=== PATIENT | male | born 1945 | race Caucasian/White ===

== ENCOUNTER → 2019-09-17 11:13 | Outpatient (BNVA) | payer MEDICARE, OTHER, SELFPAY | PROVIDERS: Family Provider Internal Medicine; PCP Internal Medicine; Visit Provider Internal Medicine Cardiovascular Disease | DX: I48.91 Unspecified atrial fibrillation (principal) | CPT/HCPCS: 85610 ==

== ENCOUNTER → 2019-10-14 09:42 | Outpatient (BNVA) | payer MEDICARE, OTHER, SELFPAY | PROVIDERS: Family Provider Internal Medicine; PCP Internal Medicine; Visit Provider Internal Medicine Cardiovascular Disease | DX: I48.91 Unspecified atrial fibrillation (principal) | CPT/HCPCS: 85610 ==

== ENCOUNTER → 2019-11-09 11:27 | Outpatient (BNVA) | payer MEDICARE, OTHER, SELFPAY | PROVIDERS: Family Provider Internal Medicine; PCP Internal Medicine; Visit Provider Urology | DX: N13.8 Other obstructive and reflux uropathy (principal); N40.1 Benign prostatic hyperplasia with lower urinary tract symptoms; C61 Malignant neoplasm of prostate; R30.0 Dysuria; R31.0 Gross hematuria | CPT/HCPCS: 80053; 81001; 84153 ==

== ENCOUNTER → 2019-11-11 10:10 | Outpatient (BNVA) | payer MEDICARE, OTHER, SELFPAY | PROVIDERS: Family Provider Internal Medicine; PCP Internal Medicine; Visit Provider Internal Medicine Cardiovascular Disease | DX: I48.91 Unspecified atrial fibrillation (principal) | CPT/HCPCS: 85610 ==

== ENCOUNTER → 2019-11-18 08:55 | Outpatient (BNVA) | payer MEDICARE, OTHER, SELFPAY | PROVIDERS: Family Provider Internal Medicine; PCP Internal Medicine; Visit Provider Internal Medicine Cardiovascular Disease | DX: I48.91 Unspecified atrial fibrillation (principal) | CPT/HCPCS: 85610 ==

== ENCOUNTER → 2020-01-19 08:02 | Outpatient (BNVA) | payer MEDICARE, OTHER, SELFPAY | PROVIDERS: Family Provider Internal Medicine; PCP Internal Medicine; Visit Provider Urology | DX: R31.0 Gross hematuria (principal); C61 Malignant neoplasm of prostate | CPT/HCPCS: 81001 ==

== ENCOUNTER → 2020-07-24 08:37 | Outpatient (BNVA) | payer MEDICARE, OTHER, SELFPAY | PROVIDERS: PCP Internal Medicine; Visit Provider Urology | DX: N40.1 Benign prostatic hyperplasia with lower urinary tract symptoms (principal); C61 Malignant neoplasm of prostate; R31.0 Gross hematuria | CPT/HCPCS: 81003; 84153 ==

== ENCOUNTER 2020-10-27 08:20 | Outpatient (CLI) | payer MEDICARE, OTHER, SELFPAY ==
--- NOTE | 2020-10-27 08:31 | USCV_ITS ---
Deacon Allred Age: 75 Gender: M : 1945 Exam Date: 10/27/2020 08:49 Ordering Phys: Rios Rosales MD Technologist: Navid Arevalo [place] [facility] [place]: AV PROS BP: 150 / 87 HR: 112 Rhythm: Sinus Technical Quality: FAIR MEASUREMENTS (Male / Female) Normal Values 2D ECHO LV Diastolic Diameter PLAX 5.8 cm 4.2 - 5.9 / 3.9 - 5.3 cm LV Systolic Diameter PLAX 4.5 cm IVS Diastolic Thickness 1.1 cm 0.6 - 1.0 / 0.6 - 0.9 cm IVS Systolic Thickness 1.5 cm LVPW Diastolic Thickness 1.2 cm 0.6 - 1.0 / 0.6 - 0.9 cm LVPW Systolic Thickness 1.0 cm LVOT Diameter 2.2 cm LV Ejection Fraction 2D Teich 43.7 % LV Ejection Fraction MOD 2C 50.5 % LV Ejection Fraction 2C AL 47.1 % LA Diameter 5.9 cm LA Width 5.2 cm LA Height 6.7 cm RA Width 4.5 cm RA Height 5.4 cm Aorta at Sinotubular Diameter 2.3 cm M-MODE LV Diastolic Diameter MM 5.0 cm 4.2 - 5.9 / 3.9 - 5.3 cm LV Systolic Diameter MM 3.5 cm LV Ejection Fraction MM Teich 57.1 % IVS Diastolic Thickness MM 1.1 cm 0.6 - 1.0 / 0.6 - 0.9 cm IVS Systolic Thickness MM 1.5 cm LVPW Diastolic Thickness MM 1.4 cm 0.6 - 1.0 / 0.6 - 0.9 cm LVPW Systolic Thickness MM 2.0 cm RV Diastolic Diameter MM 2.9 cm MV E Point Septal Separation 1.6 cm DOPPLER AV Peak Velocity 167.3 cm/s LVOT Peak Velocity 82.0 cm/s AV Area Cont Eq vti 1.9 cm squared AV Area Cont Eq pk 1.8 cm squared MV Area PHT 5.0 cm squared Mitral E to A Ratio 1.3 MV E' Velocity 54.8 cm/s Mitral E to MV E' Ratio 40.9 Mitral E to LV E' Lateral Ratio 31.3 Mitral E to LV E' Septal Ratio 58.8 TR Peak Velocity 230.7 cm/s TR Peak Gradient 21.3 mmHg Right Atrial Pressure 3.0 mmHg Pulmonary Artery Systolic Pressu 24.3 mmHg PV Peak Velocity 113.0 cm/s FINDINGS Left Ventricle Left ventricle not well visualized. Probably mildly drcreased left ventricular function. This study is inadequate for estimation of regional wall motion abnormality. Right Ventricle Probably mildly reduced right ventricular function. Right ventricular systolic pressure 28 mmHg. Right Atrium Mildly increased right atrial size. Left Atrium Severely increased left atrial size. Mitral Valve Thickened mitral valve. No mitral valve stenosis. Aortic Valve s/p 29 mm Manpreet 3 TAVR valve . TAVR valve is well seated and normally functioning. Aortic valve peak velocity 1.7 m/s and mean gradient 5 mm Hg. No significant valvular or hanna-valvular regurgitation noted. Tricuspid Valve Tricuspid valve not well visualized. Pulmonic Valve Pulmonic valve not well visualized. Pericardium No pericardial effusion. Aorta Aorta not well visualized. CONCLUSIONS 1. This is a technically very difficult study. 2. Probably mildly drcreased left ventricular function. This study is inadequate for estimation of regional wall motion abnormality. 3. TAVR valve is well seated and normally functioning. Aortic valve peak velocity 1.7 m/s and mean gradient 5 mm Hg. No significant valvular or hanna-valvular regurgitation noted. 4. Repeat study with ultrasound enhancing agent is recommended. Sonia Woodson MD (Electronically Signed) Final Date: 31 October 2020 07:54 S
== END 2020-10-27 08:21 | disposition home or self-care (01) ==
PROVIDERS: PCP Internal Medicine; Visit Provider Internal Medicine Cardiovascular Disease
DX: Z95.2 Presence of prosthetic heart valve (principal)
CPT/HCPCS: 93306

== ENCOUNTER 2020-11-02 14:00 | Outpatient (CLI) | payer MEDICARE, OTHER, SELFPAY ==
--- NOTE | 2020-11-02 14:12 | USCV_ITS ---
Deacon Allred Age: 75 Gender: M : 1945 Exam Date: 11/02/2020 14:24 Ordering Phys: Sonia Woodson MD ([email or web address]) Technologist: Navid Arevalo [place]am [place] [facility] [place] Indication: S/p transcatheter aortic valve replacement BP: 143 / 83 HR: 74 Rhythm: Sinus Technical Quality: Adequate MEASUREMENTS (Male / Female) Normal Values 2D ECHO LVOT Diameter 2.0 cm LV Ejection Fraction MOD 2C 59.0 % LV Ejection Fraction 2C AL 60.4 % DOPPLER AV Peak Velocity 182.0 cm/s LVOT Peak Velocity 88.0 cm/s AV Area Cont Eq vti 1.4 cm squared AV Area Cont Eq pk 1.5 cm squared FINDINGS Left Ventricle Normal left ventricular cavity size. Normal left ventricular systolic function. Left ventricular ejection fraction is estimated at 60 %. No regional wall motion abnormalities. Abnormal (paradoxical) septal motion consistent with postoperative status. Right Ventricle Normal right ventricular size and systolic function. Right Atrium Right atrium not well visualized. Left Atrium Left atrium not well visualized. Mitral Valve Mitral valve not well visualized. Aortic Valve Aortic valve not well visualized. Tricuspid Valve Tricuspid valve not well visualized. Pulmonic Valve Pulmonic valve not well visualized. Pericardium No pericardial effusion. Aorta CONCLUSIONS 1. This is a limited echocardiogram with ultrasound enhancing agent Optison. 2. Normal left ventricular cavity size and systolic function. Left ventricular ejection fraction is estimated at 60 %. No regional wall motion abnormalities. 3. S/p Transcatheter aortic valve in situ. Peak velocity 1.8 m second and peak gradient 13 mmHg. Dimensionless valve index of 0.48. Sonia Woodson MD (Electronically Signed) Final Date: 06 November 2020 18:17 S
[2020-11-02] MEDS: perflutren protein-a microsphr 0.22 mg/mL SDV 3 mL IV (16:07)
== END 2020-11-02 14:01 | disposition home or self-care (01) ==
LOC: RAD 14:04
PROVIDERS: PCP Internal Medicine; Visit Provider Internal Medicine Cardiovascular Disease
DX: Z95.4 Presence of other heart-valve replacement (principal)
CPT/HCPCS: C8924; Q9956

== ENCOUNTER 2020-11-08 08:14 | Outpatient (CLI) | payer MEDICARE, OTHER, SELFPAY ==
--- NOTE | 2020-11-08 08:34 | CT_ITS ---
WS: [id number] CT scan of the thoracic and abdominal aorta with and without IV contrast. Additional two-dimensional coronal and sagittal reconstruction was performed. MIP images were also performed. 11/08/2020 Clinical Data: ASSESS ABDOMINAL AORTIC ANEURYSM Comparison: CTA of the abdominal aorta, 11/07/2016. DLP: 2104.[address] scans at [facility] use at least one of these dose optimization techniques: automat ed exposure control; mA and/or kV adjustment per patient size (includes targeted exams where dose is matched to clinical indication); or iterative reconstruction. Findings: Vascular findings of the chest and abdomen: The thoracic aorta is normal in size with calcification in the wall. There is an artificial aortic va lve. The pulmonary arterial system is normal in size. The abdominal aortic aneurysm has been repaired with an aortic stent graft. No endoleak is seen on the delayed films. The branches of the abdominal aorta including the renal, celiac and SMA remain patent. The aortic bifurcation into the common iliac arteries is seen and again there is no endoleak from the iliac portion of the graft. The abdominal a ortic aneurysm itself remains unchanged in size with calcification in the wall. Nonvascular findings of the chest and abdomen. The lungs show no nodules, masses or effusions. No pneumonia or pneumothorax is noted. There is coron cathy artery calcification. The heart is normal with no pericardial effusion. Midline sternotomy suture s are seen. The trachea bifurcates normally into the bronchi. The bones of the thorax show osteoarthr itic change of the thoracic vertebral bodies. The liver, spleen, pancreas and adrenal glands are not remarkable. There are gallbladder is absent. T he kidneys are normal with normal excretion and no masses or hydronephrosis. There are small left re nal cortical cysts. The stomach, small bowel and visualized colon are unremarkable. No appendicitis i s seen. No abscess, adenopathy, ascites, mass, obstruction or free air is seen. The lumbar vertebral bodies show moderate osteoarthritic change and Schmorl's nodes. CT/CT angio chest abdomen Impression: 1. Aortic endograft extending from the infrarenal region into both common iliac arteries with no evidence of endoleak. 2. No change in size of tribe aortic aneurysm. 3. Artificial aortic valve in good position. 4. Negative for acute cardiopulmonary or intra-abdominal abnormalities.
[2020-11-08] MEDS: iohexol 350 mg/mL 100 mL Btl IV (10:18)
== END 2020-11-08 08:15 | disposition home or self-care (01) ==
LOC: RADWPI 08:17
PROVIDERS: PCP Internal Medicine; Visit Provider Internal Medicine Cardiovascular Disease
DX: I71.4 Abdominal aortic aneurysm, without rupture (principal); Z95.2 Presence of prosthetic heart valve
CPT/HCPCS: 71275; 74175; Q9967

== ENCOUNTER → 2020-12-19 10:03 | Outpatient (BNVA) | payer MEDICARE, OTHER, SELFPAY | PROVIDERS: PCP Internal Medicine; Visit Provider Internal Medicine Cardiovascular Disease | DX: I48.91 Unspecified atrial fibrillation (principal) | CPT/HCPCS: 85610 ==

== ENCOUNTER → 2021-01-02 10:09 | Outpatient (BNVA) | payer MEDICARE, OTHER, SELFPAY | PROVIDERS: PCP Internal Medicine; Visit Provider Internal Medicine Cardiovascular Disease | DX: I48.91 Unspecified atrial fibrillation (principal) | CPT/HCPCS: 85610 ==

== ENCOUNTER → 2021-01-23 09:21 | Outpatient (BNVA) | payer MEDICARE, OTHER, SELFPAY | PROVIDERS: PCP Internal Medicine; Visit Provider Urology | DX: C61 Malignant neoplasm of prostate (principal); N40.1 Benign prostatic hyperplasia with lower urinary tract symptoms | CPT/HCPCS: 81003; G0103 ==

== ENCOUNTER → 2021-01-30 10:04 | Outpatient (BNVA) | payer MEDICARE, OTHER, SELFPAY | PROVIDERS: PCP Internal Medicine; Visit Provider Internal Medicine Cardiovascular Disease | DX: I48.91 Unspecified atrial fibrillation (principal) | CPT/HCPCS: 85610 ==

== ENCOUNTER → 2021-02-27 10:12 | Outpatient (BNVA) | payer MEDICARE, OTHER, SELFPAY | PROVIDERS: PCP Internal Medicine; Visit Provider Internal Medicine Cardiovascular Disease | DX: I48.91 Unspecified atrial fibrillation (principal); Z79.01 Long term (current) use of anticoagulants | CPT/HCPCS: 85610 ==

== ENCOUNTER → 2021-03-06 10:30 | Outpatient (BNVA) | payer MEDICARE, OTHER, SELFPAY | PROVIDERS: PCP Internal Medicine; Visit Provider Internal Medicine Cardiovascular Disease | DX: I48.91 Unspecified atrial fibrillation (principal); Z79.01 Long term (current) use of anticoagulants | CPT/HCPCS: 85610 ==

== ENCOUNTER → 2021-04-03 10:10 | Outpatient (BNVA) | payer MEDICARE, OTHER, SELFPAY | PROVIDERS: PCP Internal Medicine; Visit Provider Internal Medicine Cardiovascular Disease | DX: I48.91 Unspecified atrial fibrillation (principal); Z79.01 Long term (current) use of anticoagulants | CPT/HCPCS: 85610 ==

== ENCOUNTER → 2021-05-01 10:58 | Outpatient (BNVA) | payer MEDICARE, OTHER, SELFPAY | PROVIDERS: PCP Internal Medicine; Visit Provider Internal Medicine Cardiovascular Disease | DX: I48.91 Unspecified atrial fibrillation (principal); Z79.01 Long term (current) use of anticoagulants | CPT/HCPCS: 85610 ==

== ENCOUNTER → 2021-05-29 08:27 | Outpatient (BNVA) | payer MEDICARE, OTHER, SELFPAY | PROVIDERS: PCP Internal Medicine; Visit Provider Internal Medicine Cardiovascular Disease | DX: I48.91 Unspecified atrial fibrillation (principal); Z79.01 Long term (current) use of anticoagulants | CPT/HCPCS: 85610 ==

== ENCOUNTER → 2021-06-26 11:10 | Outpatient (BNVA) | payer MEDICARE, OTHER, SELFPAY | PROVIDERS: PCP Internal Medicine; Visit Provider Internal Medicine Cardiovascular Disease | DX: I48.91 Unspecified atrial fibrillation (principal); Z79.01 Long term (current) use of anticoagulants | CPT/HCPCS: 85610 ==

== ENCOUNTER → 2021-08-14 08:55 | Outpatient (BNVA) | payer MEDICARE, OTHER, SELFPAY | PROVIDERS: PCP Internal Medicine; Visit Provider Internal Medicine Cardiovascular Disease | DX: I48.91 Unspecified atrial fibrillation (principal); Z79.01 Long term (current) use of anticoagulants | CPT/HCPCS: 85610 ==

== ENCOUNTER → 2021-08-21 08:40 | Outpatient (BNVA) | payer MEDICARE, OTHER, SELFPAY | PROVIDERS: PCP Internal Medicine; Visit Provider Internal Medicine Cardiovascular Disease | DX: I48.91 Unspecified atrial fibrillation (principal) | CPT/HCPCS: 85610 ==

== ENCOUNTER → 2021-08-28 10:56 | Outpatient (BNVA) | payer MEDICARE, OTHER, SELFPAY | PROVIDERS: PCP Internal Medicine; Visit Provider Urology | DX: N40.1 Benign prostatic hyperplasia with lower urinary tract symptoms (principal) | CPT/HCPCS: 81003 ==

== ENCOUNTER → 2021-09-18 09:05 | Outpatient (BNVA) | payer MEDICARE, OTHER, SELFPAY | PROVIDERS: PCP Internal Medicine; Visit Provider Internal Medicine Cardiovascular Disease | DX: I48.91 Unspecified atrial fibrillation (principal); Z79.01 Long term (current) use of anticoagulants | CPT/HCPCS: 85610 ==

== ENCOUNTER → 2021-10-02 09:17 | Outpatient (BNVA) | payer MEDICARE, OTHER, SELFPAY | PROVIDERS: PCP Internal Medicine; Visit Provider Internal Medicine Cardiovascular Disease | DX: I48.91 Unspecified atrial fibrillation (principal); Z79.01 Long term (current) use of anticoagulants | CPT/HCPCS: 85610 ==

== ENCOUNTER → 2021-10-09 08:34 | Outpatient (BNVA) | payer MEDICARE, OTHER, SELFPAY | PROVIDERS: PCP Internal Medicine; Visit Provider Internal Medicine Cardiovascular Disease | DX: I48.91 Unspecified atrial fibrillation (principal); Z79.01 Long term (current) use of anticoagulants | CPT/HCPCS: 85610 ==

== ENCOUNTER → 2021-11-06 12:37 | Outpatient (BNVA) | payer MEDICARE, OTHER, SELFPAY | PROVIDERS: PCP Internal Medicine; Visit Provider Nurse Practitioner Family | DX: I25.10 Atherosclerotic heart disease of native coronary artery without angina pectoris (principal); Z87.891 Personal history of nicotine dependence; I48.91 Unspecified atrial fibrillation; Z79.01 Long term (current) use of anticoagulants; Z95.1 Presence of aortocoronary bypass graft | CPT/HCPCS: 99214 ==

== ENCOUNTER → 2021-12-04 09:22 | Outpatient (BNVA) | payer MEDICARE, OTHER, SELFPAY | PROVIDERS: PCP Internal Medicine; Visit Provider Internal Medicine Cardiovascular Disease | DX: I48.91 Unspecified atrial fibrillation (principal) | CPT/HCPCS: 85610 ==

== ENCOUNTER 2021-12-14 07:25 | Outpatient (CLI) | payer MEDICARE, OTHER, SELFPAY ==
[2021-12-14 07:35] VITALS: BMI 22.8
--- NOTE | 2021-12-14 08:00 | NMCV_ITS ---
NM goyo perf SPECT r/s* [id number] [place] Deacon Age: 76 Gender: M : 1945 Exam Date: 12/14/2021 08:00 Ordering Phys: Larisa Duran Technologist: SANTI Taylor Exam Location: [facility] Indications: ATHEROSCLEROTIC HEART DISEASE STRESS TEST Please [facility] for [facility] IMAGE PROTOCOL Rest/Stress 1 Exercise Day Radiopharmaceutical Dose (mCi) Administration Site Administered by Rest: Tc-99m 11.0 IV SANTI Taylor Sestamibi Stress:Tc-99m 32.7 IV SANTI Finn Sestamibi Rest: 14-Dec-2021 60 Discovery 630 Stress: 14-Dec-2021 15 Discovery 630 Radiopharmaceutical was injected at 85 % maximum heart rate. Supine position only as patient was unable to lay prone. SPECT RESULTS Technical Quality: Excellent Raw Data Analysis: Normal Image Corrections: No attenuation or motion correction applied Summed Stress Score: 3 Summed Rest Score: 2 Summed Difference Score: 3 PERFUSION FINDINGS Small to moderate area of moderately decreased tracer uptake in the basal and mid inferolateral region with some reversibility FUNCTIONAL RESULTS (calculated via Gated SPECT) Stress Image LV EF (%): 54 Stress EDV (mL):136 TID: 1.17 Stress ESV (mL):62 FUNCTIONAL FINDINGS: Segmental wall motion analysis revealing no gross wall motion abnormalities IMPRESSIONS 1. Myocardial perfusion imaging revealing small to moderate area of decreased tracer uptake in the inferolateral region, with significant reversibility suggesting myocardial scarring with ischemia in the distribution of the left circumflex artery. 2. Normal LV ejection fraction 54%. 3. LV wall motion analysis revealing no gross wall motion abnormalities. 4. Mildly dilated LV cavity with an end-systolic volume of 62 mL. 5. Slightly elevated transient ischemic dilatation ratio of 1.17, also may suggest endocardial ischemia. Compared to the study from 04/30/2019, the elevated transient ischemic dilatation ratio appears to be new Dr Chet Hartman MD [facility] (Electronically Signed) Final Date: 14 December 2021 13:39 S
--- NOTE | 2021-12-14 08:00 | ECG_ITS ---
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 Interpretive Statements NAME OF STUDY: EXERCISE SESTAMIBI STRESS TEST INDICATION: Angina, PROCEDURE: The baseline electrocardiogram showed sinus tachycardia with a nonspecific ST-T changes in the anterolateral and inferior leads. At the baseline, the patient's blood pressure was 143/106 mm Hg with a heart rate of 103/min. The patient exercised for 2 minutes and 50 seconds on a standard Boogie protocol. Patient attained a maximum heart rate of 152 beats per minute(106% of the maximum predicted heart rate) with a blood pressure at the peak exercise of 179/93 mm Hg. The EKG at the peak exercise revealed [address]ressions in lead II, III, aVF, V4, V5 and V6. . Patient did not have any chest pain or any significant arrhythmis with the exercise Sestamibi was injected 1 minute prior to the peak exercise During the recovery phase, there were no new changes. Blood pressure at the end of the recovery phase was 160/78 mm Hg with a heart rate of 106 per minute. The EKG during the recovery phase, reported almost back to the baseline CONCLUSION: 1. Abnormal EKG response to [treadmill exercise suggesting inferolateral wall ischemia 2. No exercise-induced chest pain or cardiac arrhythmia 3. Markedly impaired exercise tolerance, attained a maximum of 4.6 METs 4. Sestamibi/Sestamibi perfusion results pending; see separate report. Electronically Signed On 12-14-2021 23:46:32 CDT by Chet Hartman M.D. [id number]
[2021-12-14 09:55] VITALS: BP 160/78; PULSE 104
== END 2021-12-14 07:26 | disposition home or self-care (01) ==
PROVIDERS: PCP Internal Medicine; Visit Provider Nurse Practitioner Family
DX: I25.10 Atherosclerotic heart disease of native coronary artery without angina pectoris (principal)
CPT/HCPCS: 78452; 93017; A9500

== ENCOUNTER → 2022-01-01 10:24 | Outpatient (BNVA) | payer MEDICARE, OTHER, SELFPAY | PROVIDERS: PCP Internal Medicine; Visit Provider Internal Medicine Cardiovascular Disease | DX: Z79.01 Long term (current) use of anticoagulants (principal) | CPT/HCPCS: 85610 ==

== ENCOUNTER → 2022-01-15 10:05 | Outpatient (BNVA) | payer MEDICARE, OTHER, SELFPAY | PROVIDERS: PCP Internal Medicine; Visit Provider Internal Medicine Cardiovascular Disease | DX: Z79.01 Long term (current) use of anticoagulants (principal) | CPT/HCPCS: 85610 ==

== ENCOUNTER → 2022-01-28 13:21 | Outpatient (BNVA) | payer MEDICARE, OTHER, SELFPAY | PROVIDERS: PCP Internal Medicine; Visit Provider Internal Medicine Cardiovascular Disease | DX: I25.10 Atherosclerotic heart disease of native coronary artery without angina pectoris (principal); I48.91 Unspecified atrial fibrillation; I10 Essential (primary) hypertension; I35.0 Nonrheumatic aortic (valve) stenosis; Z79.01 Long term (current) use of anticoagulants; Z87.891 Personal history of nicotine dependence | CPT/HCPCS: 99214 ==

== ENCOUNTER → 2022-02-19 10:09 | Outpatient (BNVA) | payer MEDICARE, OTHER, SELFPAY | PROVIDERS: PCP Internal Medicine; Visit Provider Internal Medicine Cardiovascular Disease | DX: Z79.01 Long term (current) use of anticoagulants (principal) | CPT/HCPCS: 85610 ==

== ENCOUNTER → 2022-03-21 14:05 | Outpatient (BNVA) | payer MEDICARE, OTHER, SELFPAY | PROVIDERS: PCP Internal Medicine; Visit Provider Internal Medicine Cardiovascular Disease | DX: I48.91 Unspecified atrial fibrillation (principal); Z51.81 Encounter for therapeutic drug level monitoring; Z79.01 Long term (current) use of anticoagulants | CPT/HCPCS: 85610 ==

== ENCOUNTER 2022-04-01 13:58 | Outpatient (CLI) | payer MEDICARE, OTHER, SELFPAY | END 2022-04-01 13:59 | disposition home or self-care (01) | PROVIDERS: PCP Internal Medicine; Visit Provider Urology | DX: C61 Malignant neoplasm of prostate (principal) | CPT/HCPCS: 36415; 84153 ==

== ENCOUNTER → 2022-04-04 13:02 | Outpatient (BNVA) | payer MEDICARE, OTHER, SELFPAY | PROVIDERS: PCP Internal Medicine; Visit Provider Urology | DX: C61 Malignant neoplasm of prostate (principal); N40.1 Benign prostatic hyperplasia with lower urinary tract symptoms | CPT/HCPCS: 81003; 99213 ==

== ENCOUNTER → 2022-04-16 10:39 | Outpatient (BNVA) | payer MEDICARE, OTHER, SELFPAY | PROVIDERS: PCP Internal Medicine; Visit Provider Internal Medicine Cardiovascular Disease | DX: I48.91 Unspecified atrial fibrillation (principal); Z51.81 Encounter for therapeutic drug level monitoring; Z79.01 Long term (current) use of anticoagulants | CPT/HCPCS: 85610 ==

== ENCOUNTER → 2022-05-14 10:34 | Outpatient (BNVA) | payer MEDICARE, OTHER, SELFPAY | PROVIDERS: PCP Internal Medicine; Visit Provider Internal Medicine Cardiovascular Disease | DX: I48.91 Unspecified atrial fibrillation (principal); Z79.01 Long term (current) use of anticoagulants | CPT/HCPCS: 85610 ==

== ENCOUNTER → 2022-06-11 10:08 | Outpatient (BNVA) | payer MEDICARE, OTHER, SELFPAY | PROVIDERS: PCP Internal Medicine; Visit Provider Internal Medicine Cardiovascular Disease | DX: I48.91 Unspecified atrial fibrillation (principal); Z79.01 Long term (current) use of anticoagulants | CPT/HCPCS: 85610 ==

== ENCOUNTER → 2022-06-25 10:22 | Outpatient (BNVA) | payer MEDICARE, OTHER, SELFPAY | PROVIDERS: PCP Internal Medicine; Visit Provider Internal Medicine Cardiovascular Disease | DX: I48.91 Unspecified atrial fibrillation (principal); Z79.01 Long term (current) use of anticoagulants | CPT/HCPCS: 85610 ==

== ENCOUNTER → 2022-07-01 13:25 | Outpatient (BNVA) | payer MEDICARE, OTHER, SELFPAY | PROVIDERS: PCP Internal Medicine; Visit Provider Podiatrist Foot & Ankle Surgery | DX: M25.472 Effusion, left ankle (principal); M25.471 Effusion, right ankle; M54.16 Radiculopathy, lumbar region; B35.3 Tinea pedis; B35.1 Tinea unguium | CPT/HCPCS: 73630; 99204 ==

== ENCOUNTER 2022-07-11 08:20 | Outpatient (CLI) | payer MEDICARE, OTHER, SELFPAY ==
[2022-07-11 09:42] LABS: Prostate Specific AG Urology 0.74 ng/mL (0-4)
== END 2022-07-11 08:21 | disposition home or self-care (01) ==
LOC: LAB 08:25
PROVIDERS: PCP Internal Medicine; Visit Provider Urology
DX: C61 Malignant neoplasm of prostate (principal)
CPT/HCPCS: 36415; 84153

== ENCOUNTER → 2022-07-15 14:29 | Outpatient (BNVA) | payer MEDICARE, OTHER, SELFPAY | PROVIDERS: PCP Internal Medicine; Visit Provider Urology | DX: C61 Malignant neoplasm of prostate (principal); N40.1 Benign prostatic hyperplasia with lower urinary tract symptoms | CPT/HCPCS: 81003; 99213 ==

== ENCOUNTER → 2022-07-25 10:21 | Outpatient (BNVA) | payer MEDICARE, OTHER, SELFPAY | PROVIDERS: PCP Internal Medicine; Visit Provider Internal Medicine Cardiovascular Disease | DX: I48.91 Unspecified atrial fibrillation (principal); Z79.01 Long term (current) use of anticoagulants | CPT/HCPCS: 85610 ==

== ENCOUNTER → 2022-07-31 13:07 | Outpatient (BNVA) | payer MEDICARE, OTHER, SELFPAY | PROVIDERS: PCP Internal Medicine; Visit Provider Podiatrist Foot & Ankle Surgery | DX: B35.1 Tinea unguium (principal); M25.472 Effusion, left ankle; M25.471 Effusion, right ankle; B35.3 Tinea pedis; M54.16 Radiculopathy, lumbar region | CPT/HCPCS: 99213 ==

== ENCOUNTER → 2022-08-27 10:12 | Outpatient (BNVA) | payer MEDICARE, OTHER, SELFPAY | PROVIDERS: PCP Internal Medicine; Visit Provider Internal Medicine Cardiovascular Disease | DX: I48.91 Unspecified atrial fibrillation (principal); Z79.01 Long term (current) use of anticoagulants | CPT/HCPCS: 85610 ==

== ENCOUNTER → 2022-08-28 14:09 | Outpatient (BNVA) | payer MEDICARE, OTHER, SELFPAY | PROVIDERS: PCP Internal Medicine; Visit Provider Podiatrist Foot & Ankle Surgery | DX: R21 Rash and other nonspecific skin eruption (principal); M25.472 Effusion, left ankle; M25.471 Effusion, right ankle; M54.16 Radiculopathy, lumbar region; B35.3 Tinea pedis; B35.1 Tinea unguium | CPT/HCPCS: 11721 ==

== ENCOUNTER → 2022-09-03 13:28 | Outpatient (BNVA) | payer MEDICARE, OTHER, SELFPAY | PROVIDERS: PCP Internal Medicine; Visit Provider Internal Medicine Cardiovascular Disease | DX: I48.91 Unspecified atrial fibrillation (principal) | CPT/HCPCS: 85610 ==

== ENCOUNTER → 2022-09-10 16:06 | Outpatient (BNVA) | payer MEDICARE, OTHER, SELFPAY | PROVIDERS: PCP Internal Medicine; Visit Provider Internal Medicine Cardiovascular Disease | DX: I35.0 Nonrheumatic aortic (valve) stenosis (principal); Z79.01 Long term (current) use of anticoagulants | CPT/HCPCS: 85610 ==

== ENCOUNTER → 2022-09-17 11:55 | Outpatient (BNVA) | payer MEDICARE, OTHER, SELFPAY | PROVIDERS: PCP Internal Medicine; Visit Provider Internal Medicine Cardiovascular Disease | DX: I35.0 Nonrheumatic aortic (valve) stenosis (principal); I48.91 Unspecified atrial fibrillation | CPT/HCPCS: 85610 ==

== ENCOUNTER → 2022-09-19 15:05 | Outpatient (BNVA) | payer MEDICARE, OTHER, SELFPAY | PROVIDERS: PCP Internal Medicine; Visit Provider Internal Medicine Cardiovascular Disease | DX: I48.91 Unspecified atrial fibrillation (principal); Z79.01 Long term (current) use of anticoagulants; I10 Essential (primary) hypertension; I25.10 Atherosclerotic heart disease of native coronary artery without angina pectoris; Z95.1 Presence of aortocoronary bypass graft; I35.0 Nonrheumatic aortic (valve) stenosis; Z87.891 Personal history of nicotine dependence | CPT/HCPCS: 99214; Q3014 ==

== ENCOUNTER → 2022-10-15 14:30 | Outpatient (BNVA) | payer MEDICARE, OTHER, SELFPAY | PROVIDERS: PCP Internal Medicine; Visit Provider Internal Medicine Cardiovascular Disease | DX: I48.91 Unspecified atrial fibrillation (principal) | CPT/HCPCS: 85610 ==

== ENCOUNTER → 2022-11-11 09:07 | Outpatient (BNVA) | payer MEDICARE, OTHER, SELFPAY | PROVIDERS: PCP Internal Medicine; Visit Provider Podiatrist Foot & Ankle Surgery | DX: B35.1 Tinea unguium (principal); M25.472 Effusion, left ankle | CPT/HCPCS: 11721 ==

== ENCOUNTER → 2022-11-12 10:27 | Outpatient (BNVA) | payer MEDICARE, OTHER, SELFPAY | PROVIDERS: PCP Internal Medicine; Visit Provider Internal Medicine Cardiovascular Disease | DX: I35.0 Nonrheumatic aortic (valve) stenosis (principal) | CPT/HCPCS: 85610 ==

== ENCOUNTER → 2022-11-26 10:17 | Outpatient (BNVA) | payer MEDICARE, OTHER, SELFPAY | PROVIDERS: PCP Internal Medicine; Visit Provider Internal Medicine Cardiovascular Disease | DX: I48.91 Unspecified atrial fibrillation (principal) | CPT/HCPCS: 85610 ==

== ENCOUNTER → 2022-12-24 10:31 | Outpatient (BNVA) | payer MEDICARE, OTHER, SELFPAY | PROVIDERS: PCP Internal Medicine; Visit Provider Internal Medicine Cardiovascular Disease | DX: I48.91 Unspecified atrial fibrillation (principal) | CPT/HCPCS: 85610 ==

== ENCOUNTER → 2023-01-22 10:45 | Outpatient (BNVA) | payer MEDICARE, OTHER, SELFPAY | PROVIDERS: PCP Internal Medicine; Visit Provider Internal Medicine Cardiovascular Disease | DX: I48.91 Unspecified atrial fibrillation (principal) | CPT/HCPCS: 85610 ==

== ENCOUNTER → 2023-02-19 11:07 | Outpatient (BNVA) | payer MEDICARE, OTHER, SELFPAY | PROVIDERS: PCP Internal Medicine; Visit Provider Internal Medicine Cardiovascular Disease | DX: I48.91 Unspecified atrial fibrillation (principal) | CPT/HCPCS: 85610 ==

== ENCOUNTER → 2023-03-04 10:50 | Outpatient (BNVA) | payer MEDICARE, OTHER, SELFPAY | PROVIDERS: PCP Internal Medicine; Visit Provider Internal Medicine Cardiovascular Disease | DX: I48.91 Unspecified atrial fibrillation (principal) | CPT/HCPCS: 85610 ==

== ENCOUNTER → 2023-04-01 10:48 | Outpatient (BNVA) | payer MEDICARE, OTHER, SELFPAY | PROVIDERS: PCP Internal Medicine; Visit Provider Internal Medicine Cardiovascular Disease | DX: I48.91 Unspecified atrial fibrillation (principal) | CPT/HCPCS: 85610 ==

== ENCOUNTER 2023-04-13 09:25 | Emergency (ER) | payer MEDICARE, OTHER, SELFPAY ==
[2023-04-13 09:37] VITALS: BP 175/87; PULSE 87; RESP 15; O2SAT 94
--- NOTE | 2023-04-13 09:41 | ECG_ITS ---
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 Measurements Intervals [place] Rate: 78 P: 0 OK: 0 QRS: 42 QRSD: 110 T: 37 QT: 397 QTc: 455 Interpretive Statements ATRIAL FIBRILLATION POSSIBLE LEFT VENTRICULAR HYPERTROPHY [VOLTAGE CRITERIA PLUS LAE OR QRS WIDENING] Compared to ECG 04/29/2019 16:31:49 ST (T wave) deviation no longer present Electronically Signed On 04-13-2023 11:06:06 CDT by Sonia Woodson M.D. [id number]
[2023-04-13 09:44] LABS: Glucose Point of Care 185 mg/dL (70-110)
--- NOTE | 2023-04-13 10:05 | MRR_ITS ---
PROCEDURE INFORMATION: Exam: MR Head Without Contrast Exam date and time: 04/13/2023 10:26 AM Age: 77 years old Clinical indication: Other: Vertigo; Additional info: Vertigo, nausea TECHNIQUE: Imaging protocol: Magnetic resonance imaging of the head without contrast. COMPARISON: CT head wo con* [id number] 04/29/2019 3:39 PM FINDINGS: Brain: No areas of restricted diffusion concerning for infarct. No signs of intracranial hemorrhage. Minimal subcortical and periventricular white matter hyperintensities on axial T2 FLAIR imaging most likely consistent with chronic microvascular ischemic disease. A few focal areas of encephalomalacia measuring up to 5 mm in the bilateral basal ganglia likely consistent with old lacunar infarcts. No significant cerebral edema identified. No mass effect. No midline shift. Normal intracranial T2 flow voids identified in the anterior and posterior arterial circulation. Cerebral ventricles: Normal. No ventriculomegaly. Bones/joints: Unremarkable. Paranasal sinuses: Normal as visualized. No acute sinusitis. Mastoid air cells: Normal as visualized. No mastoid effusion. Orbital cavities: Unremarkable. Soft tissues: Unremarkable. MR/MR head wo con* [id number] IMPRESSION: 1. No acute intracranial abnormality identified. 2. Chronic microvascular ischemic disease.
--- NOTE | 2023-04-13 10:05 | W.ED.NEUROSD ---
HPI - Neuro Symptoms/Deficit General: Chief Complaint: Dizziness Stated Complaint: V/dizziness Time Seen by Provider: 04/13/23 09:35 Source: patient and family Mode of arrival: ambulatory Limitations: no limitations History of Present Illness: This patient was brought to the emergency part by his son because of episodes of dizziness. He states that he noted earlier this morning after he had gotten out of bed. He had an episode which was very brief but then was able to make his way to the bathroom. He states he then had coffee in his recliner and felt a little funny and then tried to get out of recliner and lost his balance but did not fall. His son collaborates that he seems to be unsteady on his feet and having some balance issues when he is moving around. No headache, difficulty with speech, focal numbness or weakness noted. He does get nauseated when these episodes occur. They seem to be provoked by change in position or head movement. The patient's not had any recent upper respiratory infections, recent falls traumas, change in his medications etc. Denies any change in his hearing, tinnitus etc. He has a history of having prior four-vessel bypass, abdominal aortic aneurysm graft, aortic valve repair. He takes warfarin. He also had increasing dyspnea with exertion recently but no associated chest pain, palpitations etc. Timing confirmed by: family member Associated symptoms: Reports nausea and vomiting; Deny chest pain, headache(s) or syncope Review of Systems Const: Denies: fever(s) or chills Eyes: Denies: change in vision or blurry vision ENMT: Denies: throat pain or odynophagia Card: Denies: chest pain, palpitations, syncope or pre-syncope Resp: Denies: productive cough, non-productive cough or wheezing GI: Reports: nausea and vomiting; Denies: abdominal pain : Denies: difficulty urinating, dysuria or urinary frequency Musc: Denies: neck pain, back pain, extremity pain or extremity swelling Skin/Breast: Denies: rash or pruritus Neuro: Reports: dizziness; Denies: headache(s), numbness in extremities, weakness in extremities, sensory changes or Slurred speech present Psych: Denies: anxiety or depression Anatoliy/Lymph: Denies: easy bruising or easy bleeding PFS ED PFSH: Medical History Aortic stenosis Atrial fibrillation BPH loc w urin obs/LUTS CAD (coronary artery disease) History of stomach ulcers SURGERY Hyperlipidemia LDL goal <70 Prostate cancer Surgical History H/O abdominal aortic aneurysm repair H/O cataract extraction H/O endovascular stent graft for abdominal aortic aneurysm H/O left knee surgery H/O left wrist surgery H/O shoulder surgery RIGHT History of surgery of liver Hx of cholecystectomy S/P appendectomy S/P CABG x 4 S/P TAVR (transcatheter aortic valve replacement) Family History Grandfather Cancer Paternal, lung Father , AT AGE 79 Asthma Mother , AT AGE 26 MVA No problems noted. Social History Smoking and tobacco status: former smoker Quit status (tobacco): has quit using tobacco Year quit tobacco: 1976 Alcohol intake: never Substance/Drug Use: unknown Adopted: No Caregiver/support person: No Lives independently: No Household members: spouse Marital status: Current occupational status: retired Current gender identity: Male NIH stroke score NIHSS: Level Of Consciousness - 1a: 0 Level Of Consciousness Questions - 1b: Both Correct Level Of Consciousness Commands - 1c: Both Correct Best Gaze - 2: Normal Visual Aleman - 3: No Visual Loss Facial Palsy - 4: Normal Motor Arm Right - 5: No Drift Motor Arm Left - 5: No Drift Motor Leg Right - 6: No Drift Motor Leg Left - 6: No Drift Limb Ataxia - 7: Absent Sensory - 8: Normal Best Language - 9: No Aphasia Dysarthia - 10: Normal Extinction And Inattention - 11: 0 Score: Total Score: 0 Physical Exam Narrative: EXAM NARRATIVE: The patient appears to be in no acute distress. He answers questions appropriately in a goal-directed fashion. Appears to be in good spirits. Const: COMMON NORMALS: no acute distress, patient oriented x3, no limitations and alert GENERAL APPEARANCE: cooperative NUTRITIONAL APPEARANCE: overweight HENMT: COMMON NORMALS: normocephalic, atraumatic, EAC's normal, TM's normal bilaterally, moist oral mucous membranes and oropharynx normal HEAD & SCALP: normocephalic and atraumatic FACE & SINUS: face symmetric EXTERNAL AUDITORY CANAL: EAC's normal TYMPANIC MEMBRANE: TM's normal bilaterally Eye: COMMON NORMALS: Equal, round and reactive pupils present, EOMs intact bilaterally and conjunctivae normal ALIGNMENT: Yes alignment normal CONJUNCTIVA: Yes conjunctivae normal PUPIL: Yes Equal, round and reactive pupils present Neck/C-Spine: COMMON NORMALS: full ROM, supple, no JVD, Thyroid normal and No carotid bruits THYROID: Thyroid normal Chest: COMMONS NORMALS: normal inspection of the chest and normal palpation of entire chest wall Resp: COMMON NORMALS: normal respiratory effort, No retractions, No use of accessory muscles and clear to auscultation bilaterally AUSCULTATION: clear to auscultation bilaterally Cardio: COMMON NORMALS: no JVD, No murmurs present (Cardio) and Peripheral pulses 2+ throughout RHYTHM: abnormal rhythm irregularly irregular PERIPHERAL PULSES: Peripheral pulses 2+ throughout GI: COMMON NORMALS: Normal to inspection, nondistended, normoactive bowel sounds present, Soft to palpation and non-tender INSPECTION: Yes Abdominal wall edema PALPATION: Yes Soft to palpation : COMMON NORMALS: Yes no CVA tenderness BLADDER/KIDNEY EXAM: Yes no CVA tenderness Back/Pelvis: COMMON NORMALS: no CVA tenderness, thoracic and lumbar spine normal to inspection, no thoracic nor lumbar tenderness, thoraco-lumbar ROM normal and straight leg raise negative bilaterally Extremity: COMMON NORMALS: normal to inspection, full ROM, capillary refill normal, no calf tenderness and no pedal edema Neuro: COMMON NORMALS: patient oriented x3, moves all extremities, no focal motor deficits, no sensory deficits noted and deep tendon reflexes 2+ bilaterally SENSORIUM/ORIENTATION: Yes alert CRANIAL NERVES: Yes CN normal except as noted COORDINATION/BALANCE: [id number] test normal, ymfj-mi-whos test normal and does not sway with eyes open COORDINATION: [id number]-om-[id number] test normal, [id number]-tw-[id number] test normal, Romberg test normal and does not sway with eyes open OTHER: Hints exam performed. Does not appear to have abnormal findings with head impulse, no evidence of direction changing nystagmus, no evidence of vertical skew with cover uncover Psych: COMMON NORMALS: mental status grossly normal Skin: COMMON NORMALS: no rashes or lesions noted and turgor normal GENERAL SKIN EXAM: no rashes or lesions noted and turgor normal Course Reevaluation(s): Reevaluation #1: Patient states he feels much better. He states he is able to move around does not feel vertiginous or lightheaded or nauseous anymore. He denies any other concurrent symptoms at this time. No new or focal findings on reevaluation. Time: 12:16 Vital Signs: Vital signs: Vital Signs Pulse Rate 79 04/13/23 10:55 Respiratory Rate 15 04/13/23 10:55 Blood Pressure 175/87 04/13/23 09:37 Pulse Oximetry 94 04/13/23 10:55 Oxygen Delivery Me thod Room Air 04/13/23 10:55 MDM - Neuro Symptoms/Deficit Medical Decision Making Patient with acute onset of intermittent dizziness and discoordination today. No associated focal findings. No history of trauma. Patient is on anticoagulants for both atrial fibrillation with stroke reduction as well as history of a aortic valve replacement. Initial neurologic examination found that his symptoms could be provoked with changing of position however his hints exam was reassuring. We will proceed with additional work-up to include imaging. Evaluation in the emergency department revealed MRI to be reassuring. Other laboratories were also reassuring including chest x-ray, BNP, sed rate etc. No evidence to suggest a central etiology to his symptoms at this time but we did discuss the limitations of current evaluation with both he and his son present. Certainly no evidence to suggest intracranial hemorrhage acute cerebellar infarction etc. based on clinical examination and imaging studies. He had some complaints of increasing dyspnea with exertion over the past few weeks but his EKG, and pro BNP, chest x-ray were reassuring. We will accelerate his cardiology follow-up appointment to later this month. At this point he is stable to be discharged we will provide him with Valium to help with any recurrent symptoms as well as discussed return precautions. Medical Records I reviewed the patient's medical records. Lab Data I reviewed the patient's lab results. 04/13/23 10:12 04/13/23 10:12 Radiology Impressions Head MRI 04/13/23 10:05 IMPRESSION: 1. No acute intracranial abnormality identified. 2. Chronic microvascular ischemic disease. Chest X-Ray 04/13/23 10:29 IMPRESSION: No acute cardiopulmonary abnormality identified. Laboratory Results WBC 9.8 10^3/uL (4.0-10.0) 04/13/23 10:12 RBC 4.60 10^6/uL (4.1-5.3) 04/13/23 10:12 Hgb 13.4 g/dL (11.7-16.6) 04/13/23 10:12 Hct 40.9 % (42.0-52.0) L 04/13/23 10:12 MCV 88.9 fl (80-94) 04/13/23 10:12 MCH 29.1 pg (28.0-34.0) 04/13/23 10:12 MCHC 32.8 g/dL (30.0-36.0) 04/13/23 10:12 RDW 14.6 % (12.1-15.1) 04/13/23 10:12 Plt Count 170 10^3/cmm (130-400) 04/13/23 10:12 MPV 10.6 fL (7.4-10.4) H 04/13/23 10:12 Neut % (Auto) 86.6 % 04/13/23 10:12 Lymph % (Auto) 7.2 % 04/13/23 10:12 [place] % (Auto) 5.0 % 04/13/23 10:12 Eos % (Auto) 0.7 % 04/13/23 10:12 Baso % (Auto) 0.1 % 04/13/23 10:12 Neut # (Auto) 8.45 10^3/uL (1.8-7.7) H 04/13/23 10:12 Lymph # (Auto) 0.7 10^3/uL (0.8-4.8) L 04/13/23 10:12 [place] # (Auto) 0.5 10^3/uL (0.2-0.9) 04/13/23 10:12 Eos # (Auto) 0.1 10^3/uL (0.0-0.8) 04/13/23 10:12 Baso # (Auto) 0.0 10^3/uL (0.0-0.1) 04/13/23 10:12 Nucleated RBC % (auto) 0 % 04/13/23 10:12 Nucleated RBCs # 0.0 /100WBC 04/13/23 10:12 ESR 9 mm/hr (0-10) 04/13/23 10:12 PT 23.60 SECONDS (12.1-14.9) H 04/13/23 10:12 INR 2.02 (0.8-1.2) H 04/13/23 10:12 Sodium 141 mmol/L (136-145) 04/13/23 10:12 Potassium 4.4 mmol/L (3.5-5.1) 04/13/23 10:12 Chloride 100 mmol/L (98-107) 04/13/23 10:12 Carbon Dioxide 31 mmol/L (22-29) H 04/13/23 10:12 Anion Gap 14.4 (5-19) 04/13/23 10:12 BUN 15 mg/dL (8-23) 04/13/23 10:12 Creatinine 0.9 mg/dL (0.7-1.2) 04/13/23 10:12 GFR Calculation Not Reportable 04/13/23 10:12 Glucose 179 mg/dL (65-115) H 04/13/23 10:12 POC Glucose 185 mg/dL (70-110) H 04/13/23 09:41 Calculated Osmolality 297 mOsm/kg (285-295) H 04/13/23 10:12 Calcium 9.3 mg/dL (8.5-10.5) 04/13/23 10:12 Total Bilirubin 0.9 mg/dL (0.15-1.2) 04/13/23 10:12 AST 21 U/L (0-40) 04/13/23 10:12 ALT 24 U/L (0-41) 04/13/23 10:12 Alkaline Phosphatase 137 U/L (40-130) H 04/13/23 10:12 NT-Pro-B Natriuret Pep 431 pg/mL (0-450) 04/13/23 10:12 Total Protein 7.7 g/dL (6.6-8.7) 04/13/23 10:12 Albumin 4.6 g/dL (3.5-5.2) 04/13/23 10:12 Globulin 3.1 g/dL (1.3-4.6) 04/13/23 10:12 EKG Data EKG 1: I personally reviewed and interpreted this EKG as follows: Interpretation: Contemporaneous review of resting EKG reveals a ventricular rate of 78 bpm. Rhythm is consistent with atrial fibrillation. QRS duration is normal, corrected QT intervals normal. [place] of the R and T waves are normal. No acute ST-T wave changes noted. Discharge Plan Discharge Patient Disposition: Home Clinical Impression: Acute vestibular neuronitis Condition: Stable Prescriptions: New Valium 5 mg tablet 5 mg PO BID PRN (Reason: vertigo) Qty: 10 0RF No Action aspirin [Adult Low Dose Aspirin] 81 mg tablet,delayed release (DR/EC) 81 mg PO DAILY atorvastatin 40 mg tablet 40 mg PO DAILY multivitamin Tablet 1 tab PO DAILY furosemide 20 mg tablet 20 mg PO DAILY tamsulosin 0.4 mg capsule 0.4 mg PO BID clotrimazole-betamethasone 1-0.05 % cream 1 applic topical BID 28 Days Qty: 45 2RF Rx Instructions: Apply small amount to bottoms of both feet twice daily isosorbide mononitrate 30 mg tablet extended release 24 hr See Rx Instructions .ROUTE .COMPLEX Qty: 270 2RF Dose Instruction: TAKE 3 TABLETS BY MOUTH EVERY MORNING Rx Instructions: TAKE 60MG (2 TABS) PO QAM AND 30MG (1 TAB) AT BEDTIME diltiazem HCl 240 mg capsule,extended release 24 hr 240 mg PO DAILY Qty: 90 2RF carvedilol 25 mg tablet 25 mg PO BID Qty: 180 2RF losartan 50 mg tablet 50 mg PO DAILY Nitrostat 0.4 mg Tablet, Sublingual 0.4 mg SUBLINGUAL Q5M PRN (Reason: Chest Pain) Rx Instructions: do not exceed 3 doses per episode Fungi-Nail 25 % Solution 1 applic TOPICAL DAILY [place] Cinnamon 2400mg 2,400 mg PO BID warfarin 1 mg tablet See Rx Instructions .ROUTE .COMPLEX Protocol: Dose Management Condition: Friday Dose/Route: 6 mg Instruction: 1 x 1 mg tablet, 1 x 5 mg tablet Condition: Friday Dose/Route: 6 mg Instruction: 1 x 1 mg tablet, 1 x 5 mg tablet Condition: Friday Dose/Route: 7 mg Instruction: 2 x 1 mg tablets, 1 x 5 mg tablet Condition: Friday Dose/Route: 6 mg Instruction: 1 x 1 mg tablet, 1 x 5 mg tablet Condition: Dose/Route: 7 mg Instruction: 2 x 1 mg tablets, 1 x 5 mg tablet Condition: Friday Dose/Route: 6 mg Instruction: 1 x 1 mg tablet, 1 x 5 mg tablet Condition: Friday Dose/Route: 6 mg Instruction: 1 x 1 mg tablet, 1 x 5 mg tablet Protocol Text: Adjustment Start Date: Friday04/01/23 INR Value: 26.6 Seconds INR Date: 04/01/23 Recheck Date: 04/29/23 Rx Instructions: TAKE 6MG PO DAILY EXCEPT ON AND TAKE 7MG DAILY [facility] 40-10-5-3.3 mg Tablet 1 tab PO DAILY Discharge Orders: Discharge ED (Routine); Ordered 04/13/23 Ordered By: Winston Lantigua Referrals: Myles Ford DO [Primary Care Provider] - Discharge Diet: Usual diet Discharge Activity: Increase activity as tolerated Patient Instructions: Benign Paroxysmal Positional Vertigo (ED), Opioid Safety, Pain Management Activity Restrictions/Additional Instructions: As we discussed think your dizziness is related to a temporary inflammation or abnormality of your inner ear. The symptoms may come and go periodically over the next few days or weeks. If they are persistent, worsening or associated with other symptoms return to the emergency department immediately for reevaluation. We have provided a medication that you may use up to 2 times daily to help with your symptoms. We have also placed a consultation with case management to speed up your cardiology appointment for later this month. Coding Level of Care Code ED Adult Services Librarian for Jud Brand
[2023-04-13 10:25] LABS: Basophils % 0.1 %; Eosinophils # 0.1 10^3/uL (0.0-0.8); Eosinophils % 0.7 %; Hematocrit 40.9 % (42.0-52.0); Hemoglobin 13.4 g/dL (11.7-16.6); Lymphocytes # 0.7 10^3/uL (0.8-4.8); Lymphocytes % 7.2 %; Mean Corpuscular HGB Conc 32.8 g/dL (30.0-36.0); Mean Corpuscular Hemoglobin 29.1 pg (28.0-34.0); Mean Corpuscular Volume 88.9 fl (80-94); Mean Platelet Volume 10.6 fL (7.4-10.4); Monocytes # 0.5 10^3/uL (0.2-0.9); Neutrophils # 8.45 10^3/uL (1.8-7.7); Neutrophils % 86.6 %; Nucleated Red Blood Cells % 0 %; Platelet Count 170 10^3/cmm (130-400); Red Cell Distribution Width 14.6 % (12.1-15.1); White Blood Count 9.8 10^3/uL (4.0-10.0)
--- NOTE | 2023-04-13 10:29 | XRR_ITS ---
PROCEDURE INFORMATION: Exam: XR Chest Exam date and time: 04/13/2023 11:40 AM Age: 77 years old Clinical indication: Shortness of breath; Additional info: SOB TECHNIQUE: Imaging protocol: Radiologic exam of the chest. Views: 1 view. COMPARISON: 1. CT angio chest abdomen 11/08/2020 10:05 AM 2. CR XR chest 1V [id number] 04/29/2019 4:39 PM FINDINGS: Lungs: The lung parenchyma is clear. Pleural spaces: No pneumothorax. No pleural effusion. Heart/Mediastinum: The heart is enlarged for size, similar to prior exam. Postsurgical changes in the mediastinum. Prosthetic aortic valve poorly visualized. Bones/joints: Median sternotomy wires noted. XR/XR chest 1V portable [id number] IMPRESSION: No acute cardiopulmonary abnormality identified.
[2023-04-13 10:34] LABS: INR 2.02 (0.8-1.2)
[2023-04-13 10:45] LABS: Erythrocyte Sedimentation Rate 9 mm/hr (0-10)
[2023-04-13] MEDS: ondansetron 2 mg/ML SDV 2 mL 4 MG IVP (10:53)
[2023-04-13 10:54] LABS: Alanine Aminotransferase 24 U/L (0-41); Albumin Level 4.6 g/dL (3.5-5.2); Alkaline Phosphatase 137 U/L (40-130); Anion Gap 14.4 (5-19); Aspartate Amino Transferase 21 U/L (0-40); Blood Urea Nitrogen 15 mg/dL (8-23); Calcium 9.3 mg/dL (8.5-10.5); Carbon Dioxide 31 mmol/L (22-29); Chloride 100 mmol/L (98-107); Globulin 3.1 g/dL (1.3-4.6); Glucose 179 mg/dL (65-115); NT Pro B Type Natriuretic Pept 431 pg/mL (0-450); Osmolality Calculated 297 mOsm/kg (285-295); Potassium 4.4 mmol/L (3.5-5.1); Sodium 141 mmol/L (136-145); Total Bilirubin 0.9 mg/dL (0.15-1.2); Total Protein 7.7 g/dL (6.6-8.7)
[2023-04-13 10:55] VITALS: PULSE 79; RESP 15; O2SAT 94
[2023-04-13] MEDS: diazePAM 5 mg Tablet PO (10:55)
[2023-04-13 12:27] VITALS: BP 175/87; PULSE 80; O2SAT 95
--- NOTE | 2023-04-14 08:31 | DCPLANNER ---
Addendum entered by Batool Diamond 04/14/23 14:07: Patient has a follow up appointment scheduled for April at 2:[address] Woodson at [facility]. Original Note: software asset manager had message to schedule a follow up appointment for patient with cardiology. software asset manager sent patients information to the front office staff at [facility]. Patients information will be printed and reviewed. Clinic will call patient with appointment information.
== END 2023-04-13 12:28 | disposition home or self-care (01) ==
PROVIDERS: Emergency Provider Emergency Medicine; PCP Internal Medicine
DX: H81.20 Vestibular neuronitis, unspecified ear (principal)
CPT/HCPCS: 36416; 70551; 71045; 80053; 82962; 83880; 85025; 85610; 85651; 93005; 96374; 99285; J2405

== ENCOUNTER → 2023-04-15 10:59 | Outpatient (BNVA) | payer MEDICARE, OTHER, SELFPAY | PROVIDERS: PCP Internal Medicine; Visit Provider Internal Medicine Cardiovascular Disease | DX: R06.02 Shortness of breath (principal); I48.91 Unspecified atrial fibrillation; Z79.01 Long term (current) use of anticoagulants; Z79.82 Long term (current) use of aspirin; I10 Essential (primary) hypertension; I25.10 Atherosclerotic heart disease of native coronary artery without angina pectoris; Z95.1 Presence of aortocoronary bypass graft; Z95.2 Presence of prosthetic heart valve; Z87.891 Personal history of nicotine dependence | CPT/HCPCS: 99214 ==

== ENCOUNTER 2023-04-29 09:11 | Outpatient (CLI) | payer MEDICARE, OTHER, SELFPAY ==
--- NOTE | 2023-04-29 09:30 | USCV_ITS ---
Deacon Allred Age: 77 Gender: M : 1945 Exam Date: 04/29/2023 10:06 Ordering Phys: Sonia Woodson MD ([email or web address]) Technologist: OLIVER Exam Location: [facility] Indication: ERVIN, CAD, SOB BP: 146 / 90 HR: 69 Rhythm: Atrial fibrillation Technical Quality: Adequate MEASUREMENTS (Male / Female) Normal Values 2D ECHO LVOT Diameter 2.0 cm LV Ejection Fraction MOD 2C 53.3 % LV Ejection Fraction 2C AL 54.6 % LA Diameter 5.3 cm LA Width 4.1 cm LA Height 6.2 cm RA Width 4.3 cm RA Height 4.6 cm Aorta at Sinotubular Diameter 2.2 cm M-MODE Aortic Annulus Diameter 3.2 cm LA Ao Ratio MM 1.5 MV E Point Septal Separation 1.6 cm DOPPLER AV Peak Velocity 167.3 cm/s LVOT Peak Velocity 137.0 cm/s AV Area Cont Eq vti 2.6 cm squared AV Area Cont Eq pk 2.6 cm squared MV Peak Velocity 125.0 cm/s MV Area PHT 3.6 cm squared MV E' Velocity 62.5 cm/s Mitral E to MV E' Ratio 15.6 Mitral E to LV E' Lateral Ratio 12.4 Mitral E to LV E' Septal Ratio 21.0 TR Peak Velocity 189.0 cm/s TR Peak Gradient 14.3 mmHg TR Mean Velocity 135.0 cm/s TR Mean Gradient 8.5 mmHg TR Velocity Time Integral 47.8 cm TV Peak E Velocity 68.0 cm/s Right Atrial Pressure 8.0 mmHg Pulmonary Artery Systolic Pressu 22.3 mmHg PV Peak Velocity 85.0 cm/s RV Acceleration Time 0.1 s RV Ejection Time 0.3 s RV AcT/ET 0.4 FINDINGS Left Ventricle Normal left ventricular size, systolic function and moderately increased wall thickness. Left ventricular ejection fraction is estimated at 50-55 %. There is mild hypokinesis of basal to mid inferior, septal and apical anterior bhatti. Abnormal (paradoxical) septal motion consistent with postoperative status. Right Ventricle Normal right ventricular size and systolic function. Right ventricular systolic pressure 22.3 mmHg. Right Atrium Normal right atrial size. Left Atrium Moderately increased left atrial size. Mitral Valve Mild mitral annular calcification. Mildly thickened mitral valve. No mitral valve stenosis. Trace mitral valve regurgitation. Aortic Valve S/p transcatheter aortic valve replacement. Aortic valve peak velocity 1.7 m/s, mean gradient 7 mm Hg and aortic valve area 2.5 cm2. Mild aortic valve regurgitation. Tricuspid Valve Structurally normal tricuspid valve. Trace to mild tricuspid valve regurgitation. Pulmonic Valve Pulmonic valve not well visualized. No pulmonary valve stenosis. No significant pulmonary valve regurgitation. Pericardium No pericardial effusion. Aorta Normal size aortic root and proximal ascending aorta. IVC Inferior vena cava not visualized. CONCLUSIONS 1. Normal left ventricular size, systolic function and moderately increased wall thickness. Left ventricular ejection fraction is estimated at 50-55 %. There is mild hypokinesis of basal to mid inferior, septal and apical anterior bhatti. 2. S/p transcatheter aortic valve replacement. Aortic valve peak velocity 1.7 m/s, mean gradient 7 mm Hg and aortic valve area 2.5 cm2. Mild aortic valve regurgitation. 3. Trace to mild tricuspid valve regurgitation. 4. Direct comparison to previous study dated 11/02/2020, is not possible due to difficult study. Sonia Woodson MD (Electronically Signed) Final Date: 06 May 2023 17:25 S
[2023-04-29] MEDS: perflutren protein-a microsphr 0.22 mg/mL SDV 3 mL IV (10:31)
== END 2023-04-29 09:12 | disposition home or self-care (01) ==
LOC: RAD 09:13
PROVIDERS: PCP Internal Medicine; Visit Provider Internal Medicine Cardiovascular Disease
DX: I08.2 Rheumatic disorders of both aortic and tricuspid valves (principal); R06.09 Other forms of dyspnea; I25.10 Atherosclerotic heart disease of native coronary artery without angina pectoris
CPT/HCPCS: 85610; C8929; Q9956

== ENCOUNTER 2023-05-02 07:07 | Outpatient (CLI) | payer MEDICARE, OTHER, SELFPAY ==
--- NOTE | 2023-05-02 | ECG_ITS ---
[facility] Test Date: 2023-05-02 Pat Name: Deacon Allred Department: Room: Gender: Male Investor Relations Specialist: : 1945 Requested By: Sonia Woodson Order Number: [id number] Clemencia MD: Sonia Woodson M.D. Interpretive Statements NAME OF STUDY: LEXISCAN SESTAMIBI STRESS TEST INDICATION: Dyspnea on Exertion PROCEDURE: At the baseline, the blood pressure was 206/115 mmHg, oxygen saturation 92% with a heart rate of 84 bpm. The electrocardiogram showed atrial fibrillation, normal axis with ST depression in lead II, 3, aVF, V3 to V6. The Lexiscan was infused over a period of 20 seconds. A total of 0.4 milligrams of Lexiscan was infused. The stress phase was continued for a total of 5 minutes. Heart rate at the end of the stress phase was 95 bpm, oxygen saturation 96% with a blood pressure 193/113 mmHg. The EKG at the peak infusion revealed more pronounced ST depression in inferior and anterolateral leads. Sestamibi was injected 20 seconds after the Lexiscan infusion. Blood pressure at the end of the recovery phase was 184/110 mmHg, oxygen saturation 95% with a heart rate of 80 beats per minute. CONCLUSION: 1. Equivocal EKG response to LexiScan infusion given baseline ST-T wave changes. 2. No LexiScan induced chest pain or cardiac arrhythmia. 3. Normal blood pressure and heart rate response. 4. Sestamibi/sestamibi perfusion scan pending; see separate report. Electronically Signed On 05-06-2023 17:32:46 CDT by Sonia Woodson M.D. [id number]
[2023-05-02 07:22] VITALS: BMI 36.9
--- NOTE | 2023-05-02 07:23 | NMCV_ITS ---
NM goyo perf SPECT r/s* [id number] Deacon Allred Age: 77 Gender: M : 1945 Exam Date: 05/02/2023 08:10 Ordering Phys: Sonia Woodson MD ([email or web address]) Technologist: SANTI Taylor Exam Location: [facility] Indications: ATHEROSCLEROTIC HEART DISEASE, SHORTNESS OF BREATH STRESS TEST Please [facility] IMAGE PROTOCOL Rest/Stress 1 Lexiscan Day Radiopharmaceutical Dose (mCi) Administration Site Administered by Rest: Tc-99m 10.8 IV SANTI Barkley Sestamibi Stress:Tc-99m 33.0 IV SANTI Taylor Sestamibi Rest: 02-May-2023 60 Discovery 630 Stress: 02-May-2023 30 Discovery 630 0.4mg Lexiscan. Images obtained in supine and prone position. SPECT RESULTS Technical Quality: Excellent Raw Data Analysis: Normal Image Corrections: No attenuation or motion correction applied Summed Stress Score: 9 Summed Rest Score: 5 Summed Difference Score: 5 PERFUSION FINDINGS Small size perfusion abnormality of mild to moderate severity of basal inferior and basal to mid inferolateral bhatti on rest images with reversibility in basal to mid inferolateral and apical lateral mid to apical anterior bhatti on stress images. FUNCTIONAL RESULTS (calculated via Gated SPECT) Stress Image LV EF (%): 48 Stress EDV (mL):126 TID: 0.98 Stress ESV (mL):65 FUNCTIONAL FINDINGS: The left ventricle is normal in size. Transient Ischemia Dilatation of 0.98. The left ventricular ejection fraction is mildly reduced with a value of 48%. Moderate hypokinesis of basal to mid inferior and mid to apical anterior bhatti. Normal end-diastolic end-systolic volumes. IMPRESSIONS 1. Medium sized perfusion abnormality of mild to moderate severity of basal inferior and basal to mid inferolateral bhatti with reversibility in basal to mid inferolateral and apical lateral mid to apical anterior bhatti. 2. This may represent small area of ischemia in LAD artery territory with old myocardial infarction in diagonal/circumflex artery territory with mild hanna- infarct ischemia. 3. The left ventricular ejection fraction is mildly reduced with a value of 48%. 4. Moderate hypokinesis of basal to mid inferior and mid to apical anterior bhatti. 5. EKG portion of the study will be reported separately. Sonia Woodson MD (Electronically Signed) Final Date: 06 May 2023 17:52 S
[2023-05-02] MEDS: regadenoson 0.4 Mg/5 ml Syringe IVP (08:47)
[2023-05-02 09:03] VITALS: BP 184/110; PULSE 85
== END 2023-05-02 07:08 | disposition home or self-care (01) ==
LOC: CDL 07:09
PROVIDERS: PCP Internal Medicine; Visit Provider Internal Medicine Cardiovascular Disease
DX: R06.09 Other forms of dyspnea (principal); I25.10 Atherosclerotic heart disease of native coronary artery without angina pectoris; Z95.1 Presence of aortocoronary bypass graft
CPT/HCPCS: 36415; 78452; 93017; 96374; A9500; J2785

== ENCOUNTER → 2023-05-13 11:27 | Outpatient (BNVA) | payer MEDICARE, OTHER, SELFPAY | PROVIDERS: PCP Internal Medicine; Visit Provider Internal Medicine Cardiovascular Disease | DX: I48.91 Unspecified atrial fibrillation (principal) | CPT/HCPCS: 85610 ==

== ENCOUNTER → 2023-05-28 12:08 | Outpatient (BNVA) | payer MEDICARE, OTHER, SELFPAY | PROVIDERS: PCP Internal Medicine; Visit Provider Internal Medicine Cardiovascular Disease | DX: I48.91 Unspecified atrial fibrillation (principal); I35.0 Nonrheumatic aortic (valve) stenosis; Z01.812 Encounter for preprocedural laboratory examination | CPT/HCPCS: 36415; 80048; 85025; 85610 ==

== ENCOUNTER 2023-06-04 07:22 | Outpatient (CLI) | payer MEDICARE, OTHER, SELFPAY ==
[2023-06-04] VITALS (35 sets, daily range): BP systolic 127–169; BP diastolic 71–100; PULSE 62–105; RESP 6–26; TEMP 36.6–37.2; O2SAT 91–97; BMI 36.4
--- NOTE | 2023-06-04 07:30 | XACV_ITS ---
Exam Room: 2 Ht: 183 cm Wt: 122 kg BSA: 2.53 m2 Gender: Male : 1945 Any Known Allergies: No known allergies Exam Priority: Routine Procedure(s): Procedure Description: Diagnostic procedure Procedure Description: PCI procedure Procedure Description: Venous Graft Catheterization Procedure Description: PA Graft Catheterization Procedure Description: Drug Eluting Coronary Stent Procedure Description: PTCA Procedure Description: Coronary Angiography Diagnostic Cath Status: Elective Diagnostic Findings * The patient was scheduled for outpatient coronary angiography due to an abnormal stress test and chest discomfort. He has multiple vascular anomalies having had a TAVR, AAA repair among others. He is also had bypass surgery. Access was not achieved initially by the physician doing the procedure. I was able to place a sheath in the right common femoral artery. I was unable to advance the wire to the central aorta. Angiography of the lower extremity, specifically the iliac artery, revealed the distal limb of the AAA stent graft to be occluded on the right. I then switched to the left groin. Due to a significant amount of scar tissue in both groins from previous placement of the stent graft and previous TAVR and previous angiograms the access was nearly impossible. It took exchanges over multiple wires and multiple vessel dilators to place a sheath in the left common femoral artery. Additionally, it was difficult to place a wire through the AAA stent graft. Finally, after a lengthy period of time the wire was advanced into the central aorta. * Patient has 3 bypass grafts. There is a saphenous vein graft from the aorta to the marginal branch. It is difficult to tell which marginal branch since his yuhaaviatam's are largely occluded. There is an 80 to 90% discrete lesion at the insertion point from the graft to the yuhaaviatam artery. Otherwise, the graft contains mild to moderate diffuse disease. Tortuosity in the aorta as well as the left subclavian made it impossible to select the left internal mammary artery. Subselective angiography was done and reveals the internal mammary artery to the LAD is likely patent. The right coronary artery is grafted using a single vein graft to the distal right coronary artery prior to the bifurcation of the PDA and posterior left ventricular branch. Graft is essentially widely patent without any obstruction.. * The yuhaaviatam right coronary artery is a small artery and is occluded a couple centimeters into its course. There is a small marginal branch which emanates. There is no collateral flow. The left main coronary artery contains a 70% lesion in the ostium followed by a 80% napkin ring lesion more distally. The circumflex is obscured somewhat by the TAVR valve. It appears the grafted vessel is the first marginal branch. It is essentially occluded. There is some flow into the second marginal branch. This branch contains a 90% stenosis in the proximal portion. There is also disease of the ostial circumflex but it is obscured and difficult to see. The left anterior descending is occluded in the midportion past the first diagonal and first septal branch. Distal flow is via the GERSON graft.. PCI Status: Elective PCI LVEF Assessed: No PCI Indication: NSTE - ACS Interventional Findings * The only new finding on today's angiogram from previously is the lesion in the distal circumflex graft. This lesion is at the insertion point. It is at a 90 degree angle with the yuhaaviatam vessel. A wire was easily placed through the lesion and into the yuhaaviatam vessel. A stent would not pass due to the acute angle. Balloon angioplasty was performed of the lesion which revealed a reasonable result. After the angioplasty I made another attempt to pass a stent which was simply impossible due to the 90 degree angle. Decision for PCI with Surgical Consult: No PCI for Multi-vessel Disease: No Conclusions 1. Patent coronary bypass grafts with significant lesion in the distal circumflex graft. Angioplasty without stenting of the distal circumflex graft. Severe three-vessel yuhaaviatam disease with all 3 yuhaaviatam coronary arteries occluded. Recommendations * Medical therapy. Interventional RX Recommendation: PCI w/o planned CABG Diagnostic RX Recommendation: PCI w/o planned CABG Anticoagulation: Heparin Pressures Phase:Rest AO : 102 / 74 ( 86 ) @ 11:45:00 AM 116 / 63 ( 85 ) @ 11:57:00 AM 102 / 66 ( 83 ) @ 12:04:00 PM 105 / 60 ( 81 ) @ 12:07:00 PM 94 / 62 ( 72 ) @ 12:10:00 PM 121 / 58 ( 83 ) @ 12:15:00 PM 108 / 56 ( 77 ) @ 12:19:00 PM 119 / 62 ( 87 ) @ 12:27:00 PM Clinical Evaluation EBL: 5mL-10mL Procedural Details Pre-Procedure Time Out. Identified patient by full name and date of as verbalized by the patient/guarantor. Does the consent match the physician's order: Yes. Accurate & Complete Informed Consent: Yes. Inpatient/Outpatient History & Physical on Chart: Yes. If H&P is completed, is and addenduem needed: No; If yes, is the addendum complete: N/A. Visualize and Verify Site with Patient/Guarantor: N/A. Relevant Radiology Images available: Yes. Pre-op teaching completed and patient verbalized understanding. The risks, benefits, and alternatives of sedation and/or procedure were discussed by physician. The patient agrees to continue. Procedure started. [facility] Clinical Fraility Score: 3: Managing Well. Physician arrived. Barrel Brander Indications: Worsening Angina. Chest Pain Symptom Assessment: Atypical Angina. Correct patient, site and procedure confirmed by cath team. Current diagnosis: Chest Pain. PERRLA. Strong, equal hand occ therapist bilaterally. Lungs clear x 5 lobes. IV Site on Arrival: 20 gauge in the right anticubital. IV Fluids: 0.9% NaCl at KVO. 0 mL infused prior to medical laboratory specialist. Pre Procedural Pulses: bilateral dorsalis pedis was 3+. Pre Procedural Pulses: bilateral posterior tibial was 3+. Pre Procedural Pulses: bilateral radial was 3+. Oxygen started at 2liters/min via nasal canula. bilateral groins was prepped with chloroprep then draped in the usual sterile fashion. Baseline sample Acquired. HR: 76 BPM. Physician scrubbed in. Immediate Pre-Procedure Time Out. Correct Patient: Yes; Correct Procedure: Yes; Correct Site: Yes; Correct Patient Position: Yes; Correct Supplies: Yes; Dried Flammable Prep: Yes; Blood Products Available: N/A;. Lidocaine 1% infiltrated to the right groin. Current Diagnosis : Chest Pain. Arterial access obtained with micropuncture set. Wire unable to advance. Wire and needle removed. Arterial access obtained with micropuncture set. The 6Fr glidesheath was unable to advance. Wire and sheath removed. Manual pressure applied to access site. Lidocaine 1% infiltrated to the left groin. Arterial access obtained with micropuncture set. The regular sheath was exchanged for a glidesheath. Glidesheath unable to advance. 6FR [place] sheath inserted OTW. Sheath unable to advance. Wire and sheath removed OTW. Manual pressure applied to access site. Patient's family updated. Arterial access obtained with micropuncture set. Wire unable to advance. Wire and needle out. Manual pressure applied to access site. Arterial access obtained with micropuncture set. Wire unable to advance. Wire and needle out. Manual pressure applied to access site. Patient's family updated. Dr. Woodson scrubbed out. Waiting on Dr. Cerrato for assistance. Dr. Cerrato arrived. Dr. Cerrato scrubbed in. Lidocaine 1% infiltrated to the right groin. Arterial access obtained. glidewire inserted through the access needle. A 5 belizean JR4 catheter in over wire. Wire out. A Right femoral angiogram was performed. Standard wire inserted through the catheter. Family updated by Dr. Woodson. wire and catheter out. Lidocaine 1% infiltrated to the left groin. Arterial access obtained. The 6Fr dilator inserted OTW. Dilator out OTW. 6Fr glidesheath inserted OTW. Glidesheath unable to advance. Removed OTW. Microdilator inserted OTW. Sheath wire removed. Amplatz Extra Stiff wire inserted through the dilator. Amplatz wire out. Sheath wire inserted. A 5 belizean JR4 catheter in over glidewire. SVG's to OM visualized and patent. Exchange wire inserted. Wire out. Exchange wire inserted. A 6 belizean IM catheter in over wire. Exchange wire inserted. PA to LAD visualized. Catheter removed over the exchange wire. A 6 belizean MPA1 catheter in over wire. SVG's to RCA visualized and patent. Catheter removed over the exchange wire. A 5 belizean JR4 catheter in over wire. Multiple views taken of right coronary artery. Catheter removed over the exchange wire. A 5 belizean JL4 catheter in over wire. Multiple views taken of left coronary artery. Catheter removed over the exchange wire. 6 belizean JR 4 guide catheter was inserted over the wire. Guide catheter out. 6 belizean LCB guide catheter was inserted over the wire. Excel guidewire was advanced through the guide catheter to lesion in the OM SVG. 3.5x8 [place] Stent inserted to lesion in the SVG to the OM. Intact stent out OTW. Inflation number : 1 A AB TREK 3.50X8 RX BALLOON was prepped and advanced across the Aorta Left -> 1st Ob Amber , then inflated to 8 DUANE for 0:10 seconds. Inflation number: 2 The AB TREK 3.50X8 RX BALLOON was reinflated across the Aorta Left -> 1st Ob Amber, to 8 DUANE for 0:10 seconds. Inflation number: 3 The AB TREK 3.50X8 RX BALLOON was reinflated across the Aorta Left -> 1st Ob Amber, to 8 DUANE for 0:10 seconds. Inflation number: 4 The AB TREK 3.50X8 RX BALLOON was reinflated across the Aorta Left -> 1st Ob Amber, to 8 DUANE for 0:30 seconds. Balloon out. Results checked. 3.5x8 [place] Stent inserted to lesion in the SVG to the OM. Intact stent out OTW. Wire out. Guide catheter out. A Suture was successful obtaining hemostatsis at the Left Femoral artery insertion site. Arterial sheath flushed and connected to tranducer and pressure bag with heparinized saline. Post Procedure: Pulses reassessed and unchanged. PERRLA. Strong, equal hand occ therapist bilaterally. No VTE prophylaxis required. Vital chart was stopped. Medication's Wasted: Lidocaine 1% = 4 mL. Medication's Wasted: Other = Fentanyl 50mcg Versed 1 mg. Total IV fluids: 237 mL. Post-op diagnosis: CAD. Complications: None. Estimated blood loss: 5mL-10mL. Responsiveness - Normal response to verbal stimuli; alert and oriented, PERRLA. Airway - Unaffected, no intervention required; spontaneous ventilation. Circulation: W/N/L, pulses unchanged. Nausea/Vomiting: No. Procedure completed. Patient transferred by bed to 1st floor. Access Site Site: Right Femoral artery Sheath Size: 6 Fr Hemostasis Success: Unsuccessful Site: Left Femoral artery Sheath Size: 6 Fr Hemostasis Success: Unsuccessful Site: Right Femoral artery Sheath Size: 6 Fr Hemostasis Success: Unsuccessful Site: Left Femoral artery Sheath Size: 6 Fr Hemostasis Method: Suture Hemostasis Success: Successful Procedure Medications Start: 8:32 AM Stop: 8:32 AM Medication: Aspirin Amount: 243 mg Route: P.O. Start: 8:32 AM Stop: 8:32 AM Medication: Versed Amount: 1 mg Route: I.V. Start: 8:32 AM Stop: 8:32 AM Medication: Fentanyl Amount: 50 mcg Route: I.V. Start: 8:41 AM Stop: 8:41 AM Medication: Versed Amount: 1 mg Route: I.V. Start: 8:41 AM Stop: 8:41 AM Medication: Fentanyl Amount: 50 mcg Route: I.V. Start: 9:59 AM Stop: 9:59 AM Medication: Fentanyl Amount: 25 mcg Route: I.V. Start: 10:10 AM Stop: 10:10 AM Medication: Versed 1 mg and Fentanyl 25 mcg Amount: 1 Route: I.V. Start: 11:04 AM Stop: 11:04 AM Medication: Heparin Amount: 5000 units Route: I.V. I, the attending physician, have reviewed and verified all procedure medications. Yes, all medications given per verbal order History/Risk Factors Hypertension: No Dyslipidemia: Yes Peripheral Arterial Disease (PAD): No Myocardial Infarction (NE): No Obesity: No Renal Disease: No Tobacco Use: Former Prior Interventions PCI: No CABG: Yes Valve Surgery: No Report Signatures Finalized by Dr. Barrett Cerrato MD on 06/04/2023 03:17 PM
[2023-06-04] MEDS: diphenhydrAMINE 50 mg Capsule PO (07:50)
--- NOTE | 2023-06-04 08:24 | P.HP_ITS ---
Same Day Surgery H&P Indication for Procedure/HPI DATE OF PROCEDURE: June 04, 2023 CHIEF COMPLAINT/INDICATIONFOR SURGICAL PROCEDURE: Worsening exertional SOB, abnormal stress test PREOP DIAGNOSIS: Worsening exertional SOB, abnormal stress test PLANNED PROCEDURE: Operation Date: 06/04/23 08:30 Proposed Procedures p [facility] w/ -w/o 00424,R94.39,R06.02(Left) - Sonia Woodson MD 78 yo man with PMhx of CAD s/p CABG x 4 in 1998 for abnormal stress test,? HTN, infrarenal aortic aneurysm s/p percutaneous endocvascular stent placement by Dr. Miller in January,, chronic atrial fibrillation on coumadin and severe aortic stenosis. He is s/p TAVR on 08/05/2019. He had stress test recently that showed mostly lateral wall ischemia. His echo showed normally functioning bioprosthetic AV. He tells me his exertional SOB is worsening. No chest pains. Medications/Allergies* Home Medications Medication Instructions Recorded Confirmed Type aspirin 81 mg tablet,delayed 81 mg PO DAILY 08/26/19 06/03/23 History release (Adult Low Dose Aspirin) atorvastatin 40 mg tablet 40 mg PO DAILY 08/26/19 06/03/23 History multivitamin 1 tab PO DAILY 08/26/19 06/04/23 History furosemide 20 mg tablet 20 mg PO DAILY 11/09/19 06/03/23 History tamsulosin 0.4 mg capsule 0.4 mg PO BID 04/25/20 06/03/23 History [place] Cinnamon 2400mg 2,400 mg PO BID 04/13/23 06/03/23 History cartilage 40 mg-collagen II 10 1 tab PO DAILY 04/13/23 06/03/23 History mg-boron 5 mg-hyaluronate 3.3 mg tablet ([facility]) losartan 50 mg tablet 50 mg PO DAILY 04/13/23 06/03/23 History warfarin 1 mg tablet See Rx Instructions .Route .COMPLEX 04/13/23 06/03/23 Histo ry Allergies/Adverse Reactions Allergy/AdvReac Type Severity Reaction Status Date / Time No Known Allergies Allergy Verified 06/04/23 07:52 Current Medications: Generic Name Dose Route Start Last Admin Trade Name Freq PRN Reason Stop Dose Admin Sodium Chloride 1,000 mls @ 50 mls/hr 06/04/23 07:30 06/04/23 08:11 Sodium Chloride 0.9% IV 06/05/23 03:29 Not Given .Q20H ONE Pertinent History/Comorbid Conditions* Medical History (Updated 04/22/23 @ 16:45 by Sonia Woodson MD) Aortic stenosis Atrial fibrillation BPH loc w urin obs/LUTS CAD (coronary artery disease) History of stomach ulcers SURGERY Hyperlipidemia LDL goal <70 Prostate cancer Surgical History (Updated 07/24/20 @ 08:53 by Paul Marrero MD) H/O abdominal aortic aneurysm repair H/O cataract extraction H/O endovascular stent graft for abdominal aortic aneurysm H/O left knee surgery H/O left wrist surgery H/O shoulder surgery RIGHT History of surgery of liver Hx of cholecystectomy S/P appendectomy S/P CABG x 4 S/P TAVR (transcatheter aortic valve replacement) Family History (Updated 11/08/19 @ 15:24 by Larisa Ramirez LPN) Father, AT AGE 79 Mother, AT AGE 26 MVA Cancer Grandfather Paternal, lung Asthma Father Social History Smoking and tobacco status: former smoker Quit status (tobacco): has quit using tobacco Year quit tobacco: 1976 Alcohol intake: never Substance/Drug Use: unknown Adopted: No Caregiver/support person: No Lives independently: No Household members: spouse Marital status: Current occupational status: retired Current gender identity: Male Pertinent Exam Findings alert, oriented x 3, clear to auscultation bilaterally and rate & rhythm not regular (irregular rate and rhythm) Conscious Sedation Assessment PATIENT ASSESSED PRIOR TO SEDATION, WITH NO CHANGE NOTED: Yes AIRWAY EVAL/ANESTHESIA PLAN: normal airway, ASA III, Monitored Anesthesia, Local Anesthesia, Risks, benefits & alternatives of sedation and/or procedure discussed and Patient agrees to continue as planned Recommendations Surgery/Procedure today Coding Level of Care Code Acute Code for Chg Fwd Diagnoses
[2023-06-04] MEDS: sodium chloride 0.9% 1,000 ML 100 ML IV ×2 (12:00→20:42)
[2023-06-04 14:19] LABS: Partial Thromboplastin Time 35.4 SECONDS (23.9-36.7)
[2023-06-04] MEDS: isosorbide mononitrate ER 30 mg Tablet PO (17:57)
[2023-06-04] MEDS: carvedilol 25 mg Tablet PO (17:57)
[2023-06-05] VITALS: BP 181/108; PULSE 103; RESP 24; TEMP 37; O2SAT 96
[2023-06-05 04:00] VITALS: BP 155/100; PULSE 88; RESP 26; TEMP 37.1; O2SAT 94
[2023-06-05 06:00] VITALS: PULSE 87
[2023-06-05 08:06] LABS: Basophils % 0.3 %; Eosinophils # 0.1 10^3/uL (0.0-0.8); Eosinophils % 1.5 %; Hematocrit 40.4 % (37-53); Lymphocytes # 0.9 10^3/uL (0.8-4.8); Lymphocytes % 10.8 %; Mean Corpuscular HGB Conc 32.2 g/dL (30-55); Mean Corpuscular Hemoglobin 28.8 pg (27-33); Mean Corpuscular Volume 89.6 fl (82-101); Mean Platelet Volume 10.7 fL (7.4-10.4); Monocytes # 0.7 10^3/uL (0.2-0.9); Monocytes % 8.5 %; Neutrophils # 6.26 10^3/uL (1.8-7.7); Neutrophils % 78.6 %; Nucleated Red Blood Cells % 0 %; Platelet Count 142 10^3/cmm (157-399); Red Blood Count 4.51 10^6/uL (3.85-5.65); Red Cell Distribution Width 14.1 % (12.1-15.1); White Blood Count 7.96 10^3/uL (3.29-11.43)
[2023-06-05 08:37] VITALS: BP 157/84; PULSE 89; RESP 14; TEMP 36.6; O2SAT 92
[2023-06-05 08:47] LABS: Blood Urea Nitrogen 11 mg/dL (8-23); Carbon Dioxide 26 mmol/L (22-29); Chloride 100 mmol/L (98-107); Glucose 161 mg/dL (65-115); Osmolality Calculated 285 mOsm/kg (285-295); Sodium 136 mmol/L (136-145)
[2023-06-05 09:01] VITALS: BP 157/84
[2023-06-05] MEDS: losartan 50 mg Tablet PO (09:01)
[2023-06-05] MEDS: isosorbide mononitrate ER 30 mg Tablet PO (09:01)
[2023-06-05] MEDS: aspirin 81 mg EC Tablet PO (09:01)
[2023-06-05] MEDS: atorvastatin 40 mg Tablet PO (09:01)
[2023-06-05] MEDS: dilTIAZem ER (24HR) 300 mg Capsule PO (09:01)
[2023-06-05] MEDS: FUROsemide 20 mg Tablet PO (09:01)
[2023-06-05] MEDS: carvedilol 25 mg Tablet PO (09:01)
[2023-06-05] MEDS: warfarin 1 mg Tablet PO (10:20)
[2023-06-05] MEDS: warfarin 6 mg Tablet PO (10:20)
--- NOTE | 2023-06-05 11:03 | PC.NURSE ---
Discharge Note Patient discharged to [home] via [w/c to POV] accompanied by [spouse]. Discharge instructions reviewed with patient and/or traveling sales representative. Mobile pharmacy medications and/or prescriptions provided. Belongings/home medications returned.
--- NOTE | 2023-06-05 13:45 | PM.DCS ---
Discharge Providers Date of Admission: Jun 04, 2023 Date of Discharge: June 05, 2023 Attending Provider at Discharge: Sonia Woodson MD Primary Care Provider: Myles Ford DO Reason for Visit Reason for Visit: R94.39 Brief History: Elective LHC for abnormal stress test and worsening chest pain Hospital Course Hospital Course 78 yo man with PMhx of CAD s/p CABG x 3 in 1998 for abnormal stress test,? HTN, infrarenal aortic aneurysm s/p percutaneous endocvascular stent placement by Dr. Miller in January,, chronic atrial fibrillation on coumadin and severe aortic stenosis. He is s/p TAVR on 08/05/2019. He had stress test recently that showed mostly nas-lateral wall ischemia. His echo showed normally functioning bioprosthetic AV. He tells me his exertional SOB is worsening. No chest pains.He underwent LHC with very difficult access and underwent balloon angioplasty of SVG to OM. He did well overnight and was discharged home on stable state. No medication changes were made. Physical Exam Const: COMMON NORMALS: no acute distress, patient oriented x3 and alert GENERAL APPEARANCE: cooperative, comfortable, well kempt and well hydrated HENMT: COMMON NORMALS: hearing grossly normal bilaterally and external ears normal FACE & SINUS: normal facial exam EXTERNAL EAR: Yes external ears normal Eye: COMMON NORMALS: EOMs intact bilaterally and no scleral icterus GENERAL EYE: appearance normal, both eyes and all related structures ALIGNMENT: Yes alignment normal Neck/C-Spine: COMMON NORMALS: no lymphadenopathy, supple and no JVD GENERAL: Yes normal visual inspection CAROTIDS: Yes normal carotid upstroke Chest: COMMONS NORMALS: normal inspection of the chest and normal palpation of entire chest wall CHEST: Yes Symmetrical chest wall rise and No tenderness Resp: COMMON NORMALS: clear to auscultation bilaterally AUSCULTATION: clear to auscultation bilaterally, no crackles, no rales, no rhonchi and no wheezes Cardio: COMMON NORMALS: no JVD, regular rate, S1 normal heart sound present, S2 normal heart sound present and Peripheral pulses 2+ throughout; negative for regular rhythm (irregularly irregular) PALPATION: normal PMI RATE: regular rate RHYTHM: abnormal rhythm (irregularly irregular) HEART SOUNDS: S1 normal heart sound present, S2 normal heart sound present, no gallops and no murmurs BRUITS: no carotid bruits PERIPHERAL PULSES: Peripheral pulses 2+ throughout, radial pulses present, posterior tibial pulses present and dorsalis pedis present GI: COMMON NORMALS: Soft to palpation AUSCULTATION: Yes normoactive bowel sounds PALPATION: Yes Soft to palpation, No Tenderness to palpation present (GI), No Guarding due to palpation present (GI) and No Rigid due to palpation PERCUSSION: tympanic to percussion Extremity: NARRATIVE EXTREMITY EXAM: B/L groin with no significant bruising or hematoma. 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 Routine Exams 06/04/23 07:30 Completed Laboratory Results WBC 7.96 10^3/uL (3.29-11.43) 06/05/23 07:59 RBC 4.51 10^6/uL (3.85-5.65) 06/05/23 07:59 Hgb 13.00 g/dL (11.27-16.99) 06/05/23 07:59 Hct 40.4 % (37-53) 06/05/23 07:59 MCV 89.6 fl (82-101) 06/05/23 07:59 MCH 28.8 pg (27-33) 06/05/23 07:59 MCHC 32.2 g/dL (30-55) 06/05/23 07:59 RDW 14.1 % (12.1-15.1) 06/05/23 07:59 Plt Count 142 10^3/cmm (157-399) L 06/05/23 07:59 MPV 10.7 fL (7.4-10.4) H 06/05/23 07:59 Neut % (Auto) 78.6 % 06/05/23 07:59 Lymph % (Auto) 10.8 % 06/05/23 07:59 [place] % (Auto) 8.5 % 06/05/23 07:59 Eos % (Auto) 1.5 % 06/05/23 07:59 Baso % (Auto) 0.3 % 06/05/23 07:59 Neut # (Auto) 6.26 10^3/uL (1.8-7.7) 06/05/23 07:59 Lymph # (Auto) 0.9 10^3/uL (0.8-4.8) 06/05/23 07:59 [place] # (Auto) 0.7 10^3/uL (0.2-0.9) 06/05/23 07:59 Eos # (Auto) 0.1 10^3/uL (0.0-0.8) 06/05/23 07:59 Baso # (Auto) 0.0 10^3/uL (0.0-0.1) 06/05/23 07:59 Nucleated RBC % (auto) 0 % 06/05/23 07:59 Nucleated RBCs # 0.0 /100WBC 06/05/23 07:59 APTT 35.4 SECONDS (23.9-36.7) 06/04/23 13:53 Sodium 136 mmol/L (136-145) 06/05/23 07:59 Potassium 4.0 mmol/L (3.5-5.1) 06/05/23 07:59 Chloride 100 mmol/L (98-107) 06/05/23 07:59 Carbon Dioxide 26 mmol/L (22-29) 06/05/23 07:59 Anion Gap 14.0 (5-19) 06/05/23 07:59 BUN 11 mg/dL (8-23) 06/05/23 07:59 Creatinine 0.8 mg/dL (0.7-1.2) 06/05/23 07:59 GFR Calculation Not Reportable 06/05/23 07:59 Glucose 161 mg/dL (65-115) H 06/05/23 07:59 Calculated Osmolality 285 mOsm/kg (285-295) 06/05/23 07:59 Calcium 9.0 mg/dL (8.5-10.5) 06/05/23 07:59 Procedures Performed [facility] (06/04/23) Diagnostic Cath Status: ? ? Elective Diagnostic Findings ? * The patient was scheduled for outpatient coronary angiography due to an abnormal stress test and chest discomfort.? He has multiple vascular anomalies having had a TAVR, AAA repair among others.? He is also had bypass surgery. Access was not achieved initially by the physician doing the procedure.? I was able to place a sheath in the right common femoral artery.? I was unable to advance the wire to the central aorta.? Angiography of the lower extremity, specifically the iliac artery, revealed the distal limb of the AAA stent graft to be occluded on the right.? I then switched to the left groin.? Due to a significant amount of scar tissue in both groins from previous placement of the stent graft and previous TAVR and previous angiograms the access was nearly impossible.? It took exchanges over multiple wires and multiple vessel dilators to place a sheath in the left common femoral artery.? Additionally, it was difficult to place a wire through the AAA stent graft.? Finally, after a lengthy period of time the wire was advanced into the central aorta. ? * Patient has 3 bypass grafts.? There is a saphenous vein graft from the aorta to the marginal branch.? It is difficult to tell which marginal branch since his burns paiute's are largely occluded.? There is an 80 to 90% discrete lesion at the insertion point from the graft to the burns [place] artery.? Otherwise, the graft contains mild to moderate diffuse disease.? Tortuosity in the aorta as well as the left subclavian made it impossible to select the left internal mammary artery. Subselective angiography was done and reveals the internal mammary artery to the LAD is likely patent. The right coronary artery is grafted using a single vein graft to the distal right coronary artery prior to the bifurcation of the PDA and posterior left ventricular branch. Graft is essentially widely patent without any obstruction.. ? * The burns [place] right coronary artery is a small artery and is occluded a couple centimeters into its course.? There is a small marginal branch which emanates.? There is no collateral flow.? The left main coronary artery contains a 70% lesion in the ostium followed by a 80% napkin ring lesion more distally. The circumflex is obscured somewhat by the TAVR valve. It appears the grafted vessel is the first marginal branch. It is essentially occluded. There is some flow into the second marginal branch. This branch contains a 90% stenosis in the proximal portion. There is also disease of the ostial circumflex but it is obscured and difficult to see.? The left anterior descending is occluded in the midportion past the first diagonal and first septal branch. Distal flow is via the GERSON graft.. Vitals Last Vital Signs Temp 97.9 F 06/05/23 08:37 Pulse 89 06/05/23 08:37 Resp 14 06/05/23 08:37 BP 157/84 06/05/23 09:01 Pulse Ox 92 06/05/23 08:37 O2 Del Method Room Air 06/05/23 04:00 Discharge Plan Discharge Patient Disposition: Home Prescriptions: Continued aspirin [Adult Low Dose Aspirin] 81 mg tablet,delayed release (DR/EC) 81 mg PO DAILY atorvastatin 40 mg tablet 40 mg PO DAILY multivitamin Tablet 1 tab PO DAILY furosemide 20 mg tablet 20 mg PO DAILY tamsulosin 0.4 mg capsule 0.4 mg PO BID diltiazem HCl 300 mg capsule,extended release 24hr 300 mg PO DAILY Qty: 90 1RF isosorbide mononitrate 30 mg tablet extended release 24 hr 30 mg PO BID Qty: 180 2RF Rx Instructions: 30 mg orally twice a day; carvedilol 25 mg tablet 25 mg PO BID Qty: 180 2RF Nitrostat 0.4 mg tablet, sublingual 0.4 mg SUBLINGUAL Q5M PRN (Reason: Chest Pain) Qty: 25 3RF Rx Instructions: do not exceed 3 doses per episode losartan 50 mg tablet 50 mg PO DAILY [place] Cinnamon 2400mg 2,400 mg PO BID warfarin 1 mg tablet See Rx Instructions .ROUTE .COMPLEX Protocol: Dose Management Condition: Friday Dose/Route: 0 mg Instruction: 0 tablets Condition: Friday Dose/Route: 0 mg Instruction: 0 tablets Condition: Friday Dose/Route: 0 mg Instruction: 0 tablets Condition: Friday Dose/Route: 6 mg Instruction: 6 x 1 mg tablets Condition: Dose/Route: 7 mg Instruction: 7 x 1 mg tablets Condition: Friday Dose/Route: 6 mg Instruction: 6 x 1 mg tablets Condition: Friday Dose/Route: 0 mg Instruction: 0 tablets Protocol Text: Adjustment Start Date: Friday05/28/23 INR Value: Pending INR Date: 05/28/23 Rx Instructions: TAKE 6MG PO DAILY EXCEPT ON AND TAKE 7MG DAILY [facility] 40-10-5-3.3 mg Tablet 1 tab PO DAILY diazepam [Valium] 5 mg tablet 5 mg PO BID PRN (Reason: vertigo) Qty: 10 0RF Discharge Orders: Discharge Order (Routine); Ordered 06/05/23 Ordered By: Sonia Woodson Referrals: Larisa Duran FNP [Nurse Practitioner] - 06/11/23 11:00 am Sonia Woodson MD [Physician] - 2 months (Your Dr. Woodson follow up appointment will be scheduled during your Larisa Duran appointment. Thank you.) Diet: Cardiac Activity: Limit activity as instructed Patient Instructions: Coronary Angioplasty (DC), Post Angiogram Home Care Instructions Activity Restrictions/Additional Instructions: Do not lift anything more than 5 lbs for 1 week. Keep the site dry and clean Take medications as prescribed and follow up as scheduled. Discharge Date/Time: 06/05/23 10:30 Discharge Attestations Time Spent in Discharge Care*: greater than 30 min Quality Metrics Clinical Quality Measures [ No reported AMI, CVA or VTE this stay] Coding Level of Care Code Acute Code for Chg Fwd Diagnoses
== END 2023-06-05 10:30 | disposition home or self-care (01) ==
LOC: CCL 07:23 → CSU 12:00
PROVIDERS: Internal Medicine Cardiovascular Disease; PCP Internal Medicine; Visit Provider Internal Medicine Cardiovascular Disease
DX: I25.10 Atherosclerotic heart disease of native coronary artery without angina pectoris (principal); Z95.1 Presence of aortocoronary bypass graft; I10 Essential (primary) hypertension; I48.20 Chronic atrial fibrillation, unspecified; Z79.82 Long term (current) use of aspirin; Z79.01 Long term (current) use of anticoagulants; N40.1 Benign prostatic hyperplasia with lower urinary tract symptoms; N13.8 Other obstructive and reflux uropathy; E78.5 Hyperlipidemia, unspecified; Z85.46 Personal history of malignant neoplasm of prostate; Z87.891 Personal history of nicotine dependence
CPT/HCPCS: 36415; 80048; 85025; 85730; 92920; 93455; 96361; 96365; 96367; 99152; 99153; C1725; C1769; C1874; C1887; C1894; J1644; J2250; J3010; J7030; Q0163; Q9967

== ENCOUNTER → 2023-06-11 12:00 | Outpatient (BNVA) | payer MEDICARE, OTHER, SELFPAY | PROVIDERS: PCP Internal Medicine; Visit Provider Nurse Practitioner Family | DX: I25.10 Atherosclerotic heart disease of native coronary artery without angina pectoris (principal) | CPT/HCPCS: 36415; 80048; 85610; 99214 ==

== ENCOUNTER → 2023-06-18 11:14 | Outpatient (BNVA) | payer MEDICARE, OTHER, SELFPAY | PROVIDERS: PCP Internal Medicine; Visit Provider Internal Medicine Cardiovascular Disease | DX: I48.91 Unspecified atrial fibrillation (principal) | CPT/HCPCS: 85610 ==

== ENCOUNTER → 2023-06-25 10:38 | Outpatient (BNVA) | payer MEDICARE, OTHER, SELFPAY | PROVIDERS: PCP Internal Medicine; Visit Provider Internal Medicine Cardiovascular Disease | DX: I48.91 Unspecified atrial fibrillation (principal) | CPT/HCPCS: 85610 ==

== ENCOUNTER → 2023-07-23 11:21 | Outpatient (BNVA) | payer MEDICARE, OTHER, SELFPAY | PROVIDERS: PCP Internal Medicine; Visit Provider Internal Medicine Cardiovascular Disease | DX: I48.91 Unspecified atrial fibrillation (principal) | CPT/HCPCS: 85610 ==

== ENCOUNTER → 2023-08-04 12:47 | Outpatient (BNVA) | payer MEDICARE, OTHER, SELFPAY | PROVIDERS: PCP Internal Medicine; Visit Provider Internal Medicine Cardiovascular Disease | DX: R06.02 Shortness of breath (principal); I25.10 Atherosclerotic heart disease of native coronary artery without angina pectoris; I48.91 Unspecified atrial fibrillation; I10 Essential (primary) hypertension; E78.5 Hyperlipidemia, unspecified; N40.1 Benign prostatic hyperplasia with lower urinary tract symptoms; Z95.1 Presence of aortocoronary bypass graft; Z98.890 Other specified postprocedural states; Z95.2 Presence of prosthetic heart valve; Z95.828 Presence of other vascular implants and grafts; Z87.891 Personal history of nicotine dependence; Z79.01 Long term (current) use of anticoagulants | CPT/HCPCS: 99214 ==

== ENCOUNTER → 2023-08-28 10:34 | Outpatient (BNVA) | payer MEDICARE, OTHER, SELFPAY | PROVIDERS: PCP Internal Medicine; Visit Provider Internal Medicine Cardiovascular Disease | DX: I25.10 Atherosclerotic heart disease of native coronary artery without angina pectoris (principal); I48.91 Unspecified atrial fibrillation | CPT/HCPCS: 85610 ==

== ENCOUNTER → 2023-09-25 13:24 | Outpatient (BNVA) | payer MEDICARE, OTHER, SELFPAY | PROVIDERS: PCP Internal Medicine; Visit Provider Internal Medicine Cardiovascular Disease | DX: I25.10 Atherosclerotic heart disease of native coronary artery without angina pectoris (principal); Z95.2 Presence of prosthetic heart valve | CPT/HCPCS: 85610 ==

== ENCOUNTER → 2023-09-27 16:44 | Outpatient (BNVA) | payer MEDICARE, OTHER, SELFPAY | PROVIDERS: PCP Internal Medicine; Visit Provider Emergency Medicine | DX: I25.10 Atherosclerotic heart disease of native coronary artery without angina pectoris (principal) | CPT/HCPCS: 85610 ==

== ENCOUNTER 2023-10-03 23:09 | Observation (INO) | payer MEDICARE, OTHER, SELFPAY ==
[2023-10-03 23:14] VITALS: BP 206/108; PULSE 127; RESP 129; TEMP 37.3; O2SAT 88
[2023-10-03 23:17] VITALS: BP 206/108; PULSE 146; RESP 19; O2SAT 85
--- NOTE | 2023-10-03 23:22 | XRR_ITS ---
PROCEDURE INFORMATION: Exam: XR Chest Exam date and time: 10/04/2023 12:14 AM Age: 78 years old Clinical indication: Pain; Shortness of breath and wheezing; Chest pressure; Prior surgery; Surgery date: 6+ months; Surgery type: Cabg. Tavr; Patient HX: Chest discomfort with SOB and wheezing; Additional info: Dyspnea tachycardia TECHNIQUE: Imaging protocol: Radiologic exam of the chest. Views: 1 view. COMPARISON: CR (CHEST, ) 04/13/2023 11:40 AM FINDINGS: Lungs: No CHF/pulmonary edema. Visible lungs appear essentially clear. Pleural spaces: No visible pneumothorax. No definite pleural fluid. Heart/Mediastinum: Heart size appears upper normal/mildly prominent. Bones/joints: Prior median sternotomy. XR/XR chest 1V portable [id number] IMPRESSION: 1. No definite CHF or pneumonia. 2. Other findings discussed above.
--- NOTE | 2023-10-03 23:22 | ECG_ITS ---
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 Measurements Intervals [place] Rate: 136 P: 0 MA: 0 QRS: 59 QRSD: 107 T: 240 QT: 253 QTc: 381 Interpretive Statements ATRIAL FIBRILLATION WITH RAPID VENTRICULAR RESPONSE MARKED ST DEPRESSION Compared to ECG 04/13/2023 09:49:22 ST (T wave) deviation now present Electronically Signed On 10-04-2023 5:54:23 AIR DUCT MECHANIC by Santi Candelario M.D. [email or web address]/store/[id number] f
--- NOTE | 2023-10-03 23:24 | ED_ITS ---
HPI - SOB/Dyspnea 2 General: Chief Complaint: Shortness of Breath/Dyspnea Stated Complaint: sob wheezy pain right shoulder front left back Time Seen by Provider: 10/03/23 23:17 History of Present Illness: HPI Narrative: Patient presents to the ER with complaints of shortness of breath wheezy. Fatigue. patient does have a history of A-fib. Upon arrival patient was in A- fib with RVR with a rate of about 130 to 140 bpm. Patient takes warfarin has a history of CHF patient denies chest pain but does say that his right shoulder hurts from the frontal way through the back. Patient denies any diaphoresis, nausea vomiting, did say he was just had chills all day today. Patient denies ever having a heart attack but did admit that he has a four-vessel CABG history and has had a stent of his AAA Review of Systems 2 General: Reports: 10 or more systems reviewed and unremarkable except in HPI and below PFSH ED 2 PFSH: Medical History Lumbar radiculopathy BPH loc w urin obs/LUTS Gross hematuria Prostate cancer History of stomach ulcers SURGERY Hyperlipidemia LDL goal <70 Atrial fibrillation CAD (coronary artery disease) Aortic stenosis Surgical History S/P appendectomy History of surgery of liver H/O left wrist surgery H/O left knee surgery Hx of cholecystectomy H/O cataract extraction H/O shoulder surgery RIGHT H/O abdominal aortic aneurysm repair S/P CABG x 4 H/O endovascular stent graft for abdominal aortic aneurysm S/P TAVR (transcatheter aortic valve replacement) Family History Grandfather Cancer Paternal, lung Father , AT AGE 79 Asthma Mother , AT AGE 26 MVA No problems noted. Social History Smoking and tobacco/nicotine status: former use of tobacco/nicotine Quit status (tobacco/nicotine): has quit using Year quit tobacco: 1976 Alcohol intake: never Substance/Drug Use: unknown Adopted: No Caregiver/support person: No Lives independently: No Household members: spouse Marital status: Current occupational status: retired Current gender identity: Male Physical Exam 2 Const: COMMON NORMALS: no acute distress, average body habitus, patient oriented x3, no limitations, healthy appearing, alert and well nourished HENMT: COMMON NORMALS: normocephalic, atraumatic, hearing grossly normal bilaterally, external ears normal, moist oral mucous membranes and oropharynx normal HEAD & SCALP: normocephalic and atraumatic EXTERNAL EAR: Yes external ears normal Neck/C-Spine: COMMON NORMALS: full ROM, no lymphadenopathy, supple, no meningeal signs, no JVD and Thyroid normal THYROID: Thyroid normal Chest: COMMONS NORMALS: normal inspection of the chest and normal palpation of entire chest wall Resp: COMMON NORMALS: normal respiratory effort, No retractions, No use of accessory muscles, clear to auscultation bilaterally and percussion normal A USCULTATION: clear to auscultation bilaterally PERCUSSION: percussion normal Cardio: COMMON NORMALS: no JVD, S1 normal heart sound present, S2 normal heart sound present, No gallops present (Cardio), No clicks present (Cardio), No murmurs present (Cardio) and No rub (Cardio); negative for regular rhythm (Irregularly irregular tachycardic rhythm) R HYTHM: abnormal rhythm (Irregularly irregular tachycardic rhythm) HEART SOUNDS: S1 normal heart sound present and S2 normal heart sound present GI: COMMON NORMALS: Normal to inspection, nondistended, normoactive bowel sounds present, Soft to palpation, non-tender, No hepatosplenomegaly present and no masses PALPATION: Yes Soft to palpation and Yes No hepatosplenomegaly present Extremity: NARRATIVE EXTREMITY EXAM: Negative bilateral lower extremity edema Neuro: COMMON NORMALS: patient oriented x3 SENSORIUM/ORIENTATION: Yes alert MENINGEAL SIGNS: Yes no meningeal signs Course 2 Vital Signs: Vital signs: Vital Signs Temperature 99.2 F 10/03/23 23:14 Pulse Rate 126 H 10/04/23 00:45 Respiratory Rate 21 H 10/04/23 00:45 Blood Pressure 140/79 10/04/23 00:45 Pulse Oximetry 96 10/04/23 00:45 Oxygen Delivery Me thod Nasal Cannula 10/04/23 00:45 Oxygen Flow Rate 2.5 10/04/23 00:45 MDM - SOB/Dyspnea Medical Decision Making EKGs were sent to Dr. Cerrato who said LVH with right heart strain secondary to rate. Patient presents to the ER with main complaints of shortness of breath and wheezing. Upon arrival he had a heart rate of about 140 beats a minute. EKG showed he was in A-fib with RVR. Patien does have A-fib and is on Coumadin. Patient was given 20 mg bolus of Cardizem with slowed his heart rate down to about 120. Patient was then put on a Cardizem drip which was titrated up to 15 mg and this only improved his heart rate down to about 110. Lab work was obtained that included CBC CMP mag TSH cardiac enzymes urinalysis all of which was essentially unremarkable, chest x-ray was no CHF or pneumonia. Patient was given 20 mg of hydralazine for his blood pressure approximately 200/100 this improved to 137/87. Dr. Galvez was consulted who agreed to place the patient in CSU obs Differential Diagnosis Unlikely acute exacerbation of chronic obstructive airways disease, congestive heart failure, community acquired pneumonia, asthma with exacerbation or pulmonary embolism Medical Records I reviewed the patient's medical records. Lab Data I reviewed the patient's lab results. 10/03/23 23:26 10/04/23 00:10 Labs/Radiology: Radiology Impressions Chest X-Ray 10/03/23 23:22 IMPRESSION: 1. No definite CHF or pneumonia. 2. Other findings discussed above. Laboratory Results WBC 13.90 10^3/uL (3.29-11.43) H 10/03/23 23: RBC 4.80 10^6/uL (3.85-5.65) 10/03/23 23:26 Hgb 14.00 g/dL (11.27-16.99) 10/03/23 23:26 Hct 42.5 % (37-53) 10/03/23 23: MCV 88.5 fl (82-101) 10/03/23 23: MCH 29.2 pg (27-33) 10/03/23 23: MCHC 32.9 g/dL (30-55) 10/03/23 23: RDW 14.6 % (12.1-15.1) 10/03/23 23:26 Plt Count 172 10^3/cmm (157-399) 10/03/23 23:26 MPV 10.6 fL (7.4-10.4) H 10/03/23 23:26 Neut % (Auto) 92.9 % 10/03/23 23:26 Lymph % (Auto) 3.1 % 10/03/23 23:26 [place] % (Auto) 3.2 % 10/03/23 23:26 Eos % (Auto) 0.2 % 10/03/23 23:26 Baso % (Auto) 0.2 % 10/03/23 23:26 Neut # (Auto) 12.90 10^3/uL (1.8-7.7) H 10/03/23 23:26 Lymph # (Auto) 0.4 10^3/uL (0.8-4.8) L 10/03/23 23:26 [place] # (Auto) 0.5 10^3/uL (0.2-0.9) 10/03/23 23:26 Eos # (Auto) 0.0 10^3/uL (0.0-0.8) 10/03/23 23: Baso # (Auto) 0.0 10^3/uL (0.0-0.1) 10/03/23 23:26 Nucleated RBC % (auto) 0 % 10/03/23 23: Nucleated RBCs # 0.0 /100WBC 10/03/23 23: PT 25.80 SECONDS (12.1-14.9) H 10/04/23 00:10 INR 2.27 (0.8-1.2) H 10/04/23 00:10 Sodium 138 mmol/L (136-145) 10/04/23 00:10 Potassium 3.4 mmol/L (3.5-5.1) L 10/04/23 00:10 Chloride 100 mmol/L (98-107) 10/04/23 00:10 Carbon Dioxide 25 mmol/L (22-29) 10/04/23 00:10 Anion Gap 16.4 (5-19) 10/04/23 00:10 BUN 18 mg/dL (8-23) 10/04/23 00:10 Creatinine 0.7 mg/dL (0.7-1.2) 10/04/23 00:10 GFR Calculation Not Reportable 10/04/23 00:10 Glucose 146 mg/dL (65-115) H 10/04/23 00:10 Calculated Osmolality 291 mOsm/kg (285-295) 10/04/23 00:10 Calcium 8.5 mg/dL (8.5-10.5) 10/04/23 00:10 Magnesium 1.7 mg/dL (1.7-2.3) 10/04/23 00:10 Total Bilirubin 1.1 mg/dL (0.15-1.2) 10/04/23 00:10 AST 23 U/L (0-40) 10/04/23 00:10 ALT 26 U/L (0-41) 10/04/23 00:10 Alkaline Phosphatase 124 U/L (40-130) 10/04/23 00:10 Troponin T Baseline 13 ng/L (0-15) 10/04/23 00:10 Total Protein 6.9 g/dL (6.6-8.7) 10/04/23 00:10 Albumin 4.1 g/dL (3.5-5.2) 10/04/23 00:10 Globulin 2.8 g/dL (1.3-4.6) 10/04/23 00:10 TSH 1.81 uIU/mL (0.27-4.20) 10/04/23 00:10 Urine Color Yellow (Yellow) 10/04/23 00:12 Urine Appearance Clear (CLEAR) 10/04/23 00:12 Urine pH 6.5 (5-7) 10/04/23 00:12 Ur Specific [place] 1.015 (1.005-1.030) 10/04/23 00:12 Urine Protein Neg (Negative) 10/04/23 00:12 Urine Glucose (UA) Norm (Normal) 10/04/23 00:12 Urine Ketones 1+ (Negative) H 10/04/23 00:12 Urine Blood Neg (Negative) 10/04/23 00:12 Urine Nitrate Negative (Negative) 10/04/23 00:12 Urine Bilirubin Neg (Negative) 10/04/23 00:12 Urine Urobilinogen 1 mg/dL (Negative) H 10/04/23 00:12 Ur Leukocyte Esterase Negative (Negative) 10/04/23 00:12 All radiology interpretation(s) finalized by discharge Discharge Plan Discharge Patient Disposition: Placed in Observation Clinical Impression: Atrial fibrillation with rapid ventricular response Coding Level of Care Code ED Position Classifier for Chg Cathie
[2023-10-03] MEDS: dilTIAZem 5 mg/mL SDV 5 mL 20 MG IVP (23:29)
[2023-10-03 23:30] VITALS: PULSE 122; RESP 18; O2SAT 94
[2023-10-03 23:33] LABS: Basophils % 0.2 %; Eosinophils % 0.2 %; Hematocrit 42.5 % (37-53); Lymphocytes # 0.4 10^3/uL (0.8-4.8); Lymphocytes % 3.1 %; Mean Corpuscular HGB Conc 32.9 g/dL (30-55); Mean Corpuscular Hemoglobin 29.2 pg (27-33); Mean Corpuscular Volume 88.5 fl (82-101); Mean Platelet Volume 10.6 fL (7.4-10.4); Monocytes # 0.5 10^3/uL (0.2-0.9); Monocytes % 3.2 %; Neutrophils % 92.9 %; Nucleated Red Blood Cells % 0 %; Platelet Count 172 10^3/cmm (157-399); Red Cell Distribution Width 14.6 % (12.1-15.1)
[2023-10-03] MEDS: aspirin 325 mg Tablet PO (23:36)
[2023-10-03 23:45] VITALS: PULSE 117; RESP 19; O2SAT 92
[2023-10-03 23:55] VITALS: PULSE 105; RESP 18; O2SAT 93
[2023-10-03] MEDS: metoprolol tartrate 1 mg/1 mL SDV 5 mL 5 MG IVP (23:55)
[2023-10-03] MEDS: dilTIAZem 100 MG in sodium chloride 0.9% (add-van) 100 ML IV (23:55)
[2023-10-04] VITALS (17 sets, daily range): BP systolic 125–165; BP diastolic 69–116; PULSE 80–126; RESP 17–25; TEMP 36.4–37; O2SAT 93–97
[2023-10-04 00:19] LABS: Add Urine Microscopic? NO; Charge for UA Resulting for Rev
[2023-10-04] MEDS: hyDRALAzine 20 mg/mL INJ 1 mL IVP (00:19)
[2023-10-04 00:25] LABS: Protein Urine Neg (Negative); Specific Gravity, Urine 1.015 (1.005-1.030); Urine Appearance Clear (CLEAR); Urine Color Yellow (Yellow); pH Urine 6.5 (5-7)
[2023-10-04 00:26] LABS: Bilirubin Urine Neg (Negative); Blood Urine Neg (Negative); Glucose Urine UA Norm (Normal); Ketones Urine 1+ (Negative); Leukocyte Esterase Urine Negative (Negative); Nitrate Urine Negative (Negative); Urobilinogen Urine 1 mg/dL (Negative)
[2023-10-04 00:27] LABS: INR 2.27 (0.8-1.2)
[2023-10-04 00:37] LABS: Troponin(5th) Baseline 13 ng/L (0-15)
[2023-10-04 00:49] LABS: Alanine Aminotransferase 26 U/L (0-41); Albumin Level 4.1 g/dL (3.5-5.2); Alkaline Phosphatase 124 U/L (40-130); Anion Gap 16.4 (5-19); Aspartate Amino Transferase 23 U/L (0-40); Blood Urea Nitrogen 18 mg/dL (8-23); Calcium 8.5 mg/dL (8.5-10.5); Carbon Dioxide 25 mmol/L (22-29); Chloride 100 mmol/L (98-107); Globulin 2.8 g/dL (1.3-4.6); Glucose 146 mg/dL (65-115); Magnesium 1.7 mg/dL (1.7-2.3); Osmolality Calculated 291 mOsm/kg (285-295); Potassium 3.4 mmol/L (3.5-5.1); Sodium 138 mmol/L (136-145); Thyroid Stimulating Hormone 1.81 uIU/mL (0.27-4.20); Total Bilirubin 1.1 mg/dL (0.15-1.2); Total Protein 6.9 g/dL (6.6-8.7)
--- NOTE | 2023-10-04 01:22 | ECG_ITS ---
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 Measurements Intervals [place] Rate: 117 P: 0 ID: 0 QRS: 59 QRSD: 106 T: 0 QT: 282 QTc: 394 Interpretive Statements ATRIAL FIBRILLATION WITH RAPID VENTRICULAR RESPONSE MARKED ST DEPRESSION, CONSIDER SUBENDOCARDIAL INJURY [0.2+ mV ST DEPRESSION] ACUTE NH Compared to ECG 10/03/2023 23:16:51 No significant changes Electronically Signed On 10-04-2023 5:59:39 AIRCRAFT SYSTEMS REPAIRER by Santi Candelario M.D. [id number]
--- NOTE | 2023-10-04 01:31 | PM.HP ---
Providers/Chief Complaint Primary Care Provider: Myles Ford DO Chief Complaint: sob wheezy pain right shoulder front left back History of Present Illness Deacon Allred is a 78 year old male with past medical history significant for AAA, aortic stenosis status post TAVR, coronary artery disease with history of four-vessel CABG, hypertension, dyslipidemia, prostate cancer, and BPH who presents to the emergency department with shortness of breath x 2 days. Patient reports chronic shortness of breath which is changed in the past 2 days. The shortness of breath is getting markedly worse in the past 48 hours. Reports exertion worsens symptoms. Rest improves symptoms. Endorses associated symptoms of initially a productive cough with became dry cough 2 days ago. He attributes his symptomatology to not being able to produce sputum. He denies chest pains, fevers, chills, nausea or emesis. In the emergency department, he was found to have atrial fibrillation with rapid ventricular rate. He has a known history of atrial fibrillation. He is on Coreg, diltiazem, and warfarin. He was started on a diltiazem drip in the ED without significant improvement. He follows with cardiology clinic. Dr. Cerrato was reportedly contacted by ED provider. Review of Systems Narrative: A complete review of systems was obtained and is negative except as stated in HPI. Medications/Allergies Home Medications Medication Instructions Recorded Confirmed Last Taken Type aspirin 81 mg tablet,delayed 81 mg PO DAILY 08/26/19 09/27/23 06/04/23 06:00 History release (Adult Low Dose Aspirin) atorvastatin 40 mg tablet 40 mg PO DAILY 08/26/19 09/27/23 06/04/23 06:00 History multivitamin 1 tab PO DAILY 08/26/19 09/27/23 06/03/23 20:00 History furosemide 20 mg tablet 20 mg PO DAILY 11/09/19 09/27/23 06/04/23 06:00 History tamsulosin 0.4 mg capsule 0.4 mg PO BID 04/25/20 09/27/23 06/04/23 06:00 History carvedilol 25 mg tablet 25 mg PO BID #180 tabs 02/26/23 09/27/23 06/04/23 06:00 Rx [place] Cinnamon 2400mg 2,400 mg PO BID 04/13/23 09/27/23 06/04/23 06:00 History cartilage 40 mg-collagen II 10 1 tab PO DAILY 04/13/23 09/27/23 06/04/23 06:00 History mg-boron 5 mg-hyaluronate 3.3 mg tablet (5 Minutes) diazepam 5 mg tablet (Valium) 5 mg PO BID PRN vertigo #10 tabs 04/13/23 09/27/23 06/03/23 22:00 Rx losartan 50 mg tablet 50 mg PO DAILY 04/13/23 09/27/23 06/04/23 06:00 History nitroglycerin 0.4 mg sublingual See Rx Instructions .Route 06/13/23 09/27/23 Unknown Rx tablet .COMPLEX #25 tabs diltiazem HCl 300 mg 300 mg PO DAILY #90 caps 07/15/23 09/27/23 Unknown Rx capsule,extended release 24 hr warfarin 1 mg tablet See Rx Instructions .Route 07/15/23 09/27/23 Unknown Rx .COMPLEX #90 tabs isosorbide mononitrate 30 mg 30 mg PO BID #180 tabs 08/07/23 09/27/23 Unknown Rx tablet,extended release 24 hr warfarin 5 mg tablet 5 mg PO DAILY #90 tabs 09/02/23 09/27/23 Unknown Rx Allergies Allergy/AdvReac Type Severity Reaction Status Date / Time No Known Allergies Allergy Verified 10/03/23 23:18 PFSH Acute PFSH: Medical History Lumbar radiculopathy BPH loc w urin obs/LUTS Gross hematuria Prostate cancer History of stomach ulcers SURGERY Hyperlipidemia LDL goal <70 Atrial fibrillation CAD (coronary artery disease) Aortic stenosis Surgical History S/P appendectomy History of surgery of liver H/O left wrist surgery H/O left knee surgery Hx of cholecystectomy H/O cataract extraction H/O shoulder surgery RIGHT H/O abdominal aortic aneurysm repair S/P CABG x 4 H/O endovascular stent graft for abdominal aortic aneurysm S/P TAVR (transcatheter aortic valve replacement) Family History Grandfather Cancer Paternal, lung Father , AT AGE 79 Asthma Mother , AT AGE 26 MVA No problems noted. Social History Smoking and tobacco/nicotine status: former use of tobacco/nicotine Quit status (tobacco/nicotine): has quit using Year quit tobacco: 1976 Alcohol intake: never Substance/Drug Use: unknown Adopted: No Caregiver/support person: No Lives independently: No Household members: spouse Marital status: Current occupational status: retired Current gender identity: Male Vitals/I&O/Wt Last Vital Signs Temp 99.2 F 10/03/23 23:14 Pulse 126 H 10/04/23 00:45 Resp 21 H 10/04/23 00:45 BP 140/79 10/04/23 00:45 Pulse Ox 96 10/04/23 00:45 O2 Del Method Nasal Cannula 10/04/23 00:45 O2 Flow Rate 2.5 10/04/23 00:45 10/03/23 10/03/23 10/04/23 14:59 22:59 06:59 Intake Total 4.083 / 4.083 Balance 4.083 / 4.083 Weight last 48 hrs Weight 118.841 kg Physical Exam Narrative: General: Patient is awake and alert. Pleasant. Winded at times. Head: Normocephalic. Atraumatic. EOM intact. Neck: No JVD. Cardiovascular: Irregularly irregular. Heart rate in the 130s. No gallops. No murmurs. Lungs: Tachypnea. Increased work of breathing and difficulty finishing sentences while speaking. No rhonchi's. No rales. Nonproductive cough is present. Skin: No jaundice. No rashes. Abdomen: Normal bowel sounds, abdomen soft and nontender. Genito Urinary: Genital exam not performed since complaints not related. Rectal: Rectal exam not performed since no symptoms indicated blood loss. Extremities: No cyanosis or clubbing. Musculoskeletal: No swollen or erythematous joints. Neurological: Moves all 4 extremities. No myoclonus. Data 10/03/23 23:26 10/04/23 00:10 A&P Assessment and plan (1) Atrial fibrillation with rapid ventricular response: Patient started on Cardizem drip, will continue Cardizem drip for now Hold home Cardizem 300 mg ER daily Continue home Coreg 25 mg twice daily Continue warfarin for anticoagulation, pharmacy to dose Telemetry monitoring Monitor electrolytes Cardiology has been consulted, appreciate recommendations (2) Cough: Recent productive cough which has become nonproductive Suspect URI Chest x-ray negative for evidence of pneumonia Leukocytosis noted Check procalcitonin Low threshold for antibiotics if further workup reveals evidence of potential pneumonia Supportive care Qualifiers: Cough type: acute Qualified Code(s): R05.1 - Acute cough (3) Hypertension: Continue home Coreg Continue home losartan Qualifiers: Hypertension type: essential hypertension Qualified Code(s): I10 - Essential (primary) hypertension (4) CAD (coronary artery disease): Denies chest pain Continue beta-nika Continue high intensity statin Continue aspirin Telemetry monitoring Qualifiers: Coronary Disease-Associated Artery/Lesion type: nome artery [place] vs. transplanted heart: nome heart Associated angina: unspecified whether angina present Qualified Code(s): I25.10 - Atherosclerotic heart disease of nome coronary artery without angina pectoris (5) Hyperlipidemia LDL goal <70: Continue statin (6) BPH loc w urin obs/LUTS: Continue Flomax Plan DVT prophylaxis: Warfarin CODE STATUS: Assume full code Attestations Medical Necessity Statement*: Patient presents with acute on chronic shortness of breath in the setting of cough, found to have atrial fibrillation with rapid ventricular rate with expected hospitalization not to cross 2 midnights for titration of rate control medications. Admit to observation status. Coding Level of Care Code Acute Code for [facility] Diagnoses Atrial fibrillation with rapid ventricular response I48.91 Acute cough R05.1 Cough type: acute Essential hypertension I10 Hypertension type: essential hypertension Coronary artery disease involving nome coronary artery of nome heart, unspecified whether angina present I25.10 Coronary Disease-Associated Artery/Lesion type: nome artery [place] vs. transplanted heart: nome heart Associated angina: unspecified whether angina present Hyperlipidemia LDL goal <70 E78.5 BPH loc w urin obs/LUTS N40.1
[2023-10-04 01:58] LABS: Troponin 5 2HR 19.46 ng/L (0-15); Troponin 5 2HR Delta 6.46 ABS# (0-10)
--- NOTE | 2023-10-04 02:16 | PC.NURSE ---
Report called to Ivet SHIRLEY in [facility]. All questions and concerns addressed at time of report.
[2023-10-04] MEDS: guaiFENesin 600 mg Tablet 1200 MG PO ×2 (04:41→16:42)
[2023-10-04] MEDS: potassium chloride ER 20 mEq Tablet 40 MEQ PO (04:41)
--- NOTE | 2023-10-04 05:08 | ECG_ITS ---
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 Measurements Intervals [place] Rate: 98 P: 0 [place]: 0 QRS: 48 QRSD: 99 T: 29 QT: 355 QTc: 454 Interpretive Statements ATRIAL FIBRILLATION NONSPECIFIC ST & T-WAVE ABNORMALITY Compared to ECG 10/03/2023 23:34:28 T-wave abnormality now present ST (T wave) deviation no longer present Electronically Signed On 10-04-2023 5:58:48 [employer]ATIONS VICE PRESIDENT by Santi Candelario M.D. [id number]
[2023-10-04] MEDS: dilTIAZem 100 MG in sodium chloride 0.9% (add-van) 100 ML 15 MG IV (06:10)
[2023-10-04 07:07] LABS: Troponin 5 6HR 44.07 ng/L (0-15)
[2023-10-04 07:11] LABS: Troponin 5 6HR Delta 31.07 ng/L (0-12)
[2023-10-04] MEDS: isosorbide mononitrate ER 30 mg Tablet PO ×2 (09:27→18:46)
[2023-10-04] MEDS: aspirin 81 mg EC Tablet PO (09:27)
[2023-10-04] MEDS: losartan 50 mg Tablet PO (09:28)
[2023-10-04] MEDS: carvedilol 25 mg Tablet PO ×2 (09:28→18:46)
[2023-10-04] MEDS: atorvastatin 40 mg Tablet PO (09:28)
[2023-10-04] MEDS: tamsulosin 0.4 mg Capsule PO ×2 (09:28→18:46)
[2023-10-04] MEDS: acetaminophen 325 mg Tablet 650 MG PO ×2 (09:35→22:02)
[2023-10-04] MEDS: FUROsemide 10 mg/mL SDV 2mL 20 MG IVP (10:01)
--- NOTE | 2023-10-04 11:00 | PM.MISC ---
Miscellaneous Note Purpose of Documentation: Overnight labs and H&P reveiwed HR 86-90 at time of assessment , cardizem gtt at 10mg/hr received carvedilol 25 mg Add Cardizem 60mg po q6h and attempt to titrate of gtt c/o post nasal drip, throat discomfort, recent URI symptoms, check resp panel for COVID, influenza Crackles to auscultation B/L - C/f pulmonary edema- lasix 20mg iv x 1 now, asses for response, will order further doses based on response CXR overnight without consolidation no h/o COPD Trop trend 13--> 19--> 44, likely related to A fib, RVR, increased demand no chest pain currently, low concern for ACS
--- NOTE | 2023-10-04 11:29 | PC.CHAP ---
Pastoral Care Encounter/Spiritual Assessment Type of Contact [] Declined balance staff inspector visit [] Patient/Family/Request visit [] Outpatient visit [] Follow-up visit [] Physician referral [] Code/Alert [] Routine visit [] Staff referral [] Actively dying [] Patient sleeping [] Family support [] [] Out of room [] Palliative care [] [] Receiving care in room [] Pre-surgical visit [] Trauma [] Long length of stay [] ICU visit [] Other: Relational/Emotional Strength [] Patient feels connected with others/family/visitors/staff [] Distress [] Loneliness/isolation [] Abandonment Spirituality of Patient [x] Person of Kalli [] Attends Hoahaoism of their Kalli [] Believes in Prayer [] Reads Bible or Anabaptist materials [] There are Spiritual issues to be addressed Director Data Processing Interventions [x] Prayer [] Active listening [] Non-anxious presence [] Spiritual/emotional support [] Crisis/trauma care [] Spiritual counseling [] Bereavement support [] Provided bereavement packet [] Provided Bible/devotional materials [] Provided toy/stuffed animal, coloring book to patient or family member [] Provided Communion [] Anointing/[place] [] Salvation [] Completed spiritual assessment [] Other: Impact on Illness or Injury [] Angry [] Fearful [] Anxious [] Often cries [] Exhaustion [] Unable to work [] Unable to attend holiness [] Unable to walk/stand [] Unable to read [] Unable to drive [] Unable to eat/drink [] Unable to sleep [] Unable to be with family [] Patient intubated [] Other: Summary Prayed over patient with his family Time spent with patient
[2023-10-04] MEDS: warfarin 2 mg Tablet 6 MG PO (14:06)
--- NOTE | 2023-10-04 14:13 | PC.NURSE ---
pt stated he usually takes 7 mg of coumadin on friday, friday, , friday. informed pt that pharmacy is dosing his coumadin and his level today is 2.27 today. I asked him i will talk to the pharmacy or doctor but patient stated, this should be okay. Notified pharmacist on pt's dosing.
[2023-10-04 15:15] LABS: Adenovirus Not Detected (NOT DETECT); Chlamydia Pneumoniae Not Detected (NOT DETECT); Coronavirus 229E,HKU1,NL63,OC4 Not Detected (NOT DETECT); Human Metapneumovirus Not Detected (NOT DETECT); Human Rhinovirus/Enterovirus Not Detected (NOT DETECT); Influenza A Not Detected (NOT DETECT); Influenza A H1 Not Detected (NOT DETECT); Influenza A H1-2009 Not Detected (NOT DETECT); Influenza A H3 Not Detected (NOT DETECT); Influenza B Not Detected (NOT DETECT); Mycoplasma Pneumoniae Not Detected (NOT DETECT); Parainfluenza Virus Type 1 Not Detected (NOT DETECT); Parainfluenza Virus Type 2 Not Detected (NOT DETECT); Parainfluenza Virus Type 3 Not Detected (NOT DETECT); Parainfluenza Virus Type 4 Not Detected (NOT DETECT); Respiratory Syncytial Virus A Not Detected (NOT DETECT); Respiratory Syncytial Virus B Not Detected (NOT DETECT); SARS-COV-2 Not Detected (NOT DETECT)
[2023-10-04] MEDS: dilTIAZem 60 mg Tablet PO ×2 (16:42→20:48)
[2023-10-04 17:15] LABS: NT Pro B Type Natriuretic Pept 1223 pg/mL (0-450)
[2023-10-04] MEDS: cetylpyridinium Lozenge 1 EACH MUCOUS MEM (20:48)
[2023-10-05] VITALS: BP 146/85; PULSE 79; RESP 22; TEMP 36.7; O2SAT 90
[2023-10-05 03:59] LABS: Basophils % 0.2 %; Eosinophils # 0.1 10^3/uL (0.0-0.8); Eosinophils % 0.7 %; Hematocrit 34.5 % (37-53); Lymphocytes # 0.9 10^3/uL (0.8-4.8); Lymphocytes % 7.9 %; Mean Corpuscular HGB Conc 32.8 g/dL (30-55); Mean Corpuscular Hemoglobin 29.1 pg (27-33); Mean Corpuscular Volume 88.9 fl (82-101); Mean Platelet Volume 10.6 fL (7.4-10.4); Monocytes # 0.8 10^3/uL (0.2-0.9); Monocytes % 6.6 %; Neutrophils # 9.69 10^3/uL (1.8-7.7); Neutrophils % 84.2 %; Nucleated Red Blood Cells % 0 %; Platelet Count 151 10^3/cmm (157-399); Red Blood Count 3.88 10^6/uL (3.85-5.65); Red Cell Distribution Width 14.6 % (12.1-15.1); White Blood Count 11.51 10^3/uL (3.29-11.43)
[2023-10-05 04:00] VITALS: BP 141/88; PULSE 96; RESP 23; TEMP 36.6; O2SAT 94
[2023-10-05] MEDS: dilTIAZem 60 mg Tablet PO ×2 (04:09→10:36)
[2023-10-05 04:38] LABS: Anion Gap 16.7 (5-19); Blood Urea Nitrogen 15 mg/dL (8-23); Calcium 8.6 mg/dL (8.5-10.5); Carbon Dioxide 24 mmol/L (22-29); Chloride 98 mmol/L (98-107); Glucose 133 mg/dL (65-115); Osmolality Calculated 283 mOsm/kg (285-295); Phosphorus 2.7 mg/dL (2.5-4.5); Potassium 3.7 mmol/L (3.5-5.1); Sodium 135 mmol/L (136-145)
[2023-10-05 04:44] LABS: Troponin T (5th) Once 103 ng/L (0-15)
[2023-10-05 05:56] VITALS: PULSE 104
[2023-10-05] MEDS: acetaminophen 325 mg Tablet 650 MG PO (06:19)
[2023-10-05] MEDS: cetylpyridinium Lozenge 1 EACH MUCOUS MEM (06:20)
[2023-10-05 07:30] VITALS: BP 136/83; PULSE 88; RESP 26; TEMP 36.5; O2SAT 92
--- NOTE | 2023-10-05 07:46 | P.CONIM_ITS ---
Providers/Reason For Consult 2 Consulting Physician/Specialty*: Cardiovascular medicine Reason for Consult*: Rapid heart rate Requesting Physician: Hospitalist Attending Physician: Silva Wilder MD Primary Care Provider: Myles Ford DO History of Present Illness History of Present Illness Deacon Allred is a 78 year old male who I know fairly well. He is a previous patient of Dr. Ferreira. He came in to see her last fall with chest discomfort. She requested I perform coronary angiography which was done in May of last year. At that time he had a lesion in the saphenous vein graft to the marginal branch which underwent angioplasty. I could not stented. His other grafts were open. He has severe underlying three-vessel upper [place] coronary artery disease. I saw him in her absence on August 04 when he seemed to be doing well. He has a lot of other medical problems including chronic atrial fibrillation, coronary artery disease, aortic stenosis post TAVR, AAA post endovascular repair, bypass surgery, prior tobacco abuse, hypertension, dyslipidemia and prostate cancer. He is anticoagulated with warfarin. He had been getting short of breath for several days. 2 days ago, he simply could not get enough air and told his he needed to come into the hospital. He was admitted on IV Cardizem after being seen in the emergency room with rapid atrial fibrillation. His heart rate in the emergency room was about 150 bpm. He is BNP was 1223. Chest x-ray did not reveal any heart failure. His CBC and electrolytes were unremarkable. Creatinine is normal. His troponins are 13, 19, 31 and 103. His EKGs reveal atrial fibrillation with a rapid ventricular response and ST segment changes. As his heart rate comes down the ST segment changes resolved. According to the admitting physicians notes I was contacted by the emergency room to see the patient. This is not correct. I did not find out the patient was in the hospital until last evening at 7:00 when I saw his son coming down the hallway. His heart rate has come down. He is off the Cardizem. He feels much better. He is breathing is much easier. Review of Systems 2 Narrative: His review of systems is negative aside from the shortness of breath. Medications/Allergies Home Medications Medication Instructions Recorded Confirmed Last Taken Type aspirin 81 mg tablet,delayed 81 mg PO DAILY 08/26/19 10/04/23 10/03/23 08:00 History release (Adult Low Dose Aspirin) atorvastatin 40 mg tablet 40 mg PO DAILY 08/26/19 10/04/23 10/03/23 08:00 History multivitamin 1 tab PO DAILY 08/26/19 10/04/23 10/03/23 History furosemide 20 mg tablet 20 mg PO DAILY 11/09/19 10/04/23 10/03/23 History tamsulosin 0.4 mg capsule 0.4 mg PO BID 04/25/20 10/04/23 10/03/23 History carvedilol 25 mg tablet 25 mg PO BID #180 tabs 02/26/23 10/04/23 10/03/23 Rx [place] Cinnamon 2400mg 2,400 mg PO BID 04/13/23 10/04/23 10/03/23 History cartilage 40 mg-collagen II 10 1 tab PO DAILY 04/13/23 10/04/23 10/03/23 History mg-boron 5 mg-hyaluronate 3.3 mg tablet ([employer]) diazepam 5 mg tablet (Valium) 5 mg PO BID PRN vertigo #10 tabs 04/13/23 10/04/23 10/03/23 Rx losartan 50 mg tablet 50 mg PO DAILY 04/13/23 10/04/23 10/03/23 History nitroglycerin 0.4 mg sublingual See Rx Instructions .Route 06/13/23 10/04/23 Unknown Rx tablet .COMPLEX #25 tabs diltiazem HCl 300 mg 300 mg PO DAILY #90 caps 07/15/23 10/04/23 10/03/23 08:00 Rx capsule,extended release 24 hr warfarin 1 mg tablet See Rx Instructions .Route 07/15/23 10/04/23 10/03/23 Rx .COMPLEX #90 tabs isosorbide mononitrate 30 mg 30 mg PO BID #180 tabs 08/07/23 10/04/23 10/03/23 Rx tablet,extended release 24 hr warfarin 5 mg tablet 5 mg PO DAILY #90 tabs 09/02/23 10/04/23 10/03/23 Rx Allergies Allergy/AdvReac Type Severity Reaction Status Date / Time No Known Allergies Allergy Verified 10/03/23 23:18 Current Medications Generic Name Dose Route Start Last Admin Trade Name Freq PRN Reason Stop Dose Admin Acetaminophen 650 mg 10/04/23 02:12 10/05/23 06:19 Acetaminophen 325 Mg Tablet PO 650 mg Q6H PRN Administration Mild/Mod Pain Or Temp >/= 101 Aspirin 81 mg 10/04/23 09:00 10/04/23 09:27 Aspirin 81 Mg Ec Tablet PO 81 mg DAILY NINA Administration Atorvastatin Calcium 40 mg 10/04/23 09:00 10/04/23 09:28 Atorvastatin 40 Mg Tablet PO 40 mg DAILY NINA Administration Benzocaine 1 each 10/04/23 02:29 10/05/23 06:20 Cetylpyridinium Lozenge MUCOUS MEM 1 each Q2H PRN Administration SORE THROAT Carvedilol 25 mg 10/04/23 09:00 10/04/23 18:46 Carvedilol 25 Mg Tablet PO 25 mg BID NINA Administration Diltiazem HCl 60 mg 10/04/23 15:30 10/05/23 04:09 Diltiazem 60 Mg Tablet PO 60 mg Q6H NINA Administration Guaifenesin 1,200 mg 10/04/23 02:34 10/04/23 16:42 Guaifenesin 600 Mg Tablet PO 1,200 mg BID NINA Administration Diltiazem HCl 100 mg/ Sodium 100 mls @ 0 mls/hr 10/03/23 23:45 10/04/23 14:00 Chloride IV 0 mg/hr .Q0M NINA 0 mls/hr Titration Protocol Per Protocol Isosorbide Mononitrate 30 mg 10/04/23 09:00 10/04/23 18:46 Isosorbide Mononitrate Er 30 Mg Tablet PO 30 mg BID NINA Administration Losartan Potassium 50 mg 10/04/23 09:00 10/04/23 09:28 Losartan 50 Mg Tablet PO 50 mg DAILY NINA Administration Tamsulosin HCl 0.4 mg 10/04/23 09:00 10/04/23 18:46 Tamsulosin 0.4 Mg Capsule PO 0.4 mg BID NINA Administration Warfarin Sodium 6 mg 10/04/23 14:00 10/04/23 14:06 Warfarin 2 Mg Tablet PO 6 mg 1400 NINA Administration PFSH Acute 2 PFSH: Medical History (Updated 10/05/23 @ 07:57 by Barrett Cerrato MD) Warfarin anticoagulation Lumbar radiculopathy BPH loc w urin obs/LUTS Gross hematuria Prostate cancer History of stomach ulcers SURGERY Hyperlipidemia LDL goal <70 Atrial fibrillation CAD (coronary artery disease) Aortic stenosis Surgical History S/P appendectomy History of surgery of liver H/O left wrist surgery H/O left knee surgery Hx of cholecystectomy H/O cataract extraction H/O shoulder surgery RIGHT H/O abdominal aortic aneurysm repair S/P CABG x 4 H/O endovascular stent graft for abdominal aortic aneurysm S/P TAVR (transcatheter aortic valve replacement) Family History Grandfather Cancer Paternal, lung Father , AT AGE 79 Asthma Mother , AT AGE 26 MVA No problems noted. Social History Smoking and tobacco/nicotine status: former use of tobacco/nicotine Quit status (tobacco/nicotine): has quit using Year quit tobacco: 1976 Alcohol intake: never Substance/Drug Use: unknown Adopted: No Caregiver/support person: No Lives independently: No Household members: spouse Marital status: Current occupational status: retired Current gender identity: Male Vitals/I&O/Wt Last Vital Signs Temp 97.7 F 10/05/23 07:30 Pulse 88 10/05/23 07:30 Resp 26 H 10/05/23 07:30 BP 136/83 10/05/23 07:30 Pulse Ox 92 10/05/23 07:30 O2 Del Method Room Air 10/05/23 07:30 O2 Flow Rate 2.5 10/04/23 08:54 10/04/23 10/05/23 10/05/23 22:59 06:59 14:59 Intake Total 240 / 277.224 5211 / 2245.500 Output Total 1080 / 1960 675 / 2635 220 / 220 Balance -840 / -1154.500 765 / -389.500 -220 / -220 Weight last 48 hrs Weight 273 lb 3.2 oz Weight 266 lb 12.8 oz Weight 266 lb 12.8 oz Weight 262 lb Physical Exam 2 Narrative: GENERAL: In general he looks and feels well this morning HEENT: Exam within normal limits. NECK: Supple without jugular vein distention. The carotid upstroke is normal without bruits. BACK: Exam normal. LUNGS: Clear. HEART: Irregular rate and rhythm ABDOMEN: Benign without organomegaly or tenderness. EXTREMITIES: No edema. NEUROLOGIC: Exam normal. SKIN: Unremarkable. Data 10/05/23 03:47 10/05/23 03:47 A&P Assessment and plan (1) CAD (coronary artery disease): Qualifiers: Coronary Disease-Associated Artery/Lesion type: [place] artery [place] vs. transplanted heart: [place] heart Associated angina: unspecified whether angina present Qualified Code(s): I25.10 - Atherosclerotic heart disease of [place] coronary artery without angina pectoris (2) Atrial fibrillation: (3) Hypertension: Qualifiers: Hypertension type: essential hypertension Qualified Code(s): I10 - Essential (primary) hypertension (4) Hyperlipidemia LDL goal <70: (5) S/P TAVR (transcatheter aortic valve replacement): (6) H/O endovascular stent graft for abdominal aortic aneurysm: (7) S/P CABG x 4: (8) H/O abdominal aortic aneurysm repair: (9) Warfarin anticoagulation: Plan This is atrial fibrillation followed by congestive heart failure or the other way around. More than likely the heart rate increased causing mild volume overload. His chest x-ray does not show any evidence of volume overload however his troponin and his BNP are both elevated. I suspect that troponin elevation is secondary to the rapid atrial fibrillation. I do not think there is anything else that needs to be done. We know his underlying organic heart disease is present and probably is relatively stable. I see no indication for stress testing or angiography. As long as his heart rate is controlled he may be discharged home. He probably has follow-up already arranged in our office. He should go home on his home medications that include aspirin, statin, carvedilol 25 mg twice daily, diltiazem 300 mg daily, Lasix, long-acting nitrate, losartan, warfarin. Consult Attestations 2 Medical Necessity Statement: Should be able to go home today. and High Time for a total of 65 minutes, includes reviewing past or interval history, examining/interviewing patient, placing orders, counseling patient/family/other support, updating patient/family/other support, discussing plan of care with staff, communicating with other healthcare providers, documenting encounter and coordinating care Diagnoses Coronary artery disease involving [place] coronary artery of [place] heart, unspecified whether angina present I25.10 Coronary Disease-Associated Artery/Lesion type: [place] artery [place] vs. transplanted heart: upper [place] heart Associated angina: unspecified whether angina present Atrial fibrillation I48.91 Essential hypertension I10 Hypertension type: essential hypertension Hyperlipidemia LDL goal <70 E78.5 S/P TAVR (transcatheter aortic valve replacement) Z95.2 H/O endovascular stent graft for abdominal aortic aneurysm Z95.828 S/P CABG x 4 Z95.1 H/O abdominal aortic aneurysm repair Z98.890 Warfarin anticoagulation Z79.01
[2023-10-05] MEDS: guaiFENesin 600 mg Tablet 1200 MG PO (08:14)
[2023-10-05] MEDS: tamsulosin 0.4 mg Capsule PO (08:15)
[2023-10-05] MEDS: losartan 50 mg Tablet PO (08:15)
[2023-10-05] MEDS: carvedilol 25 mg Tablet PO (08:15)
[2023-10-05] MEDS: atorvastatin 40 mg Tablet PO (08:15)
[2023-10-05] MEDS: isosorbide mononitrate ER 30 mg Tablet PO (08:15)
[2023-10-05] MEDS: FUROsemide 40 mg Tablet PO (08:15)
[2023-10-05] MEDS: aspirin 81 mg EC Tablet PO (08:15)
[2023-10-05 11:26] VITALS: BP 149/87; PULSE 94; RESP 20; TEMP 36.5; O2SAT 95
--- NOTE | 2023-10-05 16:39 | P.DS_ITS ---
Discharge Providers Date of Admission: 10/04/23 01:33 Date of Discharge: October 05, 2023 Attending Provider at Admission: Jhonathan Glavez MD Attending Provider at Discharge: Silva Wilder MD Primary Care Provider: Myles Ford DO Diagnoses at Discharge Discharge Diagnosis (1) CAD (coronary artery disease): Status: Acute Qualifiers: Coronary Disease-Associated Artery/Lesion type: [place] artery [place] vs. transplanted heart: [place] heart Associated angina: unspecified whether angina present Qualified Code(s): I25.10 - Atherosclerotic heart disease of [place] coronary artery without angina pectoris (2) Atrial fibrillation: Status: Acute (3) Hypertension: Status: Acute Qualifiers: Hypertension type: essential hypertension Qualified Code(s): I10 - Essential (primary) hypertension (4) Hyperlipidemia LDL goal <70: Status: Acute (5) S/P TAVR (transcatheter aortic valve replacement): Status: Acute (6) H/O endovascular stent graft for abdominal aortic aneurysm: Status: Acute (7) S/P CABG x 4: Status: Acute (8) H/O abdominal aortic aneurysm repair: Status: Acute (9) Warfarin anticoagulation: Status: Acute Reason for Visit Reason for Visit: sob wheezy pain right shoulder front left back Hospital Course Hospital Course Deacon Allred is a 78 year old male with past medical history significant for AAA, aortic stenosis status post TAVR, coronary artery disease with history of four-vessel CABG, hypertension, dyslipidemia, prostate cancer, and BPH who presents to the emergency department with shortness of breath x 2 days. He reported some URI type symptoms with runny nose, postnasal drip over the past week however he did not start feeling short of breath until 2 to 3 days ago. He denied any fever, cough or expectoration. Chest x-ray was negative for consolidation. He was found to be in A-fib with RVR and was started on Cardizem infusion upon presentation. This was able to be titrated off with resuming his home dose of carvedilol 25 mg twice daily and overlapping with oral diltiazem 60 mg every 6 hours. His rate is currently well-controlled. Patient takes Coumadin for anticoagulation, INR was within therapeutic range. He was found to have evidence of CHF with elevated BNP, crackles on bilateral lung auscultation. He received IV Lasix on October 04, 2023 which did improve his respiratory symptoms significantly. Chest is clear to auscultation today at the time of discharge. Scattered intermittent wheezing is noted which may be related to acute bronchitis related to URI type symptoms as noted above. Short course of azithromycin 500 mg for 3 days has been prescribed for this possibility. He had mildly elevated troponins during the course of admission, he was evaluated by cardiology additionally, likely the troponin leak was related to CHF versus A-fib with RVR. Patient remained chest pain-free during the entire course of his admission here. He is discharged today in improved condition with recommendations to increase daily Lasix to 40 mg every day for the next week, then reduce dose back to 20 mg every day as he takes currently. Follow-up with Larisa Duran in 1 week and then cardiology in 1 month. Physical Exam Narrative: General: No acute distress, AO x3 HEENT: PERRLA, pupils bilaterally equal and reactive, pallors not present Chest: Normal vesicular breath sounds, no added sounds, equal good air entry bilaterally CVS: S1-S2 regular, no murmurs, no tachycardia, no gallops, no rubs Abdomen: Soft, nontender, no organomegaly, bowel sounds present Neuro: No focal deficits, no facial deformity, AO x3, power 5/5 in all limbs Extremities: no edema, clubbing or cyanosis Discharge Data Studies Completed and Pending Completed Studies During Hospitalization Category Date Time Status XR chest 1V portable [id number] Stat Exams 10/03/23 23:22 Completed Radiology Impressions Chest X-Ray 10/03/23 23:22 IMPRESSION: 1. No definite CHF or pneumonia. 2. Other findings discussed above. Laboratory Results WBC 11.51 10^3/uL (3.29-11.43) H 10/05/23 03:47 RBC 3.88 10^6/uL (3.85-5.65) 10/05/23 03:47 Hgb 11.30 g/dL (11.27-16.99) 10/05/23 03:47 Hct 34.5 % (37-53) L 10/05/23 03:47 MCV 88.9 fl (82-101) 10/05/23 03:47 MCH 29.1 pg (27-33) 10/05/23 03:47 MCHC 32.8 g/dL (30-55) 10/05/23 03:47 RDW 14.6 % (12.1-15.1) 10/05/23 03:47 Plt Count 151 10^3/cmm (157-399) L 10/05/23 03:47 MPV 10.6 fL (7.4-10.4) H 10/05/23 03:47 Neut % (Auto) 84.2 % 10/05/23 03:47 Lymph % (Auto) 7.9 % 10/05/23 03:47 [place] % (Auto) 6.6 % 10/05/23 03:47 Eos % (Auto) 0.7 % 10/05/23 03:47 Baso % (Auto) 0.2 % 10/05/23 03:47 Neut # (Auto) 9.69 10^3/uL (1.8-7.7) H 10/05/23 03:47 Lymph # (Auto) 0.9 10^3/uL (0.8-4.8) 10/05/23 03:47 [place] # (Auto) 0.8 10^3/uL (0.2-0.9) 10/05/23 03:47 Eos # (Auto) 0.1 10^3/uL (0.0-0.8) 10/05/23 03:47 Baso # (Auto) 0.0 10^3/uL (0.0-0.1) 10/05/23 03:47 Nucleated RBC % (auto) 0 % 10/05/23 03:47 Nucleated RBCs # 0.0 /100WBC 10/05/23 03:47 PT 25.80 SECONDS (12.1-14.9) H 10/04/23 00:10 INR 2.27 (0.8-1.2) H 10/04/23 00:10 Sodium 135 mmol/L (136-145) L 10/05/23 03:47 Potassium 3.7 mmol/L (3.5-5.1) 10/05/23 03:47 Chloride 98 mmol/L (98-107) 10/05/23 03:47 Carbon Dioxide 24 mmol/L (22-29) 10/05/23 03:47 Anion Gap 16.7 (5-19) 10/05/23 03:47 BUN 15 mg/dL (8-23) 10/05/23 03:47 Creatinine 0.7 mg/dL (0.7-1.2) 10/05/23 03:47 GFR Calculation Not Reportable 10/05/23 03:47 Glucose 133 mg/dL (65-115) H 10/05/23 03:47 Calculated Osmolality 283 mOsm/kg (285-295) L 10/05/23 03:47 Calcium 8.6 mg/dL (8.5-10.5) 10/05/23 03:47 Phosphorus 2.7 mg/dL (2.5-4.5) 10/05/23 03:47 Magnesium 2.0 mg/dL (1.7-2.3) 10/05/23 03:47 Total Bilirubin 1.1 mg/dL (0.15-1.2) 10/04/23 00:10 AST 23 U/L (0-40) 10/04/23 00:10 ALT 26 U/L (0-41) 10/04/23 00:10 Alkaline Phosphatase 124 U/L (40-130) 10/04/23 00:10 Troponin T 5th Gen ng/L 103 ng/L (0-15) H* 10/05/23 03:47 Troponin T Baseline 13 ng/L (0-15) 10/04/23 00:10 Troponin T 120 Minute 19.46 ng/L (0-15) H 10/04/23 01:36 Delta Troponin T 6.46 ABS# (0-10) 10/04/23 01:36 Troponin T Hi Sens 6Hr 44.07 ng/L (0-15) H 10/04/23 05:48 Troponin T Hi Sens 6Hr Delta 31.07 ng/L (0-12) H* 10/04/23 05:48 NT-Pro-B Natriuret Pep 1223 pg/mL (0-450) H 10/04/23 05:48 Total Protein 6.9 g/dL (6.6-8.7) 10/04/23 00:10 Albumin 4.1 g/dL (3.5-5.2) 10/04/23 00:10 Globulin 2.8 g/dL (1.3-4.6) 10/04/23 00:10 Procalcitonin 0.40 ng/mL (0-0.5) 10/04/23 01:36 TSH 1.81 uIU/mL (0.27-4.20) 10/04/23 00:10 Urine Color Yellow (Yellow) 10/04/23 00:12 Urine Appearance Clear (CLEAR) 10/04/23 00:12 Urine pH 6.5 (5-7) 10/04/23 00:12 Ur Specific [place] 1.015 (1.005-1.030) 10/04/23 00:12 Urine Protein Neg (Negative) 10/04/23 00:12 Urine Glucose (UA) Norm (Normal) 10/04/23 00:12 Urine Ketones 1+ (Negative) H 10/04/23 00:12 Urine Blood Neg (Negative) 10/04/23 00:12 Urine Nitrate Negative (Negative) 10/04/23 00:12 Urine Bilirubin Neg (Negative) 10/04/23 00:12 Urine Urobilinogen 1 mg/dL (Negative) H 10/04/23 00:12 Ur Leukocyte Esterase Negative (Negative) 10/04/23 00:12 Adenovirus (PCR) Not detected (NOT DETECT) 10/04/23 12:50 C. pneumoniae DNA (PCR) Not detected (NOT DETECT) 10/04/23 12:50 Coronavirus 229E (PCR) Not detected (NOT DETECT) 10/04/23 12:50 Human Metapneumovir PCR Not detected (NOT DETECT) 10/04/23 12:50 Influenza A (H1) PCR Not detected (NOT DETECT) 10/04/23 12:50 Influ A (H1/09) PCR Not detected (NOT DETECT) 10/04/23 12:50 Influenza A (H3) PCR Not detected (NOT DETECT) 10/04/23 12:50 Influenza Type A (PCR) Not detected (NOT DETECT) 10/04/23 12:50 Influenza Type B (PCR) Not detected (NOT DETECT) 10/04/23 12:50 M. pneumoniae (PCR) Not detected (NOT DETECT) 10/04/23 12:50 Parainfluenza 1 (PCR) Not detected (NOT DETECT) 10/04/23 12:50 Parainfluenza 2 (PCR) Not detected (NOT DETECT) 10/04/23 12:50 Parainfluenza 3 (PCR) Not detected (NOT DETECT) 10/04/23 12:50 Parainfluenza 4 (PCR) Not detected (NOT DETECT) 10/04/23 12:50 RSV Type A (PCR) Not detected (NOT DETECT) 10/04/23 12:50 RSV Type B (PCR) Not detected (NOT DETECT) 10/04/23 12:50 Entero/Rhino (PCR) Not detected (NOT DETECT) 10/04/23 12:50 SARS-CoV-2 (PCR) Not detected (NOT DETECT) 10/04/23 12:50 Vitals Last Vital Signs Temp 97.7 F 10/05/23 11:26 Pulse 94 10/05/23 11:26 Resp 20 H 10/05/23 11:26 BP 149/87 10/05/23 11:26 Pulse Ox 95 10/05/23 11:26 O2 Del Method Room Air 10/05/23 11:26 O2 Flow Rate 2.5 10/04/23 08:54 Discharge Plan Discharge Patient Disposition: Home Condition: Stable Prescriptions: New azithromycin 500 mg tablet See Rx Instructions .ROUTE .COMPLEX Qty: 3 0RF Rx Instructions: For 500 mg dose pack: take 500 mg once daily for 3 days Continued aspirin [Adult Low Dose Aspirin] 81 mg tablet,delayed release (DR/EC) 81 mg PO DAILY atorvastatin 40 mg tablet 40 mg PO DAILY multivitamin Tablet 1 tab PO DAILY tamsulosin 0.4 mg capsule 0.4 mg PO BID carvedilol 25 mg tablet 25 mg PO BID Qty: 180 2RF nitroglycerin 0.4 mg tablet, sublingual See Rx Instructions .ROUTE .COMPLEX Qty: 25 2RF Dose Instruction: DISSOLVE 1 TABLET UNDER THE TONGUE EVERY 5 MINUTES NEEDED FOR CHEST PAIN. DO NOT EXCEED A TOTAL OF 3 DOSES IN 15 MINUTES Rx Instructions: DISSOLVE 1 TABLET UNDER THE TONGUE EVERY 5 MINUTES NEEDED FOR CHEST PAIN. DO NOT EXCEED A TOTAL OF 3 DOSES IN 15 MINUTES diltiazem HCl 300 mg capsule,extended release 24hr 300 mg PO DAILY Qty: 90 1RF warfarin 1 mg tablet See Rx Instructions .ROUTE .COMPLEX Qty: 90 3RF Protocol: Dose Management Condition: Friday Dose/Route: 7 mg Instruction: 2 x 1 mg tablets, 1 x 5 mg tablet Condition: Friday Dose/Route: 6 mg Instruction: 1 x 1 mg tablet, 1 x 5 mg tablet Condition: Friday Dose/Route: 7 mg Instruction: 2 x 1 mg tablets, 1 x 5 mg tablet Condition: Friday Dose/Route: 6 mg Instruction: 1 x 1 mg tablet, 1 x 5 mg tablet Condition: Dose/Route: 7 mg Instruction: 2 x 1 mg tablets, 1 x 5 mg tablet Condition: Friday Dose/Route: 6 mg Instruction: 1 x 1 mg tablet, 1 x 5 mg tablet Condition: Friday Dose/Route: 7 mg Instruction: 2 x 1 mg tablets, 1 x 5 mg tablet Protocol Text: Adjustment Start Date: 09/25/23 INR Value: 34.6 Seconds INR Date: 09/25/23 Recheck Date: 10/02/23 Rx Instructions: TAKE 6MG PO DAILY EXCEPT ON AND TAKE 7MG DAILY isosorbide mononitrate 30 mg tablet extended release 24 hr 30 mg PO BID Qty: 180 2RF Rx Instructions: 30 mg orally twice a day; warfarin 5 mg tablet 5 mg PO DAILY Qty: 90 3RF Protocol: Dose Management Condition: Friday Dose/Route: 7 mg Instruction: 2 x 1 mg tablets, 1 x 5 mg tablet Condition: Friday Dose/Route: 6 mg Instruction: 1 x 1 mg tablet, 1 x 5 mg tablet Condition: Friday Dose/Route: 7 mg Instruction: 2 x 1 mg tablets, 1 x 5 mg tablet Condition: Friday Dose/Route: 6 mg Instruction: 1 x 1 mg tablet, 1 x 5 mg tablet Condition: Dose/Route: 7 mg Instruction: 2 x 1 mg tablets, 1 x 5 mg tablet Condition: Friday Dose/Route: 6 mg Instruction: 1 x 1 mg tablet, 1 x 5 mg tablet Condition: Friday Dose/Route: 7 mg Instruction: 2 x 1 mg tablets, 1 x 5 mg tablet Protocol Text: Adjustment Start Date: 09/25/23 INR Value: 34.6 Seconds INR Date: 09/25/23 Recheck Date: 10/02/23 losartan 50 mg tablet 50 mg PO DAILY [place] Cinnamon 2400mg 2,400 mg PO BID [facility] 40-10-5-3.3 mg Tablet 1 tab PO DAILY diazepam [Valium] 5 mg tablet 5 mg PO BID PRN (Reason: vertigo) Qty: 10 0RF Changed furosemide 20 mg tablet 40 mg PO DAILY 7 Days Qty: 7 0RF Discharge Orders: Discharge Order (Routine); Ordered 10/05/23 Ordered By: Silva Wilder Referrals: Larisa Duran FNP [Nurse Practitioner] - 7-10 days Myles Ford DO [Primary Care Provider] - Discharge Diet: Cardiac Discharge Activity: Resume usual activity Patient Instructions: Bronchitis (Acute) - Adult, Azithromycin (By mouth), A- fib (Atrial Fibrillation) (DC), Heart Healthy Diet (DC), CHF Stoplight, Opioid Safety, Pain Management Plan of Treatment: take lasix 40mg po daily for next 5 days, then reduce dose back to 20mg daily Discharge Attestations Time Spent in Discharge Care*: greater than 30 min Quality Metrics Clinical Quality Measures [ No reported AMI, CVA or VTE this stay] Coding Level of Care Code Acute Code for Chg Fwd Diagnoses Coronary artery disease involving [place] coronary artery of [place] heart, unspecified whether angina present I25.10 Coronary Disease-Associated Artery/Lesion type: [place] artery [place] vs. transplanted heart: [place] heart Associated angina: unspecified whether angina present Atrial fibrillation I48.91 Essential hypertension I10 Hypertension type: essential hypertension Hyperlipidemia LDL goal <70 E78.5 S/P TAVR (transcatheter aortic valve replacement) Z95.2 H/O endovascular stent graft for abdominal aortic aneurysm Z95.828 S/P CABG x 4 Z95.1 H/O abdominal aortic aneurysm repair Z98.890 Warfarin anticoagulation Z79.01
== END 2023-10-05 13:28 | disposition home or self-care (01) ==
LOC: ER 10-04 01:48 → CSU 10-04 02:07
PROVIDERS: Admitting Provider Internal Medicine; Emergency Provider Emergency Medicine; PCP Internal Medicine; Visit Provider Student in an Organized Health Care Education/Training Program
DX: I25.10 Atherosclerotic heart disease of native coronary artery without angina pectoris (principal); I48.91 Unspecified atrial fibrillation; I10 Essential (primary) hypertension; R05.1 Acute cough; E78.5 Hyperlipidemia, unspecified; Z95.2 Presence of prosthetic heart valve; Z95.828 Presence of other vascular implants and grafts; Z95.1 Presence of aortocoronary bypass graft; Z98.890 Other specified postprocedural states; Z79.01 Long term (current) use of anticoagulants; Z79.82 Long term (current) use of aspirin; N40.1 Benign prostatic hyperplasia with lower urinary tract symptoms; N13.8 Other obstructive and reflux uropathy; Z85.46 Personal history of malignant neoplasm of prostate; Z87.891 Personal history of nicotine dependence
CPT/HCPCS: 36415; 71045; 80048; 80053; 81003; 83735; 83880; 84100; 84145; 84443; 84484; 85025; 85610; 87486; 87581; 87633; 93005; 96365; 96366; 96375; 99285; G0378; J0360; J1940; J3490

== ENCOUNTER → 2023-10-23 10:32 | Outpatient (BNVA) | payer MEDICARE, OTHER, SELFPAY | PROVIDERS: PCP Internal Medicine; Visit Provider Internal Medicine Cardiovascular Disease | DX: I25.10 Atherosclerotic heart disease of native coronary artery without angina pectoris (principal); I48.91 Unspecified atrial fibrillation | CPT/HCPCS: 85610 ==

== ENCOUNTER → 2023-10-27 14:17 | Outpatient (BNVA) | payer MEDICARE, OTHER, SELFPAY | PROVIDERS: PCP Internal Medicine; Visit Provider Nurse Practitioner Family | DX: I48.91 Unspecified atrial fibrillation (principal) | CPT/HCPCS: 36415; 80048; 83880; 99214 ==

== ENCOUNTER → 2023-10-29 10:36 | Outpatient (BNVA) | payer MEDICARE, OTHER, SELFPAY | PROVIDERS: PCP Internal Medicine; Visit Provider Internal Medicine | DX: I25.10 Atherosclerotic heart disease of native coronary artery without angina pectoris (principal); I48.91 Unspecified atrial fibrillation | CPT/HCPCS: 85610 ==

== ENCOUNTER → 2023-11-27 09:54 | Outpatient (BNVA) | payer MEDICARE, OTHER, SELFPAY | PROVIDERS: PCP Internal Medicine; Visit Provider Internal Medicine Cardiovascular Disease | DX: I25.10 Atherosclerotic heart disease of native coronary artery without angina pectoris (principal); I48.91 Unspecified atrial fibrillation | CPT/HCPCS: 85610 ==

== ENCOUNTER → 2023-12-25 10:23 | Outpatient (BNVA) | payer MEDICARE, OTHER, SELFPAY | PROVIDERS: PCP Internal Medicine; Visit Provider Internal Medicine Cardiovascular Disease | DX: I25.10 Atherosclerotic heart disease of native coronary artery without angina pectoris (principal); I48.20 Chronic atrial fibrillation, unspecified | CPT/HCPCS: 85610 ==

== ENCOUNTER → 2024-01-22 15:40 | Outpatient (BNVA) | payer MEDICARE, OTHER, SELFPAY | PROVIDERS: PCP Internal Medicine; Visit Provider Internal Medicine Cardiovascular Disease | DX: I48.91 Unspecified atrial fibrillation | CPT/HCPCS: 85610 ==

== ENCOUNTER → 2024-02-16 10:51 | Outpatient (BNVA) | payer MEDICARE, OTHER, SELFPAY | PROVIDERS: PCP Internal Medicine; Visit Provider Internal Medicine Cardiovascular Disease | DX: I25.10 Atherosclerotic heart disease of native coronary artery without angina pectoris (principal); Z95.2 Presence of prosthetic heart valve; I48.20 Chronic atrial fibrillation, unspecified; I10 Essential (primary) hypertension; E78.5 Hyperlipidemia, unspecified; Z95.828 Presence of other vascular implants and grafts; Z95.1 Presence of aortocoronary bypass graft; Z98.890 Other specified postprocedural states; Z79.01 Long term (current) use of anticoagulants; Z87.891 Personal history of nicotine dependence | CPT/HCPCS: 99214 ==

== ENCOUNTER → 2024-03-18 16:05 | Outpatient (BNVA) | payer MEDICARE, OTHER, SELFPAY | PROVIDERS: PCP Internal Medicine; Visit Provider Internal Medicine Cardiovascular Disease | DX: I25.10 Atherosclerotic heart disease of native coronary artery without angina pectoris (principal); Z95.2 Presence of prosthetic heart valve | CPT/HCPCS: 85610 ==

== ENCOUNTER 2024-03-23 08:41 | Outpatient (CLI) | payer MEDICARE, OTHER, SELFPAY ==
[2024-03-23 08:55] VITALS: BMI 35.4
--- NOTE | 2024-03-23 08:58 | ECG_ITS ---
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
--- NOTE | 2024-03-23 08:58 | NMCV_ITS ---
NM goyo perf SPECT r/s* [id number] Deacon Allred Age: 78 Gender: M : 1945 Exam Date: 03/23/2024 08:58 Ordering Phys: Barrett Cerrato MD ([email or web address]) Technologist: SANTI Finn Exam Location: [facility] Indications: CP, SOB STRESS TEST [facility] IMAGE PROTOCOL Rest/Stress 1 Lexiscan Day Radiopharmaceutical Dose (mCi) Administration Site Administered by Rest: Tc-99m 11.0 IV SANTI Finn Sestamibi Stress:Tc-99m 33.0 IV SANTI Finn Sestamibi Rest: 23-Mar-2024 60 Discovery 630 Stress: 23-Mar-2024 30 Discovery 630 0.4mg Lexiscan. Supine position only as patient was unable to lay prone. SPECT RESULTS Technical Quality: Good Raw Data Analysis: Normal Image Corrections: No attenuation or motion correction applied Summed Stress Score: 11 Summed Rest Score: 5 Summed Difference Score: 7 PERFUSION FINDINGS There is a large area of moderate to severe intensity, mostly reversible perfusion defect noted in the lateral wall. This is consistent with medium sized area of prior infarct with large area of hanna-infarct ischemia in lateral wall. FUNCTIONAL RESULTS (calculated via Gated SPECT) Stress Image LV EF (%): 58 Stress EDV (mL):112 TID: 1.06 Stress ESV (mL):47 FUNCTIONAL FINDINGS: There is normal left ventricular systolic function. IMPRESSIONS 1. Abnormal myocardial perfusion imaging with medium sized area of prior infarct with large area of hanna-infarct ischemia seen in lateral wall. 2. LV systolic function is normal Santi Candelario MD (Electronically Signed) Final Date: 24 March 2024 08:46 S
[2024-03-23] MEDS: regadenoson 0.4 Mg/5 ml Syringe IVP (10:54)
[2024-03-23 11:22] VITALS: BP 136/84; PULSE 81
== END 2024-03-23 08:42 | disposition home or self-care (01) ==
LOC: CDL 08:42
PROVIDERS: PCP Internal Medicine; Visit Provider Internal Medicine Cardiovascular Disease
DX: R06.02 Shortness of breath (principal); R07.9 Chest pain, unspecified; I25.10 Atherosclerotic heart disease of native coronary artery without angina pectoris; Z95.2 Presence of prosthetic heart valve
CPT/HCPCS: 36415; 78452; 85610; 93017; 96374; A9500; J2785

== ENCOUNTER → 2024-04-06 15:29 | Outpatient (BNVA) | payer MEDICARE, OTHER, SELFPAY | PROVIDERS: PCP Internal Medicine; Visit Provider Internal Medicine | DX: I25.10 Atherosclerotic heart disease of native coronary artery without angina pectoris (principal); I48.20 Chronic atrial fibrillation, unspecified; I10 Essential (primary) hypertension; E78.5 Hyperlipidemia, unspecified; Z95.2 Presence of prosthetic heart valve; Z95.828 Presence of other vascular implants and grafts; Z95.1 Presence of aortocoronary bypass graft; Z98.890 Other specified postprocedural states; R06.02 Shortness of breath; Z79.01 Long term (current) use of anticoagulants; Z87.891 Personal history of nicotine dependence | CPT/HCPCS: 99214 ==

== ENCOUNTER → 2024-04-15 16:28 | Outpatient (BNVA) | payer MEDICARE, OTHER, SELFPAY | PROVIDERS: PCP Internal Medicine; Visit Provider Internal Medicine Cardiovascular Disease | DX: I25.10 Atherosclerotic heart disease of native coronary artery without angina pectoris (principal); I48.91 Unspecified atrial fibrillation | CPT/HCPCS: 85610 ==

== ENCOUNTER → 2024-05-13 13:54 | Outpatient (BNVA) | payer MEDICARE, OTHER, SELFPAY | PROVIDERS: PCP Internal Medicine; Visit Provider Internal Medicine | DX: I25.10 Atherosclerotic heart disease of native coronary artery without angina pectoris (principal); I48.91 Unspecified atrial fibrillation | CPT/HCPCS: 85610 ==

== ENCOUNTER 2024-05-25 11:04 | Outpatient (CLI) | payer MEDICARE, OTHER, SELFPAY ==
[2024-05-25 11:23] LABS: Basophils % 0.3 %; Eosinophils # 0.1 10^3/uL (0.0-0.8); Eosinophils % 1.3 %; Hematocrit 41.1 % (37-53); Lymphocytes % 16.1 %; Mean Corpuscular HGB Conc 32.8 g/dL (30-55); Mean Corpuscular Volume 88.4 fl (82-101); Mean Platelet Volume 10.5 fL (7.4-10.4); Monocytes # 0.6 10^3/uL (0.2-0.9); Monocytes % 9.2 %; Neutrophils # 4.52 10^3/uL (1.8-7.7); Neutrophils % 72.8 %; Nucleated Red Blood Cells % 0 %; Platelet Count 164 10^3/cmm (157-399); Red Blood Count 4.65 10^6/uL (3.85-5.65); Red Cell Distribution Width 14.2 % (12.1-15.1); White Blood Count 6.21 10^3/uL (3.29-11.43)
[2024-05-25 11:39] LABS: Alanine Aminotransferase 38 U/L (0-41); Albumin Level 4.5 g/dL (3.5-5.2); Alkaline Phosphatase 128 U/L (40-130); Aspartate Amino Transferase 29 U/L (0-40); Blood Urea Nitrogen 22 mg/dL (8-23); Calcium 9.1 mg/dL (8.5-10.5); Carbon Dioxide 31 mmol/L (22-29); Chloride 99 mmol/L (98-107); Globulin 2.7 g/dL (1.3-4.6); Glucose 177 mg/dL (65-115); Osmolality Calculated 304 mOsm/kg (285-295); Sodium 143 mmol/L (136-145); Total Bilirubin 0.7 mg/dL (0.15-1.2); Total Protein 7.2 g/dL (6.6-8.7)
== END 2024-05-25 11:05 | disposition home or self-care (01) ==
LOC: LAB 11:06
PROVIDERS: PCP Internal Medicine; Visit Provider Urology
DX: Z51.11 Encounter for antineoplastic chemotherapy (principal); C61 Malignant neoplasm of prostate; Z79.899 Other long term (current) drug therapy
CPT/HCPCS: 36415; 80053; 85025

== ENCOUNTER → 2024-06-09 12:18 | Outpatient (BNVA) | payer MEDICARE, OTHER, SELFPAY | PROVIDERS: PCP Internal Medicine; Visit Provider Internal Medicine | DX: I25.10 Atherosclerotic heart disease of native coronary artery without angina pectoris (principal); I48.20 Chronic atrial fibrillation, unspecified; Z79.01 Long term (current) use of anticoagulants; Z79.82 Long term (current) use of aspirin; I10 Essential (primary) hypertension; E78.5 Hyperlipidemia, unspecified; Z95.2 Presence of prosthetic heart valve; Z95.828 Presence of other vascular implants and grafts; Z95.1 Presence of aortocoronary bypass graft; Z98.890 Other specified postprocedural states; Z87.891 Personal history of nicotine dependence; R06.09 Other forms of dyspnea | CPT/HCPCS: 85610; 99214 ==

== ENCOUNTER → 2024-06-17 16:59 | Outpatient (BNVA) | payer MEDICARE, OTHER, SELFPAY | PROVIDERS: PCP Internal Medicine; Visit Provider Internal Medicine | DX: I25.10 Atherosclerotic heart disease of native coronary artery without angina pectoris (principal) | CPT/HCPCS: 85610 ==

== ENCOUNTER → 2024-06-30 16:05 | Outpatient (BNVA) | payer MEDICARE, OTHER, SELFPAY | PROVIDERS: PCP Internal Medicine; Visit Provider Internal Medicine | DX: I25.10 Atherosclerotic heart disease of native coronary artery without angina pectoris (principal); I48.20 Chronic atrial fibrillation, unspecified | CPT/HCPCS: 85610 ==

== ENCOUNTER → 2024-07-28 16:12 | Outpatient (BNVA) | payer MEDICARE, OTHER, SELFPAY | PROVIDERS: PCP Internal Medicine; Visit Provider Internal Medicine | DX: I25.10 Atherosclerotic heart disease of native coronary artery without angina pectoris (principal); I48.20 Chronic atrial fibrillation, unspecified | CPT/HCPCS: 85610 ==

== ENCOUNTER → 2024-08-04 13:24 | Outpatient (BNVA) | payer MEDICARE, OTHER, SELFPAY | PROVIDERS: PCP Internal Medicine; Visit Provider Internal Medicine | DX: I25.10 Atherosclerotic heart disease of native coronary artery without angina pectoris (principal) | CPT/HCPCS: 85610 ==

== ENCOUNTER → 2024-08-11 16:25 | Outpatient (BNVA) | payer MEDICARE, OTHER, SELFPAY | PROVIDERS: PCP Internal Medicine; Visit Provider Internal Medicine | DX: I25.10 Atherosclerotic heart disease of native coronary artery without angina pectoris (principal) | CPT/HCPCS: 85610 ==

== ENCOUNTER → 2024-09-10 09:16 | Outpatient (BNVA) | payer MEDICARE, OTHER, SELFPAY | PROVIDERS: PCP Internal Medicine; Visit Provider Internal Medicine | DX: I25.10 Atherosclerotic heart disease of native coronary artery without angina pectoris (principal); I48.91 Unspecified atrial fibrillation | CPT/HCPCS: 85610 ==

== ENCOUNTER → 2024-09-23 09:56 | Outpatient (BNVA) | payer MEDICARE, OTHER, SELFPAY | PROVIDERS: PCP Otolaryngology; Visit Provider Internal Medicine | DX: I25.10 Atherosclerotic heart disease of native coronary artery without angina pectoris (principal); I48.91 Unspecified atrial fibrillation | CPT/HCPCS: 85610 ==

== ENCOUNTER 2024-10-21 19:32 | Observation (INO) | payer MEDICARE, OTHER, SELFPAY ==
[2024-10-21] VITALS (7 sets, daily range): BP systolic 149–164; BP diastolic 84–89; PULSE 97–119; RESP 16–25; TEMP 36.7; O2SAT 92–97; BMI 35.2
--- NOTE | 2024-10-21 19:42 | ECG_ITS ---
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 Measurements Intervals [place] Rate: 110 P: 0 DC: 0 QRS: 50 QRSD: 100 T: 266 QT: 342 QTc: 464 Interpretive Statements ATRIAL FIBRILLATION WITH RAPID VENTRICULAR RESPONSE ST DEVIATION AND MODERATE T-WAVE ABNORMALITY, CONSIDER INFERIOR ISCHEMIA [-0.1+ mV T-WAVE IN II/aVF] INTERPRETATION BASED ON A DEFAULT AGE OF 40 YEARS Compared to ECG 10/04/2023 05:08:02 Possible ischemia now present T-wave abnormality still present Electronically Signed On 10-23-2024 07:48:45 COMMERCIAL FOOD INSTRUCTOR by Santi Candelario M.D. [id number]
--- NOTE | 2024-10-21 20:03 | XRR_ITS ---
PROCEDURE INFORMATION: Exam: XR Chest Exam date and time: 10/21/2024 8:07 PM Age: 79 years old Clinical indication: Shortness of breath TECHNIQUE: Imaging protocol: Radiologic exam of the chest. Views: 1 view. COMPARISON: CR XR chest 1V portable [id number] 10/04/2023 12:14 AM FINDINGS: Lungs: Emphysematous changes. Pleural spaces: Small left pleural effusion. Heart/Mediastinum: Cardiomegaly. Bones/joints: Sternotomy wires. XR/XR chest 1V portable [id number] IMPRESSION: 1. Cardiomegaly. 2. Emphysematous changes. 3. Small left pleural effusion. 4. Sternotomy wires.
--- NOTE | 2024-10-21 20:31 | W.ED.ARRPALP ---
HPI - Arrhythmia/Palpitations General: Chief Complaint: Arrhythmia/Palpitations Stated Complaint: WEak n/v high pulse Time Seen by Provider: 10/21/24 19:55 History of Present Illness: 79-year-old man with a history of atrial fibrillation and chronic anticoagulation on Coumadin, coronary artery disease, hypertension, obesity, AAA repair in the past who presents to the emergency room with shortness of breath. Also concerns for his A-fib acting up. He says since this morning he has been feeling more short of breath. Positive [employer] he had an episode where he felt like he was going to throw up. His whitewater rafting guide had concern that this may be related to his heart disease. No fevers. No cough. No abdominal pain. Related Data Home Medications ?Medication ?Instructions ?Recorded ?Confirmed aspirin 81 mg tablet,delayed 81 mg PO DAILY 08/26/19 06/09/24 release (Adult Low Dose Aspirin) atorvastatin 40 mg tablet 40 mg PO DAILY 08/26/19 06/09/24 multivitamin 1 tab PO DAILY 08/26/19 06/09/24 tamsulosin 0.4 mg capsule 0.4 mg PO BID 04/25/20 06/09/24 [place] Cinnamon 2400mg 2,400 mg PO BID 04/13/23 06/09/24 cartilage 40 mg-collagen II 10 1 tab PO DAILY 04/13/23 06/09/24 mg-boron 5 mg-hyaluronate 3.3 mg tablet (Ocular Therapeutix) losartan 50 mg tablet 50 mg PO DAILY 04/13/23 06/09/24 dapagliflozin propanediol 5 mg 5 mg PO DAILY 02/16/24 06/09/24 tablet (Farxiga) darolutamide 300 mg tablet (Nubeqa) 300 mg PO BID 06/09/24 06/09/24 Previous Rx's ?Medication ?Instructions ?Recorded furosemide 20 mg tablet 40 mg (2 x 20 mg) PO DAILY #90 tabs 12/10/23 diltiazem HCl 300 mg 300 mg PO DAILY #90 caps 03/29/24 capsule,extended release 24 hr isosorbide mononitrate 30 mg 30 mg PO BID #180 tabs 04/29/24 tablet,extended release 24 hr clonidine HCl 0.1 mg tablet 0.1 mg PO BID PRN blood pressure 06/15/24 over 180 /110 #90 tabs warfarin 1 mg tablet See Rx Instructions .Route 06/24/24 .COMPLEX #90 tabs nitroglycerin 0.4 mg sublingual See Rx Instructions .Route 07/09/24 tablet .COMPLEX #25 tabs carvedilol 25 mg tablet 25 mg PO BID #180 tabs 08/30/24 warfarin 5 mg tablet 5 mg PO DAILY #90 tabs 08/30/24 Allergies Allergy/AdvReac Type Severity Reaction Status Date / Time No Known Allergies Allergy Verified 10/21/24 19:49 Review of Systems Narrative: Constitutional symptoms: Negative except as documented in HPI. Skin symptoms: Negative except as documented in HPI. Eye symptoms: Negative except as documented in HPI. ENMT symptoms: Negative except as documented in HPI. Respiratory symptoms: Negative except as documented in HPI. Cardiovascular symptoms: Negative except as documented in HPI. Gastrointestinal symptoms: Negative except as documented in HPI. Genitourinary symptoms: Negative except as documented in HPI. Musculoskeletal symptoms: Negative except as documented in HPI. Neurologic symptoms: Negative except as documented in HPI. Psychiatric symptoms: Negative except as documented in HPI. Endocrine symptoms: Negative except as documented in HPI. PFSH ED PFSH: Medical History Warfarin anticoagulation Lumbar radiculopathy BPH loc w urin obs/LUTS Gross hematuria Prostate cancer History of stomach ulcers SURGERY Hyperlipidemia LDL goal <70 Atrial fibrillation CAD (coronary artery disease) Aortic stenosis Surgical History S/P appendectomy History of surgery of liver H/O left wrist surgery H/O left knee surgery Hx of cholecystectomy H/O cataract extraction H/O shoulder surgery RIGHT H/O abdominal aortic aneurysm repair S/P CABG x 4 H/O endovascular stent graft for abdominal aortic aneurysm S/P TAVR (transcatheter aortic valve replacement) Family History Grandfather Cancer Paternal, lung Father , AT AGE 79 Asthma Mother , AT AGE 26 MVA No problems noted. Social History Smoking and tobacco/nicotine status: former use of tobacco/nicotine Quit status (tobacco/nicotine): has quit using Year quit tobacco: 1976 Alcohol intake: never Substance/Drug Use: unknown Adopted: No Caregiver/support person: No Lives independently: No Household members: spouse Marital status: Current occupational status: retired Current gender identity: Male Physical Exam Narrative: EXAM NARRATIVE: General: Alert, no acute distress. Skin: Warm, dry. Head: Normocephalic, atraumatic. Neck: Supple, trachea midline. Eye: Extraocular movements are intact. Ears, nose, mouth and throat: mucosa moist. Cardiovascular: Irregular, tachycardic, Normal peripheral perfusion. Patient says swelling in his legs is better than usual. Respiratory: Lungs are clear to auscultation, respirations are non-labored, breath sounds are equal, Symmetrical chest wall expansion. Gastrointestinal: Soft, Nontender, Non distended Musculoskeletal: Normal ROM, no deformity. Neurological: Alert and oriented, No focal neurological deficit observed. Psychiatric: Cooperative, appropriate mood & affect. Course Vital Signs: Vital signs: Vital Signs Temperature 98.1 F 10/21/24 19:36 Pulse Rate 108 H 10/21/24 22:00 Respiratory Rate 24 H 10/21/24 22:00 Blood Pressure 157/88 10/21/24 22:00 Pulse Oximetry 96 10/21/24 22:00 Oxygen Delivery Me thod Room Air 10/21/24 20:34 MDM - Arrhythmia/Palpitations Medical Decision Making Differential diagnosis for patient with shortness of breath includes but is not limited to and based on the above HPI, review of systems and physical exam: Pneumonia. Bronchitis. Asthma or COPD with acute exacerbation. Acute coronary syndrome / MD. Pulmonary embolism. Anxiety. Congestive heart failure. Viral infections including influenza and Covid-19. Atrial fibrillation. Anxiety. Pleural effusion. Pneumothorax. Orders placed to evaluate differential diagnosis based on the above differential, HPI and physical exam EKG: Time 1941. Rate 110. Atrial fibrillation with rapid ventricular response, diffuse ST depression, this is relatively unchanged from previous EKG, no ectopy, This was reviewed and interpreted by myself the ER physician at 1944 Chest x-ray: Cardiomegaly, sternotomy wires, no acute process. This was reviewed and interpreted by myself the emergency room physician. I also reviewed the radiology report. Lab Review: Laboratory results were reviewed and interpreted by myself the emergency room physician. No leukocytosis. No anemia. No renal failure. Flu and COVID are negative. TSH is normal. Initial troponin is normal at 14 I reviewed the patient's medical record. Reexamination: After tilt Tyzine bolus patient's heart rate had come down to about 105. Diltiazem drip is being started. He is not requiring any oxygen. No increased work of breathing while at rest. Consultation: I spoke with , Who is on-call for the hospitalist service and agrees to admission Assessment and plan: Atrial fibrillation with rapid ventricular rate Subtherapeutic Coumadin level Dyspnea ?Diltiazem bolus and drip. -I discussed the patient with the hospitalist on-call who is admitting the patient. - Discussed findings and plan with patient. Answered any questions. - All laboratory values were reviewed and interpreted personally by myself, the ER physician - All imaging was reviewed and interpreted personally by myself, the ER physician. - Evaluation and treatment of this problem were appropriate in the emergency setting Lab Data 10/21/24 20:20 10/21/24 20:20 Radiology Impressions Chest X-Ray 10/21/24 20:03 IMPRESSION: 1. Cardiomegaly. 2. Emphysematous changes. 3. Small left pleural effusion. 4. Sternotomy wires. Laboratory Results WBC 5.35 10^3/uL (3.29-11.43) 10/21/24 20:20 RBC 4.73 10^6/uL (3.85-5.65) 10/21/24 20:20 Hgb 13.90 g/dL (11.27-16.99) 10/21/24 20:20 Hct 42.3 % (37-53) 10/21/24 20:20 MCV 89.4 fl (82-101) 10/21/24 20:20 MCH 29.4 pg (27-33) 10/21/24 20:20 MCHC 32.9 g/dL (30-55) 10/21/24 20:20 RDW 14.3 % (12.1-15.1) 10/21/24 20:20 Plt Count 151 10^3/cmm (157-399) L 10/21/24 20:20 MPV 10.5 fL (7.4-10.4) H 10/21/24 20:20 Neut % (Auto) 80.4 % 10/21/24 20:20 Lymph % (Auto) 10.1 % 10/21/24 20:20 [place] % (Auto) 8.0 % 10/21/24 20:20 Eos % (Auto) 0.9 % 10/21/24 20:20 Baso % (Auto) 0.2 % 10/21/24 20:20 Neut # (Auto) 4.30 10^3/uL (1.8-7.7) 10/21/24 20:20 Lymph # (Auto) 0.5 10^3/uL (0.8-4.8) L 10/21/24 20:20 [place] # (Auto) 0.4 10^3/uL (0.2-0.9) 10/21/24 20:20 Eos # (Auto) 0.1 10^3/uL (0.0-0.8) 10/21/24 20:20 Baso # (Auto) 0.0 10^3/uL (0.0-0.1) 10/21/24 20:20 Nucleated RBC % (auto) 0 % 10/21/24 20:20 Nucleated RBCs # 0.0 /100WBC 10/21/24 20:20 PT 18.50 SECONDS (12.1-14.9) H 10/21/24 20:20 INR 1.44 (0.8-1.2) H 10/21/24 20:20 APTT 33.4 SECONDS (23.9-36.7) 10/21/24 20:20 Sodium 138 mmol/L (136-145) 10/21/24 20:20 Potassium 3.8 mmol/L (3.5-5.1) 10/21/24 20:20 Chloride 99 mmol/L (98-107) 10/21/24 20:20 Carbon Dioxide 29 mmol/L (22-29) 10/21/24 20:20 Anion Gap 13.8 (5-19) 10/21/24 20:20 BUN 18 mg/dL (8-23) 10/21/24 20:20 Creatinine 0.8 mg/dL (0.7-1.2) 10/21/24 20:20 GFR Calculation Not Reportable 10/21/24 20:20 Glucose 137 mg/dL (65-115) H 10/21/24 20:20 Calculated Osmolality 290 mOsm/kg (285-295) 10/21/24 20:20 Lactic Acid 1.5 mmol/L (0.5-2.2) 10/21/24 20:20 Calcium 9.2 mg/dL (8.5-10.5) 10/21/24 20:20 Magnesium 2.2 mg/dL (1.7-2.3) 10/21/24 20:20 Total Bilirubin 0.7 mg/dL (0.15-1.2) 10/21/24 20:20 AST 39 U/L (0-40) 10/21/24 20:20 ALT 47 U/L (0-41) H 10/21/24 20:20 Alkaline Phosphatase 125 U/L (40-130) 10/21/24 20:20 Troponin T Baseline 14 ng/L (0-15) 10/21/24 20:20 C-Reactive Protein 19.9 mg/L (0.0-4.9) H 10/21/24 20:20 NT-Pro-B Natriuret Pep 444 pg/mL (0-450) 10/21/24 20:20 Total Protein 6.9 g/dL (6.6-8.7) 10/21/24 20:20 Albumin 4.2 g/dL (3.5-5.2) 10/21/24 20:20 Globulin 2.7 g/dL (1.3-4.6) 10/21/24 20:20 Lipase 21 U/L (13-60) 10/21/24 20:20 TSH 2.14 uIU/mL (0.27-4.20) 10/21/24 20:20 Influenza A (PCR) Negative (Negative) 10/21/24 20:15 Influenza Type B (PCR) Negative (Negative) 10/21/24 20:15 RSV (PCR) Negative (Negative) 10/21/24 20:15 SARS-CoV-2 (PCR) Negative (Negative) 10/21/24 20:15 All radiology interpretation(s) finalized by discharge Discharge Plan Discharge Admit Provider: Yann Rangel Condition: Stable Coding Level of Care Code ED Fan Runner for g Cathie
[2024-10-21 20:39] LABS: Basophils % 0.2 %; Eosinophils # 0.1 10^3/uL (0.0-0.8); Eosinophils % 0.9 %; Hematocrit 42.3 % (37-53); Lymphocytes # 0.5 10^3/uL (0.8-4.8); Lymphocytes % 10.1 %; Mean Corpuscular HGB Conc 32.9 g/dL (30-55); Mean Corpuscular Hemoglobin 29.4 pg (27-33); Mean Corpuscular Volume 89.4 fl (82-101); Mean Platelet Volume 10.5 fL (7.4-10.4); Monocytes # 0.4 10^3/uL (0.2-0.9); Neutrophils % 80.4 %; Nucleated Red Blood Cells % 0 %; Platelet Count 151 10^3/cmm (157-399); Red Blood Count 4.73 10^6/uL (3.85-5.65); Red Cell Distribution Width 14.3 % (12.1-15.1); White Blood Count 5.35 10^3/uL (3.29-11.43)
[2024-10-21 20:52] LABS: INR 1.44 (0.8-1.2)
[2024-10-21 20:53] LABS: Partial Thromboplastin Time 33.4 SECONDS (23.9-36.7)
[2024-10-21 20:56] LABS: Lactic Sepsis W/Reflex 1.5 mmol/L (0.5-2.2)
[2024-10-21 21:01] LABS: Troponin(5th) Baseline 14 ng/L (0-15)
[2024-10-21 21:10] LABS: Influenza A NEGATIVE (Negative); Influenza B NEGATIVE (Negative); Respiratory Syncytial Virus Ce NEGATIVE (Negative); SARS-CoV-2 PCR NEGATIVE (Negative)
[2024-10-21 21:16] LABS: Alanine Aminotransferase 47 U/L (0-41); Albumin Level 4.2 g/dL (3.5-5.2); Alkaline Phosphatase 125 U/L (40-130); Anion Gap 13.8 (5-19); Aspartate Amino Transferase 39 U/L (0-40); Blood Urea Nitrogen 18 mg/dL (8-23); C Reactive Protein 19.9 mg/L (0.0-4.9); Calcium 9.2 mg/dL (8.5-10.5); Carbon Dioxide 29 mmol/L (22-29); Chloride 99 mmol/L (98-107); Creatinine Clr Calc Pharmacy 97.6392; Globulin 2.7 g/dL (1.3-4.6); Glucose 137 mg/dL (65-115); Lipase 21 U/L (13-60); Magnesium 2.2 mg/dL (1.7-2.3); NT Pro B Type Natriuretic Pept 444 pg/mL (0-450); Osmolality Calculated 290 mOsm/kg (285-295); Potassium 3.8 mmol/L (3.5-5.1); Sodium 138 mmol/L (136-145); Thyroid Stimulating Hormone 2.14 uIU/mL (0.27-4.20); Total Bilirubin 0.7 mg/dL (0.15-1.2); Total Protein 6.9 g/dL (6.6-8.7)
[2024-10-21] MEDS: dilTIAZem 5 mg/mL SDV 5 mL 10 MG IVP (21:49)
[2024-10-21] MEDS: dilTIAZem 100 MG in sodium chloride 0.9% (add-van) 100 ML IV (21:50)
--- NOTE | 2024-10-21 22:03 | ECG_ITS ---
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 Measurements Intervals [place] Rate: 94 P: 0 OK: 0 QRS: 31 QRSD: 94 T: 233 QT: 354 QTc: 444 Interpretive Statements ATRIAL FIBRILLATION ST DEVIATION AND MODERATE T-WAVE ABNORMALITY, CONSIDER LATERAL ISCHEMIA [-0.1+ mV T-WAVE IN I/aVL/V5/V6] Compared to ECG 10/21/2024 19:42:55 No significant changes Electronically Signed On 10-23-2024 08:19:36 TRAIN OPERATIONS SUPERVISOR by Santi Candelario M.D. [id number] [id number]
--- NOTE | 2024-10-21 22:09 | PM.HP ---
Providers/Chief Complaint Primary Care Provider: Topher Sanchez DO Chief Complaint: Weak n/v high pulse History of Present Illness Deacon Allred is a 79 year old male past medical history of coronary artery disease status post CABG in 1998, atrial fibrillation on coumadin, status post TAVR, has endovascular stent graft for abdominal aortic aneurysm, had a stress test that shows prior infarct with significant hanna-infarct ischemia in left circumflex artery territory, had coronary angiogram by Dr. Cerrato 2022 that showed severe stenosis of SVG to OM right before anastomosis. It was ballooned however stent could not be advanced because of acute angle of anastamosis presented today with chief complaint of shortness of breath and acid reflux. Patient is stating that he was at [facility] today when he started experiencing short of breath which is his chronic issue, he sat down twice, he was using his handicap scooter, he had to exert a lot to put the scooter back in the truck, he had to sit in the car to catch his breath again, he did not express any nausea vomiting fever or chest pain. Patient also experienced couple episodes when something liquid creeps up towards his esophagus and he had to take deep breaths and swallow multiple times to ease himself. In the ER diagnosis is consistent with A-fib RVR he was put on Cardizem drip at the time of evaluation heart rate is fluctuant between 95-110 Hemodynamically stable No active chest pain Patient is stating that normally his weight is around 260 pounds he has not gained weight recently, he does not smoke or drink alcohol His INR is 1.4, patient is stating that when he checked INR in the morning it was 1.8 Cardizem drip running at 9 mg/h Review of Systems Const: Reports: chills Eyes: Denies: change in vision ENMT: Denies: throat pain Card: Denies: chest pain Resp: Reports: dyspnea GI: Denies: abdominal pain : Denies: flank pain Medications/Allergies Home Medications ?Medication ?Instructions ?Recorded ?Confirmed ?Last Taken ?Type aspirin 81 mg tablet,delayed 81 mg PO DAILY 08/26/19 06/09/24 10/03/23 08:00 History release (Adult Low Dose Aspirin) atorvastatin 40 mg tablet 40 mg PO DAILY 08/26/19 06/09/24 10/03/23 08:00 History multivitamin 1 tab PO DAILY 08/26/19 06/09/24 10/03/23 History tamsulosin 0.4 mg capsule 0.4 mg PO BID 04/25/20 06/09/24 10/03/23 History [place] Cinnamon 2400mg 2,400 mg PO BID 04/13/23 06/09/24 10/03/23 History cartilage 40 mg-collagen II 10 1 tab PO DAILY 04/13/23 06/09/24 10/03/23 History mg-boron 5 mg-hyaluronate 3.3 mg tablet (Heart Buddy) losartan 50 mg tablet 50 mg PO DAILY 04/13/23 06/09/24 10/03/23 History furosemide 20 mg tablet 40 mg (2 x 20 mg) PO DAILY #90 tabs 12/10/23 06/09/24 Unknown Rx dapagliflozin propanediol 5 mg 5 mg PO DAILY 02/16/24 06/09/24 Unknown History tablet (Farxiga) diltiazem HCl 300 mg 300 mg PO DAILY #90 caps 03/29/24 06/09/24 Unknown Rx capsule,extended release 24 hr isosorbide mononitrate 30 mg 30 mg PO BID #180 tabs 04/29/24 06/09/24 Unknown Rx tablet,extended release 24 hr darolutamide 300 mg tablet (Nubeqa) 300 mg PO BID 06/09/24 06/09/24 Unknown History clonidine HCl 0.1 mg tablet 0.1 mg PO BID PRN blood pressure 06/15/24 Unknown Rx over 180 /110 #90 tabs warfarin 1 mg tablet See Rx Instructions .Route 06/24/24 10/21/24 Unknown Rx .COMPLEX #90 tabs nitroglycerin 0.4 mg sublingual See Rx Instructions .Route 07/09/24 Unknown Rx tablet .COMPLEX #25 tabs carvedilol 25 mg tablet 25 mg PO BID #180 tabs 08/30/24 Unknown Rx warfarin 5 mg tablet 5 mg PO DAILY #90 tabs 08/30/24 10/21/24 Unknown Rx Allergies Allergy/AdvReac Type Severity Reaction Status Date / Time No Known Allergies Allergy Verified 10/21/24 19:49 PFSH Acute PFSH: Medical History Warfarin anticoagulation Lumbar radiculopathy BPH loc w urin obs/LUTS Gross hematuria Prostate cancer History of stomach ulcers SURGERY Hyperlipidemia LDL goal <70 Atrial fibrillation CAD (coronary artery disease) Aortic stenosis Surgical History S/P appendectomy History of surgery of liver H/O left wrist surgery H/O left knee surgery Hx of cholecystectomy H/O cataract extraction H/O shoulder surgery RIGHT H/O abdominal aortic aneurysm repair S/P CABG x 4 H/O endovascular stent graft for abdominal aortic aneurysm S/P TAVR (transcatheter aortic valve replacement) Family History Grandfather Cancer Paternal, lung Father , AT AGE 79 Asthma Mother , AT AGE 26 MVA No problems noted. Social History Smoking and tobacco/nicotine status: former use of tobacco/nicotine Quit status (tobacco/nicotine): has quit using Year quit tobacco: 1976 Alcohol intake: never Substance/Drug Use: unknown Adopted: No Caregiver/support person: No Lives independently: No Household members: spouse Marital status: Current occupational status: retired Current gender identity: Male Vitals/I&O/Wt Last Vital Signs Temp 98.1 F 10/21/24 19:36 Pulse 108 H 10/21/24 22:00 Resp 24 H 10/21/24 22:00 BP 157/88 10/21/24 22:00 Pulse Ox 96 10/21/24 22:00 O2 Del Method Room Air 10/21/24 20:34 Weight last 48 hrs Weight 117.934 kg Physical Exam Narrative: Morbidly obese No acute decompensated heart failure A-fib with RVR heart rate around 110 GCS 15 Nonfocal neuroexam AOx4 S1, S2 murmur systolic Distended nontender abdomen Currently on room air Hemodynamic stable Son at the bedside Lower extremity edema with venous stasis dermatitis Data 10/21/24 20:20 10/21/24 20:20 Micro: Microbiology 10/21/24 20:25 Blood Culture - Preliminary Blood SPECIMEN COLLECTED 10/21/24 20:20 Blood Culture - Preliminary Blood SPECIMEN COLLECTED A&P Assessment and plan (1) Hypertension: Qualifiers: Hypertension type: essential hypertension Qualified Code(s): I10 - Essential (primary) hypertension (2) S/P TAVR (transcatheter aortic valve replacement): (3) S/P CABG x 4: (4) Atrial fibrillation with rapid ventricular response: (5) Dyspnea: (6) Warfarin anticoagulation: (7) Subtherapeutic international normalized ratio (INR): Plan A-fib RVR Patient compliant with his medications He does have chronic shortness of breath Positive stress and GERD related symptoms Cardizem drip running at 9 mg/h which I will discontinue next 1 hour, start 90 mg of Cardizem p.o. every 6 hours to prescribe in 360 mg of Cardizem at the time of discharge instead of 300 mg Continue Coreg Subtherapeutic INR will be on therapeutic Lovenox, will consult pharmacy to dose his Coumadin as well No active chest pain EKG showing ST depression lateral leads which are not new as compared to previous EKGs, no active chest pain patient is hemodynamically stable serial troponin with EKG Subtherapeutic INR: Therapeutic Lovenox 1 dose given at this point Depending on next INR in the morning, bridging therapy will be reconsidered Pharmacy consulted Hypertension: I would avoid clonidine, continue losartan, Coreg and diltiazem for now patient also takes isosorbide mononitrate 30 mg twice a day which I would hold for now since patient is on Cardizem drip, it can be radiated if blood pressure stays uncontrolled on above-mentioned regimen Dyspnea exertion: Chronic in nature Status post TAVR, CABG, He had coronary angiogram by Dr. Cerrato 2022 that showed severe stenosis of SVG to OM right before anastomosis. It was ballooned however stent could not be advanced because of acute angle of anastamosis. Cardiac consistent carb diet Sliding scale GERD: Start Protonix BPH: Continue tamsulosin History of CABG no active chest pain PDMP PDMP Reviewed: Not Reviewed Attestations Medical Necessity Statement*: Anticipating discharge within 48 hours need therapeutic INR and better control of heart rate Diagnoses Essential hypertension I10 Hypertension type: essential hypertension S/P TAVR (transcatheter aortic valve replacement) Z95.2 S/P CABG x 4 Z95.1 Atrial fibrillation with rapid ventricular response I48.91 Dyspnea R06.00 Warfarin anticoagulation Z79.01 Subtherapeutic international normalized ratio (INR) R79.1
[2024-10-21 23:09] LABS: Troponin 5 2HR 14.15 ng/L (0-15); Troponin 5 2HR Delta 0.15 ABS# (0-10)
[2024-10-21 23:41] LABS: Bilirubin Urine Negative (Negative); Blood Urine Negative (Negative); Glucose Urine UA 3+ (Normal); Ketones Urine Trace (Negative); Leukocyte Esterase Urine Negative (Negative); Nitrate Urine Negative (Negative); Protein Urine 1+ (Negative); Urine Appearance Clear (CLEAR); Urine Color Yellow (Yellow)
[2024-10-21] MEDS: enoxaparin 120 mg/0.8 mL Syringe SUBCUT (23:41)
[2024-10-22 00:11] LABS: Mucus Urine TRACE /hpf; Specific Gravity, Urine 1.036 (1.005-1.030); Squamous Epithelial Cell Urine 0-4 /hpf (0-5)
[2024-10-22] MEDS: dilTIAZem 60 mg Tablet 90 MG PO ×3 (00:32→11:11)
--- NOTE | 2024-10-22 02:03 | ECG_ITS ---
[facility]: [facility]24-[facility]-22 Pat Name: Deacon Allred Department: Room: 108 Gender: Male Last Dipper: : 1945 Requested By: Nargis Noble Order Number: [id number] Khanna MD: Santi Candelario M.D. Measurements Intervals [place] Rate: 90 P: 0 TN: 0 QRS: 42 QRSD: 105 T: 70 QT: 385 QTc: 472 Interpretive Statements ATRIAL FIBRILLATION NONSPECIFIC ST & T-WAVE ABNORMALITY Compared to ECG 10/21/2024 23:07:44 Possible ischemia no longer present T-wave abnormality still present Electronically Signed On 10-23-2024 08:18:50 FITNESS INSTRUCTOR by Santi Candelario M.D. [id number]
[2024-10-22 03:09] LABS: Anion Gap 13.2 (5-19); Blood Urea Nitrogen 18 mg/dL (8-23); Calcium 8.7 mg/dL (8.5-10.5); Carbon Dioxide 26 mmol/L (22-29); Chloride 100 mmol/L (98-107); Creatinine Clr Calc Pharmacy 97.6392; Glucose 142 mg/dL (65-115); Magnesium 2.2 mg/dL (1.7-2.3); Osmolality Calculated 286 mOsm/kg (285-295); Phosphorus 3.3 mg/dL (2.5-4.5); Potassium 3.2 mmol/L (3.5-5.1); Sodium 136 mmol/L (136-145)
[2024-10-22 03:12] LABS: Troponin 5 6HR 16.14 ng/L (0-15); Troponin 5 6HR Delta 2.14 ng/L (0-12)
[2024-10-22 03:13] LABS: INR 1.66 (0.8-1.2)
[2024-10-22 06:08] LABS: Glucose Point of Care 156 mg/dL (70-110)
[2024-10-22 07:57] VITALS: BP 119/60; PULSE 77; RESP 18; TEMP 36.6; O2SAT 96
[2024-10-22] MEDS: sennosides-docusate Tablet 1 TAB PO (09:05)
[2024-10-22] MEDS: aspirin 81 mg EC Tablet PO (09:05)
[2024-10-22 09:06] VITALS: BP 115/60
[2024-10-22] MEDS: tamsulosin 0.4 mg Capsule PO (09:06)
[2024-10-22] MEDS: losartan 50 mg Tablet PO (09:06)
[2024-10-22] MEDS: pantoprazole 40 mg SDV IVP (09:06)
[2024-10-22] MEDS: carvedilol 25 mg Tablet PO (09:06)
[2024-10-22] MEDS: atorvastatin 40 mg Tablet PO (09:06)
[2024-10-22] MEDS: insulin lispro 100 unit/1 mL SUBCUT ×2 (09:07→12:22)
[2024-10-22 09:09] VITALS: PULSE 84; RESP 16; O2SAT 96
[2024-10-22 11:18] LABS: Glucose Point of Care 157 mg/dL (70-110)
[2024-10-22 11:57] VITALS: BP 130/72; PULSE 79; RESP 18; TEMP 36.9; O2SAT 93
[2024-10-22 13:04] VITALS: BP 128/73; PULSE 78; RESP 19; TEMP 36.6; O2SAT 96
--- NOTE | 2024-10-22 13:40 | P.DS_ITS ---
Discharge Providers Date of Admission: 10/21/24 22:18 Date of Discharge: October 22, 2024 Attending Provider at Admission: Yann Rangel MD Attending Provider at Discharge: Frank Ruiz MD Primary Care Provider: Topher Sanchez DO Diagnoses at Discharge Discharge Diagnosis (1) Hypertension: Status: Acute Qualifiers: Hypertension type: essential hypertension Qualified Code(s): I10 - Essential (primary) hypertension (2) S/P TAVR (transcatheter aortic valve replacement): Status: Acute (3) S/P CABG x 4: Status: Acute (4) Atrial fibrillation with rapid ventricular response: Status: Acute (5) Dyspnea: Status: Acute (6) Warfarin anticoagulation: Status: Acute (7) Subtherapeutic international normalized ratio (INR): Status: Acute Reason for Visit Reason for Visit: Weak n/v high pulse Hospital Course Hospital Course This is a 79-year-old male with a past medical history of CAD, status post CABG, atrial fibrillation on Coumadin, status post TAVR, tissue valve, 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 Cardizem. Patient was seen the morning of 10/22/2024, eager to go home, he was monitored into the afternoon, will be discharged on Cardizem 360 mg daily, with a close follow-up cardiology outpatient For his Coumadin dosing, he reports that he did not take an extra 1 mg of Coumadin yesterday, his INR this morning was 1.6. He tells me that he is goal of INR is between 2-3, will give him 7.5 mg of Coumadin today. Continue home dose of Coumadin, which is 6 mg every day except Tuesdays and and 7 mg, recheck INR on Friday. No complaints of shortness of breath, during my examination, no crackles in lung gilman, no lower extremity edema Physical Exam Const: COMMON NORMALS: no acute distress and patient oriented x3 Resp: COMMON NORMALS: normal respiratory effort, No retractions, No use of accessory muscles and clear to auscultation bilaterally AUSCULTATION: clear to auscultation bilaterally Cardio: COMMON NORMALS: regular rate, regular rhythm, S1 normal heart sound present and S2 normal heart sound present RATE: regular rate RHYTHM: regular rhythm HEART SOUNDS: S1 normal heart sound present and S2 normal heart sound present GI: COMMON NORMALS: Normal to inspection, nondistended, normoactive bowel sounds present and non-tender Extremity: COMMON NORMALS: no pedal edema Neuro: COMMON NORMALS: patient oriented x3 Psych: COMMON NORMALS: mental status grossly normal Discharge Data Studies Completed and Pending Completed Studies During Hospitalization Category Date Time Status XR chest 1V portable [id number] Stat Exams 10/21/24 20:03 Completed Pending at discharge Category Date Time Status Blood Culture Stat Lab 10/21/24 20:25 Results Prothrombin Time INR AM LABS Lab 10/23/24 04:00 Ordered Prothrombin Time INR AM LABS Lab 10/24/24 04:00 Ordered Prothrombin Time INR AM LABS Lab 10/25/24 04:00 Ordered Radiology Impressions Chest X-Ray 10/21/24 20:03 IMPRESSION: 1. Cardiomegaly. 2. Emphysematous changes. 3. Small left pleural effusion. 4. Sternotomy wires. Laboratory Results WBC 5.35 10^3/uL (3.29-11.43) 10/21/24 20:20 RBC 4.73 10^6/uL (3.85-5.65) 10/21/24 20:20 Hgb 13.90 g/dL (11.27-16.99) 10/21/24 20:20 Hct 42.3 % (37-53) 10/21/24 20:20 MCV 89.4 fl (82-101) 10/21/24 20:20 MCH 29.4 pg (27-33) 10/21/24 20:20 MCHC 32.9 g/dL (30-55) 10/21/24 20:20 RDW 14.3 % (12.1-15.1) 10/21/24 20:20 Plt Count 151 10^3/cmm (157-399) L 10/21/24 20:20 MPV 10.5 fL (7.4-10.4) H 10/21/24 20:20 Neut % (Auto) 80.4 % 10/21/24 20:20 Lymph % (Auto) 10.1 % 10/21/24 20:20 [place] % (Auto) 8.0 % 10/21/24 20:20 Eos % (Auto) 0.9 % 10/21/24 20:20 Baso % (Auto) 0.2 % 10/21/24 20:20 Neut # (Auto) 4.30 10^3/uL (1.8-7.7) 10/21/24 20:20 Lymph # (Auto) 0.5 10^3/uL (0.8-4.8) L 10/21/24 20:20 [place] # (Auto) 0.4 10^3/uL (0.2-0.9) 10/21/24 20:20 Eos # (Auto) 0.1 10^3/uL (0.0-0.8) 10/21/24 20:20 Baso # (Auto) 0.0 10^3/uL (0.0-0.1) 10/21/24 20:20 Nucleated RBC % (auto) 0 % 10/21/24 20:20 Nucleated RBCs # 0.0 /100WBC 10/21/24 20:20 PT 20.70 SECONDS (12.1-14.9) H 10/22/24 02:30 INR 1.66 (0.8-1.2) H 10/22/24 02:30 APTT 33.4 SECONDS (23.9-36.7) 10/21/24 20:20 Sodium 136 mmol/L (136-145) 10/22/24 02:30 Potassium 3.2 mmol/L (3.5-5.1) L 10/22/24 02:30 Chloride 100 mmol/L (98-107) 10/22/24 02:30 Carbon Dioxide 26 mmol/L (22-29) 10/22/24 02:30 Anion Gap 13.2 (5-19) 10/22/24 02:30 BUN 18 mg/dL (8-23) 10/22/24 02:30 Creatinine 0.7 mg/dL (0.7-1.2) 10/22/24 02:30 GFR Calculation Not Reportable 10/22/24 02:30 Glucose 142 mg/dL (65-115) H 10/22/24 02:30 POC Glucose 157 mg/dL (70-110) H 10/22/24 11:13 Calculated Osmolality 286 mOsm/kg (285-295) 10/22/24 02:30 Lactic Acid 1.5 mmol/L (0.5-2.2) 10/21/24 20:20 Calcium 8.7 mg/dL (8.5-10.5) 10/22/24 02:30 Phosphorus 3.3 mg/dL (2.5-4.5) 10/22/24 02:30 Magnesium 2.2 mg/dL (1.7-2.3) 10/22/24 02:30 Total Bilirubin 0.7 mg/dL (0.15-1.2) 10/21/24 20:20 AST 39 U/L (0-40) 10/21/24 20:20 ALT 47 U/L (0-41) H 10/21/24 20:20 Alkaline Phosphatase 125 U/L (40-130) 10/21/24 20:20 Troponin T Baseline 14 ng/L (0-15) 10/21/24 20:20 Troponin T 120 Minute 14.15 ng/L (0-15) 10/21/24 22:46 Delta Troponin T 0.15 ABS# (0-10) 10/21/24 22:46 Troponin T Hi Sens 6Hr 16.14 ng/L (0-15) H 10/22/24 02:30 Troponin T Hi Sens 6Hr Delta 2.14 ng/L (0-12) 10/22/24 02:30 C-Reactive Protein 19.9 mg/L (0.0-4.9) H 10/21/24 20:20 NT-Pro-B Natriuret Pep 444 pg/mL (0-450) 10/21/24 20:20 Total Protein 6.9 g/dL (6.6-8.7) 10/21/24 20:20 Albumin 4.2 g/dL (3.5-5.2) 10/21/24 20:20 Globulin 2.7 g/dL (1.3-4.6) 10/21/24 20:20 Lipase 21 U/L (13-60) 10/21/24 20:20 TSH 2.14 uIU/mL (0.27-4.20) 10/21/24 20:20 Urine Color Yellow (Yellow) 10/21/24 22:15 Urine Appearance Clear (CLEAR) 10/21/24 22:15 Urine pH 5.0 (5-7) 10/21/24 22:15 Ur Specific Huntly 1.036 (1.005-1.030) H 10/21/24 22:15 Urine Protein 1+ (Negative) A 10/21/24 22:15 Urine Glucose (UA) 3+ (Normal) H 10/21/24 22:15 Urine Ketones Trace (Negative) 10/21/24 22:15 Urine Blood Negative (Negative) 10/21/24 22:15 Urine Nitrate Negative (Negative) 10/21/24 22:15 Urine Bilirubin Negative (Negative) 10/21/24 22:15 Urine Urobilinogen 1.0 mg/dL (Negative) 10/21/24 22:15 Ur Leukocyte Esterase Negative (Negative) 10/21/24 22:15 Urine RBC None /hpf (0-2) 10/21/24 22:15 Urine WBC None /hpf (0-5) 10/21/24 22:15 Ur Squamous Epith Cells 0-4 /hpf (0-5) H 10/21/24 22:15 Amorphous Sediment Not Reportable 10/21/24 22:15 Urine Bacteria None /hpf (NONE) 10/21/24 22:15 Urine Mucus Trace /hpf 10/21/24 22:15 Influenza A (PCR) Negative (Negative) 10/21/24 20:15 Influenza Type B (PCR) Negative (Negative) 10/21/24 20:15 RSV (PCR) Negative (Negative) 10/21/24 20:15 SARS-CoV-2 (PCR) Negative (Negative) 10/21/24 20:15 Vitals Last Vital Signs Temp 97.8 F 10/22/24 13:04 Pulse 78 10/22/24 13:04 Resp 19 H 10/22/24 13:04 BP 128/73 10/22/24 13:04 Pulse Ox 96 10/22/24 13:04 O2 Del Method Room Air 10/22/24 11:57 Discharge Plan Discharge Patient Disposition: Home Condition: Stable Prescriptions: New diltiazem HCl [Cardizem CD] 360 mg capsule,extended release 24hr 360 mg PO DAILY 30 Days Qty: 30 0RF Continued aspirin [Adult Low Dose Aspirin] 81 mg tablet,delayed release (DR/EC) 81 mg PO DAILY atorvastatin 40 mg tablet 40 mg PO DAILY multivitamin Tablet 1 tab PO DAILY tamsulosin 0.4 mg capsule 0.4 mg PO BID dapagliflozin propanediol [Farxiga] 5 mg tablet 5 mg PO DAILY Nubeqa 300 mg tablet 300 mg PO BID furosemide 20 mg tablet 40 mg PO DAILY Qty: 90 3RF isosorbide mononitrate 30 mg tablet extended release 24 hr 30 mg PO BID Qty: 180 2RF Rx Instructions: 30 mg orally twice a day; nitroglycerin 0.4 mg tablet, sublingual See Rx Instructions .ROUTE .COMPLEX Qty: 25 2RF Dose Instruction: DISSOLVE 1 TABLET UNDER THE TONGUE EVERY 5 MINUTES NEEDED FOR CHEST PAIN. DO NOT EXCEED A TOTAL OF 3 DOSES IN 15 MINUTES Rx Instructions: DISSOLVE 1 TABLET UNDER THE TONGUE EVERY 5 MINUTES NEEDED FOR CHEST PAIN. DO NOT EXCEED A TOTAL OF 3 DOSES IN 15 MINUTES carvedilol 25 mg tablet 25 mg PO BID Qty: 180 2RF losartan 50 mg tablet 50 mg PO DAILY Stanton Cinnamon 2400mg 2,400 mg PO BID [facility] 40-10-5-3.3 mg Tablet 1 tab PO DAILY warfarin 5 mg tablet 5 mg PO DAILY Qty: 90 3RF Protocol: Dose Management Condition: Friday Dose/Route: 5 mg Instruction: 1 x 5 mg tablet Condition: Friday Dose/Route: 5 mg Instruction: 1 x 5 mg tablet Condition: Friday Dose/Route: 5 mg Instruction: 1 x 5 mg tablet Condition: Friday Dose/Route: 5 mg Instruction: 1 x 5 mg tablet Condition: Dose/Route: 6 mg Instruction: 1 x 1 mg tablet, 1 x 5 mg tablet Condition: Friday Dose/Route: 5 mg Instruction: 1 x 5 mg tablet Condition: Friday Dose/Route: 6 mg Instruction: 1 x 1 mg tablet, 1 x 5 mg tablet Protocol Text: Adjustment Start Date: 10/21/24 INR Value: 21.7 Seconds INR Date: 10/21/24 Recheck Date: 11/04/24 warfarin 1 mg tablet See Rx Instructions .ROUTE .COMPLEX Qty: 90 3RF Protocol: Dose Management Condition: Friday Dose/Route: 5 mg Instruction: 1 x 5 mg tablet Condition: Friday Dose/Route: 5 mg Instruction: 1 x 5 mg tablet Condition: Friday Dose/Route: 5 mg Instruction: 1 x 5 mg tablet Condition: Friday Dose/Route: 5 mg Instruction: 1 x 5 mg tablet Condition: Dose/Route: 6 mg Instruction: 1 x 1 mg tablet, 1 x 5 mg tablet Condition: Friday Dose/Route: 5 mg Instruction: 1 x 5 mg tablet Condition: Friday Dose/Route: 6 mg Instruction: 1 x 1 mg tablet, 1 x 5 mg tablet Protocol Text: Adjustment Start Date: 10/21/24 INR Value: 21.7 Seconds INR Date: 10/21/24 Recheck Date: 11/04/24 Rx Instructions: TAKE 6MG PO DAILY EXCEPT ON AND TAKE 7MG DAILY Discontinued diltiazem HCl 300 mg capsule,extended release 24hr 300 mg PO DAILY Qty: 90 3RF clonidine HCl 0.1 mg tablet 0.1 mg PO BID PRN (Reason: blood pressure over 180 /110) Qty: 90 1RF Discharge Orders: Discharge Order (Routine); Ordered 10/22/24 Ordered By: rFank Ruiz Referrals: Yann Dennison MD [Physician] - 2 weeks Topher Sanchez DO [Primary Care Provider] - 10/25/24 12:00 pm Patient Instructions: Atrial Fibrillation, Dyspnea, Chronic Hypertension (DC), Opioid Safety Activity Restrictions/Additional Instructions: - 7.5 mg of Coumadin today, -Then resume your home dose of 6 mg of Coumadin daily except Tuesdays and take 7 mg -Recheck INR on Friday -Cardizem has been increased to 360 mg daily -Follow-up with cardiology in 1 week -If any chest pain or palpitations go to the emergency room Discharge Attestations Time Spent in Discharge Care*: greater than 30 min Quality Metrics Clinical Quality Measures [ No reported AMI, CVA or VTE this stay] Coding Level of Care Code 53376 Total time (in minutes) for Discharge: 45 Diagnoses Essential hypertension I10 Hypertension type: essential hypertension S/P TAVR (transcatheter aortic valve replacement) Z95.2 S/P CABG x 4 Z95.1 Atrial fibrillation with rapid ventricular response I48.91 Dyspnea R06.00 Warfarin anticoagulation Z79.01 Subtherapeutic international normalized ratio (INR) R79.1
--- NOTE | 2024-10-22 14:22 | PC.NURSE ---
Dr Ruiz told nurse, after patient had been discharged, to give patient the following instructions: take 7.5mg warfarin tonight, then continue regular schedule except for on Friday and , on which the patient is supposed to take 6. Have INR rechecked on Wednesday 10/25. Also told patient that diltiazem was called into [facility].
== END 2024-10-22 14:25 | disposition home or self-care (01) ==
LOC: ER 22:03 → CSU 22:24
PROVIDERS: Admitting Provider Internal Medicine; Emergency Provider Emergency Medicine; PCP Electrodiagnostic Medicine; Visit Provider Family Medicine
DX: I48.91 Unspecified atrial fibrillation (principal); I25.10 Atherosclerotic heart disease of native coronary artery without angina pectoris; Z95.1 Presence of aortocoronary bypass graft; Z79.01 Long term (current) use of anticoagulants; Z79.82 Long term (current) use of aspirin; Z79.899 Other long term (current) drug therapy; Z85.038 Personal history of other malignant neoplasm of large intestine; Z87.11 Personal history of peptic ulcer disease; E78.5 Hyperlipidemia, unspecified; Z90.49 Acquired absence of other specified parts of digestive tract; Z87.891 Personal history of nicotine dependence; E66.01 Morbid (severe) obesity due to excess calories; Z68.35 Body mass index [BMI] 35.0-35.9, adult; I10 Essential (primary) hypertension; Z11.52 Encounter for screening for COVID-19
CPT/HCPCS: 36415; 36416; 71045; 80048; 80053; 81001; 82962; 83605; 83690; 83735; 83880; 84100; 84443; 84484; 85025; 85610; 85730; 86140; 87040; 87637; 93005; 96365; 96372; 96375; 96376; 99285; A9270; G0378; J1650; J1815; J2470; J3490

== ENCOUNTER → 2024-11-04 08:57 | Outpatient (BNVA) | payer MEDICARE, OTHER, SELFPAY | PROVIDERS: PCP Electrodiagnostic Medicine; Visit Provider Internal Medicine | DX: I25.10 Atherosclerotic heart disease of native coronary artery without angina pectoris (principal); I48.20 Chronic atrial fibrillation, unspecified | CPT/HCPCS: 85610 ==

== ENCOUNTER → 2024-11-11 10:55 | Outpatient (BNVA) | payer MEDICARE, OTHER, SELFPAY | PROVIDERS: PCP Electrodiagnostic Medicine; Visit Provider Internal Medicine | DX: I25.10 Atherosclerotic heart disease of native coronary artery without angina pectoris (principal); I48.20 Chronic atrial fibrillation, unspecified | CPT/HCPCS: 85610 ==

== ENCOUNTER → 2024-11-18 09:39 | Outpatient (BNVA) | payer MEDICARE, OTHER, SELFPAY | PROVIDERS: PCP Electrodiagnostic Medicine; Visit Provider Internal Medicine | DX: I25.10 Atherosclerotic heart disease of native coronary artery without angina pectoris (principal); I48.20 Chronic atrial fibrillation, unspecified | CPT/HCPCS: 85610 ==

== ENCOUNTER → 2024-12-02 10:01 | Outpatient (BNVA) | payer MEDICARE, OTHER, SELFPAY | PROVIDERS: PCP Electrodiagnostic Medicine; Visit Provider Internal Medicine | DX: I25.10 Atherosclerotic heart disease of native coronary artery without angina pectoris (principal); I48.20 Chronic atrial fibrillation, unspecified | CPT/HCPCS: 85610 ==

== ENCOUNTER → 2024-12-08 09:58 | Outpatient (BNVA) | payer MEDICARE, OTHER, SELFPAY | PROVIDERS: PCP Electrodiagnostic Medicine; Visit Provider Nurse Practitioner Family | DX: I48.20 Chronic atrial fibrillation, unspecified (principal); Z79.01 Long term (current) use of anticoagulants; Z79.82 Long term (current) use of aspirin; I25.10 Atherosclerotic heart disease of native coronary artery without angina pectoris; K21.9 Gastro-esophageal reflux disease without esophagitis; I10 Essential (primary) hypertension; Z86.79 Personal history of other diseases of the circulatory system; Z95.1 Presence of aortocoronary bypass graft; Z95.2 Presence of prosthetic heart valve; Z95.828 Presence of other vascular implants and grafts; Z87.891 Personal history of nicotine dependence | CPT/HCPCS: 99214 ==

== ENCOUNTER → 2024-12-16 10:06 | Outpatient (BNVA) | payer MEDICARE, OTHER, SELFPAY | PROVIDERS: PCP Electrodiagnostic Medicine; Visit Provider Internal Medicine | DX: I25.10 Atherosclerotic heart disease of native coronary artery without angina pectoris (principal); I48.20 Chronic atrial fibrillation, unspecified | CPT/HCPCS: 85610 ==

== ENCOUNTER 2024-12-29 07:19 | Outpatient (CLI) | payer MEDICARE, OTHER, SELFPAY ==
[2024-12-29 07:35] VITALS: BMI 34.2
--- NOTE | 2024-12-29 07:35 | ECG_ITS ---
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 Interpretive Statements Lung unchanged pre/post procedure; Intraprocedure shortess of breath; Symptoms resoled by discharge PROCEDURE: At the baseline, the EKG revealed atrial fibrillation with a controlled ventricular response rate. Occasional PVCs. Diffuse nonspecific ST-T changes. The baseline heart was 90 bpm with a blood pressue of 129/78 mm of Hg Lexiscan was infused over a period of 20 seconds. A total of 0.4 milligrams of Lexiscan was infused. The stress phase was continued for a total of 5 minutes. Heart rate at the end of the stress phase was 97 bpm with a blood pressure 127/74 mm of Hg. The EKG at the peak infusion revealed more prominent ST changes especially in the inferolateral leads. Sestamibi was injected 20 seconds after the Lexiscan infusion. Heart rate at the end of the recovery phase was 94 bpm with a blood pressure of 133/74 mm of Hg. CONCLUSION: 1. No significant EKG changes with the LexiScan infusion 2. No LexiScan induced chest pain or cardiac arrhythmia 3. Normal blood pressure and heart rate response 4. Sestamibi/sestamibi perfusion scan pending; see separate report. Electronically Signed On 01-03-2025 14:07:43 CDT by Chet Hartman M.D. [email or web address]
--- NOTE | 2024-12-29 07:35 | NMCV_ITS ---
NM goyo perf SPECT r/s* [id number] Deacon Allred Age: 79 Gender: M : 1945 Exam Date: 12/29/2024 08:15 Ordering Phys: Larisa Duran Technologist: SANTI Snow Exam Location: [facility] [address] Indications: cp STRESS TEST Please see separate stress test report in [facility] for full findings IMAGE PROTOCOL Rest/Stress 1 Lexiscan Day Radiopharmaceutical Dose (mCi) Administration Site Administered by Rest: Tc-99m 10.5 IV Tanesha Kilpatrick, [employer] SUPERVISOR Sestamibi Stress:Tc-99m 33 IV Tanesha Finesse, [employer] SUPERVISOR Sestamibi Rest: 29-Dec-2024 60 Discovery 630 Stress: 29-Dec-2024 30 Discovery 630 0.4mg Lexiscan. Supine position only as patient was unable to lay prone. SPECT RESULTS Technical Quality: Good Raw Data Analysis: Normal Image Corrections: No attenuation or motion correction applied Summed Stress Score: 9 Summed Rest Score: 5 Summed Difference Score: 4 PERFUSION FINDINGS Moderate area of moderately decreased tracer uptake was noted in the basal and mid inferolateral, mid anterolateral, apical lateral and apical anterior segments. Significant reversibility was noted basal inferolateral segment with slight reversibility in the mid inferolateral and mid anterolateral segments FUNCTIONAL RESULTS (calculated via Gated SPECT) Stress Image LV EF (%): 59 Stress EDV (mL):108 TID: 1.11 Stress ESV (mL):44 FUNCTIONAL FINDINGS: Segmental wall motion analysis revealing no gross wall motion abnormalities IMPRESSIONS 1. Myocardial perfusion imaging revealing moderate area of moderately decreased tracer uptake involving the inferolateral, anterolateral and apical regions with significant reversibility in the inferolateral region and slight reversibility in the anterolateral region, suggesting myocardial scarring with significant ischemia in the distribution of the left circumflex artery. 2. Normal LV ejection fraction of 59%. 3. LV wall motion analysis revealing no gross wall motion abnormalities. 4. Normal LV volume Compared to the previous study from 05/02/2023, there appears to be no evidence of ischemia in the LAD territory. Dr Chet Hartman MD [facility] (Electronically Signed) Final Date: 29 Dec 2024 12:44 S
[2024-12-29] MEDS: regadenoson 0.4 Mg/5 ml Syringe IVP (09:06)
[2024-12-29 09:17] VITALS: BP 133/74; PULSE 92
== END 2024-12-29 07:20 | disposition home or self-care (01) ==
LOC: CDL 07:20
PROVIDERS: PCP Electrodiagnostic Medicine; Visit Provider Nurse Practitioner Family
DX: I25.10 Atherosclerotic heart disease of native coronary artery without angina pectoris (principal); R93.1 Abnormal findings on diagnostic imaging of heart and coronary circulation
CPT/HCPCS: 36415; 78452; 93017; 96374; A9500; J2785

== ENCOUNTER → 2025-01-13 09:39 | Outpatient (BNVA) | payer MEDICARE, OTHER, SELFPAY | PROVIDERS: PCP Electrodiagnostic Medicine; Visit Provider Internal Medicine | DX: I25.10 Atherosclerotic heart disease of native coronary artery without angina pectoris (principal); I48.20 Chronic atrial fibrillation, unspecified | CPT/HCPCS: 85610 ==

== ENCOUNTER → 2025-02-07 12:36 | Outpatient (BNVA) | payer MEDICARE, OTHER, SELFPAY | PROVIDERS: PCP Electrodiagnostic Medicine; Visit Provider Internal Medicine | DX: I25.10 Atherosclerotic heart disease of native coronary artery without angina pectoris (principal); I48.20 Chronic atrial fibrillation, unspecified; Z79.01 Long term (current) use of anticoagulants; Z79.82 Long term (current) use of aspirin; I10 Essential (primary) hypertension; Z95.2 Presence of prosthetic heart valve; Z95.1 Presence of aortocoronary bypass graft; Z87.891 Personal history of nicotine dependence | CPT/HCPCS: 85610; 99214 ==

== ENCOUNTER → 2025-03-10 11:34 | Outpatient (BNVA) | payer MEDICARE, OTHER, SELFPAY | PROVIDERS: PCP Electrodiagnostic Medicine; Visit Provider Internal Medicine | DX: I25.10 Atherosclerotic heart disease of native coronary artery without angina pectoris (principal); I48.20 Chronic atrial fibrillation, unspecified | CPT/HCPCS: 85610 ==

== ENCOUNTER → 2025-04-07 10:45 | Outpatient (BNVA) | payer MEDICARE, OTHER, SELFPAY | PROVIDERS: PCP Electrodiagnostic Medicine; Visit Provider Internal Medicine | DX: I25.10 Atherosclerotic heart disease of native coronary artery without angina pectoris (principal); I48.20 Chronic atrial fibrillation, unspecified | CPT/HCPCS: 85610 ==

== ENCOUNTER → 2025-05-05 10:02 | Outpatient (BNVA) | payer MEDICARE, OTHER, SELFPAY | PROVIDERS: PCP Electrodiagnostic Medicine; Visit Provider Internal Medicine | DX: I25.10 Atherosclerotic heart disease of native coronary artery without angina pectoris (principal); I48.20 Chronic atrial fibrillation, unspecified | CPT/HCPCS: 85610 ==

== ENCOUNTER → 2025-05-12 09:43 | Outpatient (BNVA) | payer MEDICARE, OTHER, SELFPAY | PROVIDERS: PCP Electrodiagnostic Medicine; Visit Provider Internal Medicine | DX: I25.10 Atherosclerotic heart disease of native coronary artery without angina pectoris (principal); I48.20 Chronic atrial fibrillation, unspecified | CPT/HCPCS: 85610 ==

== ENCOUNTER → 2025-06-09 09:46 | Outpatient (BNVA) | payer MEDICARE, OTHER, SELFPAY | PROVIDERS: PCP Electrodiagnostic Medicine; Visit Provider Internal Medicine | DX: I25.10 Atherosclerotic heart disease of native coronary artery without angina pectoris (principal); I48.20 Chronic atrial fibrillation, unspecified | CPT/HCPCS: 85610 ==

== ENCOUNTER → 2025-07-07 11:41 | Outpatient (BNVA) | payer MEDICARE, OTHER, SELFPAY | PROVIDERS: PCP Electrodiagnostic Medicine; Visit Provider Internal Medicine | DX: I25.10 Atherosclerotic heart disease of native coronary artery without angina pectoris (principal); Z95.2 Presence of prosthetic heart valve | CPT/HCPCS: 85610 ==

== ENCOUNTER → 2025-08-04 10:10 | Outpatient (BNVA) | payer MEDICARE, OTHER, SELFPAY | PROVIDERS: PCP Electrodiagnostic Medicine; Visit Provider Internal Medicine | DX: I25.10 Atherosclerotic heart disease of native coronary artery without angina pectoris (principal); I48.20 Chronic atrial fibrillation, unspecified | CPT/HCPCS: 85610 ==

== ENCOUNTER → 2025-08-16 15:09 | Outpatient (BNVA) | payer MEDICARE, OTHER, SELFPAY | PROVIDERS: PCP Electrodiagnostic Medicine; Visit Provider Internal Medicine | DX: I25.10 Atherosclerotic heart disease of native coronary artery without angina pectoris (principal); I10 Essential (primary) hypertension; Z95.2 Presence of prosthetic heart valve; Z95.828 Presence of other vascular implants and grafts; Z95.1 Presence of aortocoronary bypass graft; I48.91 Unspecified atrial fibrillation; Z79.01 Long term (current) use of anticoagulants; R06.09 Other forms of dyspnea; Z87.891 Personal history of nicotine dependence | CPT/HCPCS: 99214 ==